=== PATIENT | female | born 1945 | race Caucasian/White ===

== ENCOUNTER 2017-03-20 14:15 | Emergency (ER) | payer MEDICARE, BC ==
[2017-03-20 14:26] VITALS: RESP 18
[2017-03-20] MEDS ORDERED: ONDANSETRON 4 MG/2 ML VIAL IVP STA (14:34)
[2017-03-20] MEDS ORDERED: KETOROLAC 30 MG/ML 1 ML VIAL IVP STA (14:35)
--- NOTE | 2017-03-20 14:39 | ED ---
Nausea/Vomiting/Diarrhea HPI - General Chief complaint: Nausea/Vomiting/Diarrhea Stated complaint: WEAKNESS, FLU LIKE SYMPTOMS Time Seen by Provider: 03/20/17 14:18 Source: patient Mode of arrival: EMS - History of Present Illness Initial comments: This patient is a 71-year-old woman who presents with a number of symptoms. She states that she was in her usual state of health until about 3 days ago when she developed a nonproductive cough. Starting last night she also has been having vomiting and diarrhea as well as myalgias. Patient has had 3 episodes of vomiting this morning. She has not noted blood or bile. She also has had probably 5 episodes of loose bowel movements without noting any blood. MD complaint: nausea, vomiting, diarrhea -: days(s) Description of Vomiting: food contents Associated Abdominal Pain: No Associated Symptoms: myalgias, cough - Related Data Home Medications Medication Instructions Recorded Confirmed Multivitamins, Thera [Multivitamin 1 tab PO DAILY 04/13/16 03/20/17 (formulary)] Nitroglycerin Sl Tabs [Nitrostat] 0.4 mg SUBLINGUAL Q5M PRN 04/13/16 03/20/17 Cyanocobalamin [Vitamin B-12 1,000 mcg SQ Q30D 03/20/17 03/20/17 Injection] Losartan Potassium [Cozaar] 25 mg PO DAILY 03/20/17 03/20/17 Pravastatin Sodium [Pravachol] 20 mg PO HS 03/20/17 03/20/17 amLODIPine [Norvasc] 5 mg PO BID 03/20/17 03/20/17 Previous Rx's Medication Instructions Recorded Ondansetron Odt [Zofran ODT] 4 mg PO Q8HR PRN #10 tab 03/20/17 Allergies Allergy/AdvReac Type Severity Reaction Status Date / Time Penicillins Allergy Rash/Hives Verified 03/20/17 14:36 Sulfa (Sulfonamide Allergy Rash/Hives Verified 03/20/17 14:36 Antibiotics) Review of Systems ROS Statement: Those systems with pertinent positive or pertinent negative responses have been documented in the HPI. ROS Other: All systems not noted in ROS Statement are negative. Constitutional: Denies: fever, chills Respiratory: Reports: cough. Denies: dyspnea, wheezes Cardiovascular: Denies: chest pain, palpitations, syncope Gastrointestinal: Reports: nausea, vomiting, diarrhea. Denies: abdominal pain, constipation, hematemesis, melena, hematochezia Genitourinary: Denies: dysuria Musculoskeletal: Denies: back pain Skin: Denies: rash Neurological: Denies: weakness, numbness Past Medical History Past Medical History: Chest Pain / Angina, CVA/TIA, Fibromyalgia, GERD/Reflux, Hyperlipidemia, Hypertension Additional Past Medical History / Comment(s): DIET CONTROLLED DM-NO MEDS AND NOT CURRENTLY CHECKING BS, ANEMIA,MURMUR,STROKE 2000-LT SIDED WEAKNESS, TIA'S, SINUS PROBLEMS,VARICOSE VEINS, LEAKAGE OF URINE WEARS A PAD,ARTHRITIS,FR RT PATELLA."STATED THEY FOUND MRSA RT KNEE 2012(WAS UNABLE TO TYPE IN UNDER THE MDROS SCREEN) History of Any Multi-Drug Resistant Organisms: MRSA Date of last positivie culture/infection: . MDRO Source:: . Past Surgical History: Back Surgery, Cholecystectomy, Heart Catheterization, Hysterectomy, Tonsillectomy Additional Past Surgical History / Comment(s): DEJAN CATARACT LENSES,COLONOSCOPY, GASTRIC BYPASS,ABDOMINALPLASTY,HERNIA REPAIR,FIDEL CARPAL TUNNEL,RT PATELLA REPAIRED. Past Anesthesia/Blood Transfusion Reactions: No Reported Reaction Past Psychological History: No Psychological Hx Reported Additional Psychological History / Comment(s): PT FEELS LONELY LOST A VERY CLOSE MALE FREIND LESS THAN A YEAR AGO,CRIES EASILY, HER SON HAS BEEN THINKING ABOUT MOVING BACK TO [place]. HAS DIFFICULTY STAYING [place].PT DENIES ANY THOUGHTS OF HARMING SELF NO SUICIDAL THOUGHTS BUT STATED FEELS SOME WHAT HOPLESS /LONELY. Smoking Status: Former smoker Past Alcohol Use History: None Reported Additional Past Alcohol Use History / Comment(s): QUIT 1994 SMOKED A FEW YEARS Past Drug Use History: None Reported - Past Family History Mother Additional Family Medical History / Comment(s): BRAIN TUMOR Father Family Medical History: Myocardial Infarction ([place]) Course Vital Signs 03/20/17 03/20/17 03/20/17 14:19 15:16 16:13 Temperature 98.6 F 98.6 F Pulse Rate 84 75 Respiratory 18 18 Rate Blood Pressure 209/99 225/98 190/86 O2 Sat by Pulse 98 94 L Oximetry 03/20/17 16:50 Temperature 98.7 F Pulse Rate 72 Respiratory 18 Rate Blood Pressure 176/87 O2 Sat by Pulse 94 L Oximetry Medical Decision Making - Medical Decision Making This patient is 71-year-old woman who is in with vomiting and diarrhea, the vomiting has resolved with ondansetron and she is requesting to eat. The patient did have some left trapezius pain and tenderness which only had some minimal improvement with ketorolac and then was given additional Tylenol with codeine. - Lab Data Result diagrams: 03/20/17 14:44 03/20/17 14:44 Lab Results 03/20/17 03/20/17 03/20/17 Range/Units 14:44 14:44 15:39 WBC 13.4 H (3.8-10.6) k/uL RBC 4.07 (3.80-5.40) m/uL Hgb 12.5 (11.4-16.0) gm/dL Hct 37.4 (34.0-46.0) % MCV 91.9 (80.0-100.0) fL MCH 30.7 (25.0-35.0) pg MCHC 33.4 (31.0-37.0) g/dL RDW 13.0 (11.5-15.5) % Plt Count 232 (150-450) k/uL Neutrophils % 82 % Lymphocytes % 13 % Monocytes % 4 % Eosinophils % 1 % Basophils % 0 % Neutrophils # 11.0 H (1.3-7.7) k/uL Lymphocytes # 1.7 (1.0-4.8) k/uL Monocytes # 0.5 (0-1.0) k/uL Eosinophils # 0.1 (0-0.7) k/uL Basophils # 0.0 (0-0.2) k/uL Sodium 139 (137-145) mmol/L Potassium 4.1 (3.5-5.1) mmol/L Chloride 107 (98-107) mmol/L Carbon Dioxide 22 (22-30) mmol/L Anion Gap 10 mmol/L BUN 15 (7-17) mg/dL Creatinine 0.65 (0.52-1.04) mg/dL Est GFR (MDRD) Af Amer >60 (>60 ml/min/1.73 sqM) Est GFR (MDRD) Non-Af >60 (>60 ml/min/1.73 sqM) Glucose 120 H (74-99) mg/dL Calcium 8.9 (8.4-10.2) mg/dL Total Bilirubin 0.8 (0.2-1.3) mg/dL AST 26 (14-36) U/L ALT 25 (9-52) U/L Alkaline Phosphatase 109 (38-126) U/L Total Protein 7.5 (6.3-8.2) g/dL Albumin 4.1 (3.5-5.0) g/dL Amylase 51 (30-110) U/L Lipase 62 (23-300) U/L Urine Color Light Yellow Urine Appearance Clear (Clear) Urine pH 6.0 (5.0-8.0) Ur Specific [place] 1.008 (1.001-1.035) Urine Protein Negative (Negative) Urine Glucose (UA) Negative (Negative) Urine Ketones 1+ H (Negative) Urine Blood Negative (Negative) Urine Nitrite Negative (Negative) Urine Bilirubin Negative (Negative) Urine Urobilinogen <2.0 (<2.0) mg/dL Ur Leukocyte Esterase Negative (Negative) Disposition Clinical Impression: Gastroenteritis, Hypertension Disposition: HOME SELF-CARE Condition: Good Instructions: Acute Nausea and Vomiting (ED), Hypertension (ED) Prescriptions: Ondansetron Odt [Zofran ODT] 4 mg PO Q8HR PRN #10 tab PRN Reason: Nausea Referrals: Jag Suarez MD [Primary Care Provider] - 1-2 days
[2017-03-20 15:00] LABS: Basophils % (A) 0 %; CHCM 33.9; Eosinophils # (A) 0.1 k/uL (0-0.7); Eosinophils % (A) 1 %; HCT 37.4 % (34.0-46.0); HDW 2.41; HGB 12.5 gm/dL (11.4-16.0); Luc # (Auto) 0.12; Luc % (Auto) 1; Lymphocytes # (A) 1.7 k/uL (1.0-4.8); Lymphocytes % (A) 13 %; MCH 30.7 pg (25.0-35.0); MCHC 33.4 g/dL (31.0-37.0); MCV 91.9 fL (80.0-100.0); Mean Platelet Volume 7.2; Monocytes # (A) 0.5 k/uL (0-1.0); Monocytes % (A) 4 %; Neutrophils % (A) 82 %; RBC 4.07 m/uL (3.80-5.40); WBC 13.4 k/uL (3.8-10.6); WBC (Perox) 13.13
[2017-03-20 15:05] LABS: ALT 25 U/L (9-52); AST 26 U/L (14-36); Alkaline Phosphatase 109 U/L (38-126); Amylase 51 U/L (30-110); Anion Gap 10 mmol/L; Blood Urea Nitrogen 15 mg/dL (7-17); Calcium 8.9 mg/dL (8.4-10.2); Carbon Dioxide 22 mmol/L (22-30); Chloride 107 mmol/L (98-107); Glucose 120 mg/dL (74-99); Non-African American GFR(MDRD) >60 (>60 ml/min/1.73 sqM); Potassium 4.1 mmol/L (3.5-5.1); Sodium 139 mmol/L (137-145); Total Bilirubin 0.8 mg/dL (0.2-1.3); Total Protein 7.5 g/dL (6.3-8.2)
[2017-03-20] MEDS ORDERED: LOSARTAN 25 MG TAB PO STA (15:45)
[2017-03-20] MEDS ORDERED: amLODIPine 5 MG TAB PO STA (15:45)
--- NOTE | 2017-03-20 15:47 | XR ---
EXAMINATION TYPE: XR chest 2V DATE OF EXAM: 03/20/2017 3:41 PM COMPARISON: Chest x-ray and CTA chest July 09, 2016. HISTORY: Cough and congestion for 3 days. TECHNIQUE: Frontal and lateral views of the chest are obtained. FINDINGS: There is no focal air space opacity, pleural effusion, or pneumothorax seen. The cardiac silhouette size is within normal limits with atherosclerotic and ectatic thoracic aorta. The osseou s structures are demineralized. Surgical changes epigastric region are noted. IMPRESSION: No acute cardiopulmonary process. No significant change from prior.
[2017-03-20 15:48] LABS: Appearance,Urine Clear (Clear); Bilirubin,Urine Negative (Negative); Glucose,Urine (UA) Negative (Negative); Ketones,Urine 1+ (Negative); Leukocyte Esterase,Urine Negative (Negative); Nitrite,Urine Negative (Negative); Protein,Urine Negative (Negative); Specific Gravity,Urine 1.008 (1.001-1.035); UA Billing (MACRO vs. MICRO) CHEM; Urobilinogen,Urine <2.0 mg/dL (<2.0)
[2017-03-20 16:51] VITALS: BP 176/87; PULSE 72; TEMP 98.7
[2017-03-20] MEDS ORDERED: Acetaminophen-Codeine 300-30mg TAB PO STA (17:27)
== END 2017-03-20 18:09 | disposition home or self-care (01) ==
LOC: EC 14:15
DX: K52.9 Noninfective gastroenteritis and colitis, unspecified (principal); I10 Essential (primary) hypertension; M25.512 Pain in left shoulder; E78.5 Hyperlipidemia, unspecified; Z90.49 Acquired absence of other specified parts of digestive tract; Z87.891 Personal history of nicotine dependence; Z88.0 Allergy status to penicillin; Z88.2 Allergy status to sulfonamides; Z79.899 Other long term (current) drug therapy
CPT/HCPCS: 99284; 96374; 96375; 36415; 80053; 82150; 83690; 85025; 81003; 71020; J2405; J1885

== ENCOUNTER → 2017-07-07 | Outpatient (CLI) | payer MEDICARE, BC ==
--- NOTE | 2017-07-10 10:03 | MM ---
Reason for exam: screening (asymptomatic). Last mammogram was performed 1 year ago. History: Patient is postmenopausal. Family history of breast cancer in sister and breast cancer in sister at age 62. Physical Findings: A clinical breast exam by your physician is recommended on an annual basis and results should be correlated with mammographic findings. MG 3D Screening Mammo W/Cad Bilateral CC and MLO view(s) were taken. Prior study comparison: July 06, 2016, bilateral MG 3d screening mammo w/cad. June 19, 2015, bilateral MG screening mammo w CAD. There are scattered fibroglandular densities. Finding: There are stable vascular calcifications. There is no discrete abnormality. No significant changes in finding since July 06, 2016 and June 19, 2015. ASSESSMENT: Benign, BI-RAD 2 RECOMMENDATION: Routine screening mammogram of both breasts in 1 year.
== END | disposition home or self-care (01) ==
LOC: RADMAMWWP 09:28
PROVIDERS: ATTEND Internal Medicine
DX: Z12.31 Encounter for screening mammogram for malignant neoplasm of breast (principal)
CPT/HCPCS: 77063; G0202

== ENCOUNTER 2017-12-09 11:28 | Emergency (ER) | payer MEDICARE, BC ==
[2017-12-09 11:43] VITALS: TEMP 97.2
--- NOTE | 2017-12-09 11:43 | ED ---
Fall HPI - General Stated Complaint: Fall Time Seen by Provider: 12/09/17 11:28 Source: patient, EMS, RN notes reviewed, old records reviewed - History of Present Illness Initial Comments: This is a 72-year-old female who states she was washing her dentures off at a sink when she started swinging back and forth in family fell backwards hitting her head against a door and the floor. She had no loss of consciousness loss of function to her upper or lower extremities she complains some head neck and lower back pain as well as some pain to the right ankle. EMS was called she was transported here. She was running with a cervical collar in place no backboard. Complaints at this time she did have her follow recently where she hit her head very hard on the floor the CAT scan she states that time which showed no evidence of acute bleeds. She denies any palpitations or chest pain. MD Complaint: fall - Related Data Home Medications Medication Instructions Recorded Confirmed Multivitamins, Thera [Multivitamin 1 tab PO DAILY 04/13/16 12/09/17 (formulary)] Nitroglycerin Sl Tabs [Nitrostat] 0.4 mg SUBLINGUAL Q5M PRN 04/13/16 12/09/17 Aspirin EC [Ecotrin Low Dose] 81 mg PO DAILY 12/09/17 12/09/17 Carboxymethylcellulose Sodium 1 drop BOTH EYES DAILY PRN 12/09/17 12/09/17 [Refresh Tears] Losartan Potassium 100 mg PO DAILY 12/09/17 12/09/17 amLODIPine [Norvasc] 10 mg PO DAILY 12/09/17 12/09/17 Allergies Allergy/AdvReac Type Severity Reaction Status Date / Time Penicillins Allergy Rash/Hives Verified 12/09/17 12:15 Sulfa (Sulfonamide Allergy Rash/Hives Verified 12/09/17 12:15 Antibiotics) Review of Systems ROS Statement: Those systems with pertinent positive or pertinent negative responses have been documented in the HPI. ROS Other: All systems not noted in ROS Statement are negative. Past Medical History Past Medical History: Chest Pain / Angina, CVA/TIA, Fibromyalgia, GERD/Reflux, Hyperlipidemia, Hypertension Additional Past Medical History / Comment(s): DIET CONTROLLED DM-NO MEDS AND NOT CURRENTLY CHECKING BS, ANEMIA,MURMUR,STROKE 2000-LT SIDED WEAKNESS, TIA'S, SINUS PROBLEMS,VARICOSE VEINS, LEAKAGE OF URINE WEARS A PAD,ARTHRITIS,FR RT PATELLA."STATED THEY FOUND MRSA RT KNEE 2012(WAS UNABLE TO TYPE IN UNDER THE MDROS SCREEN) History of Any Multi-Drug Resistant Organisms: MRSA Date of last positivie culture/infection: . MDRO Source:: . Past Surgical History: Back Surgery, Cholecystectomy, Heart Catheterization, Hysterectomy, Tonsillectomy Additional Past Surgical History / Comment(s): DEJAN CATARACT LENSES,COLONOSCOPY, GASTRIC BYPASS,ABDOMINALPLASTY,HERNIA REPAIR,FIDEL CARPAL TUNNEL,RT PATELLA REPAIRED. Past Anesthesia/Blood Transfusion Reactions: No Reported Reaction Past Psychological History: No Psychological Hx Reported Additional Psychological History / Comment(s): PT FEELS LONELY LOST A VERY CLOSE MALE FREIND LESS THAN A YEAR AGO,CRIES EASILY, HER SON HAS BEEN THINKING ABOUT MOVING BACK TO [place]. HAS DIFFICULTY STAYING [place].PT DENIES ANY THOUGHTS OF HARMING SELF NO SUICIDAL THOUGHTS BUT STATED FEELS SOME WHAT HOPLESS /LONELY. Smoking Status: Former smoker Past Alcohol Use History: None Reported Additional Past Alcohol Use History / Comment(s): QUIT 1994 SMOKED A FEW YEARS Past Drug Use History: None Reported - Past Family History Mother Additional Family Medical History / Comment(s): BRAIN TUMOR Father Family Medical History: Myocardial Infarction ([place]) General Exam - General Exam Comments Initial Comments: This is a well-developed well-nourished awake alert oriented 3 female she has a Florencio Coma Scale of 15 Limitations: physical limitation General appearance: alert Head exam: Present: normocephalic (Tennis palpation of the right parietal scalp no step-off or crepitation no obvious ecchymosis no open wounds.) Eye exam: Present: normal appearance, PERRL, EOMI. Absent: scleral icterus, conjunctival injection, periorbital swelling ENT exam: Present: normal exam, mucous membranes moist Neck exam: Present: normal inspection, tenderness (Tenderness palpation over the right lateral neck musculature no midline spinous process tenderness). Absent: meningismus, lymphadenopathy Respiratory exam: Present: normal lung sounds bilaterally. Absent: respiratory distress, wheezes, rales, rhonchi, stridor Cardiovascular Exam: Present: regular rate, normal rhythm, normal heart sounds. Absent: systolic murmur, diastolic murmur, rubs, gallop, clicks GI/Abdominal exam: Present: soft, normal bowel sounds. Absent: distended, tenderness, guarding, rebound, rigid Rectal exam: Present: deferred Extremities exam: Present: full ROM, tenderness (Mild tenderness palpation of the anterior medial right ankle no step-off or crepitation small area of ecchymosis noted) Back exam: Present: normal inspection, tenderness, paraspinal tenderness. Absent: full ROM, CVA tenderness (R), CVA tenderness (L), muscle spasm, rash noted Psychiatric exam: Present: normal affect, normal mood Skin exam: Present: warm, dry, intact, normal color. Absent: rash Course Vital Signs 12/09/17 12/09/17 12/09/17 11:33 13:30 15:07 Temperature 97.2 F L Pulse Rate 59 L 54 L 89 Respiratory 16 18 20 Rate Blood Pressure 206/93 182/70 208/100 O2 Sat by Pulse 98 96 96 Oximetry 12/09/17 12/09/17 12/09/17 15:52 16:04 16:30 Temperature Pulse Rate 66 67 Respiratory 18 Rate Blood Pressure 203/89 203/89 150/74 O2 Sat by Pulse 98 Oximetry Medical Decision Making - Medical Decision Making I did reevaluate patient on multiple occasions patient's blood pressure remained elevated she was ultimately given some medication and didn't improve. She is asymptomatic the presentation is consistent with a vasovagal episode. She was encouraged to increase her fluids follow-up with her doctor return when necessary - Lab Data Result diagrams: 12/09/17 11:50 12/09/17 11:50 Lab Results 12/09/17 12/09/17 12/09/17 Range/Units 11:50 11:50 11:50 WBC 6.5 (3.8-10.6) k/uL RBC 4.25 (3.80-5.40) m/uL Hgb 12.2 (11.4-16.0) gm/dL Hct 38.0 (34.0-46.0) % MCV 89.4 (80.0-100.0) fL MCH 28.8 (25.0-35.0) pg MCHC 32.2 (31.0-37.0) g/dL RDW 13.6 (11.5-15.5) % Plt Count 242 (150-450) k/uL Neutrophils % 55 % Lymphocytes % 34 % Monocytes % 6 % Eosinophils % 2 % Basophils % 0 % Neutrophils # 3.6 (1.3-7.7) k/uL Lymphocytes # 2.2 (1.0-4.8) k/uL Monocytes # 0.4 (0-1.0) k/uL Eosinophils # 0.2 (0-0.7) k/uL Basophils # 0.0 (0-0.2) k/uL PT 9.6 (9.0-12.0) sec INR 1.0 (<1.2) APTT 22.6 (22.0-30.0) sec Sodium 142 (137-145) mmol/L Potassium 3.9 (3.5-5.1) mmol/L Chloride 106 (98-107) mmol/L Carbon Dioxide 28 (22-30) mmol/L Anion Gap 8 mmol/L BUN 14 (7-17) mg/dL Creatinine 0.72 (0.52-1.04) mg/dL Est GFR (MDRD) Af Amer >60 (>60 ml/min/1.73 sqM) Est GFR (MDRD) Non-Af >60 (>60 ml/min/1.73 sqM) Glucose 105 H (74-99) mg/dL Calcium 9.1 (8.4-10.2) mg/dL Magnesium 2.1 (1.6-2.3) mg/dL Total Bilirubin 0.3 (0.2-1.3) mg/dL AST 36 (14-36) U/L ALT 28 (9-52) U/L Alkaline Phosphatase 92 (38-126) U/L Total Creatine Kinase (30-135) U/L CK-MB (CK-2) (0.0-2.4) ng/mL CK-MB (CK-2) Rel Index Troponin I (0.000-0.034) ng/mL Total Protein 7.5 (6.3-8.2) g/dL Albumin 4.1 (3.5-5.0) g/dL Urine Color Urine Appearance (Clear) Urine pH (5.0-8.0) Ur Specific [place] (1.001-1.035) Urine Protein (Negative) Urine Glucose (UA) (Negative) Urine Ketones (Negative) Urine Blood (Negative) Urine Nitrite (Negative) Urine Bilirubin (Negative) Urine Urobilinogen (<2.0) mg/dL Ur Leukocyte Esterase (Negative) 12/09/17 12/09/17 Range/Units 11:50 12:07 WBC (3.8-10.6) k/uL RBC (3.80-5.40) m/uL Hgb (11.4-16.0) gm/dL Hct (34.0-46.0) % MCV (80.0-100.0) fL MCH (25.0-35.0) pg MCHC (31.0-37.0) g/dL RDW (11.5-15.5) % Plt Count (150-450) k/uL Neutrophils % % Lymphocytes % % Monocytes % % Eosinophils % % Basophils % % Neutrophils # (1.3-7.7) k/uL Lymphocytes # (1.0-4.8) k/uL Monocytes # (0-1.0) k/uL Eosinophils # (0-0.7) k/uL Basophils # (0-0.2) k/uL PT (9.0-12.0) sec INR (<1.2) APTT (22.0-30.0) sec Sodium (137-145) mmol/L Potassium (3.5-5.1) mmol/L Chloride (98-107) mmol/L Carbon Dioxide (22-30) mmol/L Anion Gap mmol/L BUN (7-17) mg/dL Creatinine (0.52-1.04) mg/dL Est GFR (MDRD) Af Amer (>60 ml/min/1.73 sqM) Est GFR (MDRD) Non-Af (>60 ml/min/1.73 sqM) Glucose (74-99) mg/dL Calcium (8.4-10.2) mg/dL Magnesium (1.6-2.3) mg/dL Total Bilirubin (0.2-1.3) mg/dL AST (14-36) U/L ALT (9-52) U/L Alkaline Phosphatase (38-126) U/L Total Creatine Kinase 71 (30-135) U/L CK-MB (CK-2) 0.6 (0.0-2.4) ng/mL CK-MB (CK-2) Rel Index 0.8 Troponin I <0.012 (0.000-0.034) ng/mL Total Protein (6.3-8.2) g/dL Albumin (3.5-5.0) g/dL Urine Color Light Yellow Urine Appearance Clear (Clear) Urine pH 7.0 (5.0-8.0) Ur Specific [place] 1.004 (1.001-1.035) Urine Protein Negative (Negative) Urine Glucose (UA) Negative (Negative) Urine Ketones Negative (Negative) Urine Blood Negative (Negative) Urine Nitrite Negative (Negative) Urine Bilirubin Negative (Negative) Urine Urobilinogen <2.0 (<2.0) mg/dL Ur Leukocyte Esterase Negative (Negative) - EKG Data -: EKG Interpreted by Ga EKG shows normal: sinus rhythm (Sinus rhythm rate of 59 PA interval 138 QRS duration 88 QT/QTC of 460/411 st-t wave changes) - Radiology Data Radiology results: report reviewed (I did review the imaging and reports no acute findings.), image reviewed Disposition Clinical Impression: Fall, Vasovagal episode, Hypertension, Dehydration Disposition: HOME SELF-CARE Condition: Good Instructions: Near Syncope (ED), Fall Prevention for Older Adults (ED), Dehydration (ED) Referrals: Jag Suarez MD [Primary Care Provider] - 1-2 days
[2017-12-09 11:59] LABS: Basophils % (A) 0 %; Eosinophils # (A) 0.2 k/uL (0-0.7); Eosinophils % (A) 2 %; HGB 12.2 gm/dL (11.4-16.0); Lymphocytes # (A) 2.2 k/uL (1.0-4.8); Lymphocytes % (A) 34 %; MCH 28.8 pg (25.0-35.0); MCHC 32.2 g/dL (31.0-37.0); MCV 89.4 fL (80.0-100.0); Mean Platelet Volume 7.8; Monocytes # (A) 0.4 k/uL (0-1.0); Monocytes % (A) 6 %; Neutrophils # (A) 3.6 k/uL (1.3-7.7); Neutrophils % (A) 55 %; Platelet Count 242 k/uL (150-450); RBC 4.25 m/uL (3.80-5.40); RDW 13.6 % (11.5-15.5); WBC 6.5 k/uL (3.8-10.6)
[2017-12-09 12:12] LABS: Partial Thromboplastin Time 22.6 sec (22.0-30.0); Prothrombin Time 9.6 sec (9.0-12.0)
[2017-12-09 12:14] LABS: Appearance,Urine Clear (Clear); Bilirubin,Urine Negative (Negative); Blood,Urine Negative (Negative); Color,Urine Light Yellow; Glucose,Urine (UA) Negative (Negative); Ketones,Urine Negative (Negative); Leukocyte Esterase,Urine Negative (Negative); Nitrite,Urine Negative (Negative); Protein,Urine Negative (Negative); Specific Gravity,Urine 1.004 (1.001-1.035); Urobilinogen,Urine <2.0 mg/dL (<2.0)
[2017-12-09 12:21] LABS: ALT 28 U/L (9-52); AST 36 U/L (14-36); Albumin 4.1 g/dL (3.5-5.0); Alkaline Phosphatase 92 U/L (38-126); Anion Gap 8 mmol/L; Blood Urea Nitrogen 14 mg/dL (7-17); Calcium 9.1 mg/dL (8.4-10.2); Carbon Dioxide 28 mmol/L (22-30); Chloride 106 mmol/L (98-107); Creatine Kinase 71 U/L (30-135); Glucose 105 mg/dL (74-99); Magnesium 2.1 mg/dL (1.6-2.3); Sodium 142 mmol/L (137-145); Total Bilirubin 0.3 mg/dL (0.2-1.3); Total Protein 7.5 g/dL (6.3-8.2)
[2017-12-09 12:24] LABS: Potassium 3.9 mmol/L (3.5-5.1)
[2017-12-09 12:33] LABS: Creatine Kinase MB 0.6 ng/mL (0.0-2.4); Troponin I <0.012 ng/mL (0.000-0.034)
--- NOTE | 2017-12-09 14:08 | CT ---
EXAMINATION TYPE: CT brain cspine wo con DATE OF EXAM: 12/09/2017 COMPARISON: Previous study dated 07/09/2016 HISTORY: Fall CT DLP: Brain (892.10) and C-spine (283.10) mGycm Automated exposure control for dose reduction was used. TECHNIQUE: CT scan of the head and cervical spine are performed without contrast. FINDINGS: BRAIN: There are generalized changes of sulcal prominence and ventriculomegaly, compatible with atrop hic change. There is evidence of a previous right MCA infarct. There is no acute focal lesion, mass e ffect or midline shift identified. I do not see evidence of intracranial blood. Visualized portions of the paranasal sinuses and mastoids are clear. No depressed skull fracture is s een. IMPRESSION: 1. NO ACUTE INTRACRANIAL ABNORMALITY. 2. EVIDENCE OF AN OLD RIGHT MCA INFARCT. 3. MILD ATROPHIC CHANGE. 4. CHRONIC WHITE MATTER ISCHEMIC CHANGE. CERVICAL SPINE: Visualized portions of the lungs are clear. Prevertebral soft tissues are normal. Vertebral body height and alignment are maintained. Atlantoaxial relationships are normal. There is d egenerative disc disease and hypertrophic spondylosis at C5-6, C6-7 and C7-T1. There is uncovertebral joint disease at these levels. There is mild facet arthropathy on the left at C2-3. There is a bony spur present posterior laterally on the left at C5-6 causing intervertebral foraminal narrowing at th is level on the left. No definite protrusion is seen. No fractures identified. IMPRESSION: 1. NO ACUTE OSSEOUS LESION. 2. DEGENERATIVE CHANGE. 3. INTERVERTEBRAL FORAMINAL NARROWING ON THE LEFT, C5-6.
[2017-12-09] MEDS ORDERED: SODIUM CHLORIDE 0.9% 500 ML IV STA (14:15)
[2017-12-09] MEDS ORDERED: ACETAMINOPHEN TAB 500 MG TAB PO STA (14:56)
[2017-12-09] MEDS ORDERED: amLODIPine 10 MG TAB PO STA (15:02)
--- NOTE | 2017-12-09 15:07 | XR ---
EXAMINATION TYPE: XR lumbosacral spine min 4V DATE OF EXAM: 12/09/2017 CLINICAL HISTORY: Falls with back pain. TECHNIQUE: Frontal, lateral, and oblique images of the lumbar spine are obtained. COMPARISON: None FINDINGS: There are 5 lumbar type vertebral bodies identified. Endplate spurring is noted at multipl e levels. There is no compression deformity identified. There is grade 1 anterolisthesis of L4 on L5. There is grade 1 retrolisthesis of L2 on L3. Calcifications are identified in the aorta. Multiple padgett rgical clips are identified in the upper abdomen. There is loss of intervertebral disc space height a t all levels. No acute fracture or subluxation is identified. IMPRESSION: Degenerative changes are identified without an acute abnormality.
--- NOTE | 2017-12-09 15:19 | XR ---
EXAMINATION TYPE: XR chest 2V DATE OF EXAM: 12/09/2017 COMPARISON: March 20, 2017 HISTORY: Cough TECHNIQUE: Frontal and lateral views of the chest are obtained. FINDINGS: There is no focal air space opacity, pleural effusion, or pneumothorax seen. The cardiac silhouette size is within normal limits. The osseous structures are intact. IMPRESSION: No acute cardiopulmonary process.
--- NOTE | 2017-12-09 15:21 | XR ---
EXAMINATION TYPE: XR pelvis AP view DATE OF EXAM: 12/09/2017 CLINICAL HISTORY: Fall with pain TECHNIQUE: A single AP view of the pelvis is obtained. COMPARISON: None. FINDINGS: There is been previous intramedullary nailing and screw placement in the right femur. There is a displaced fracture of the lesser trochanter. There is no definite acute fracture subluxation id entified. Soft tissues are unremarkable. IMPRESSION: Previous intervention in the right femur is noted. There is a displaced fracture fragment from a less er trochanter fracture, this is felt to be related to prior injury. No definite acute fracture or sub luxation is identified.
[2017-12-09] MEDS ORDERED: hydrALAZINE HCL 20 MG/ML 1 ML VIAL IVP STA (16:04)
[2017-12-09 16:55] VITALS: BP 150/70; PULSE 70; RESP 20
== END 2017-12-09 17:04 | disposition home or self-care (01) ==
LOC: EC 11:28
DX: I10 Essential (primary) hypertension (principal); E86.0 Dehydration; R55 Syncope and collapse; M54.2 Cervicalgia; M54.5 Low back pain; M25.571 Pain in right ankle and joints of right foot; Z86.73 Personal history of transient ischemic attack (TIA), and cerebral infarction without residual deficits; Z86.14 Personal history of Methicillin resistant Staphylococcus aureus infection; Z95.5 Presence of coronary angioplasty implant and graft; Z87.891 Personal history of nicotine dependence; Z79.82 Long term (current) use of aspirin; Z79.899 Other long term (current) drug therapy; Z88.0 Allergy status to penicillin; Z88.2 Allergy status to sulfonamides; W01.198A Fall on same level from slipping, tripping and stumbling with subsequent striking against other object, initial encounter; Y92.009 Unspecified place in unspecified non-institutional (private) residence as the place of occurrence of the external cause; Y93.89 Activity, other specified
CPT/HCPCS: 36415; 93005; 80053; 82550; 82553; 83735; 84484; 85025; 85610; 85730; 81003; 72110; 72170; 71046; 72125; 70450; 99285; 96374; 96361; J0360

== ENCOUNTER → 2018-09-24 | Outpatient (CLI) | payer MEDICARE, BC ==
[2018-09-24 13:10] LABS: Cholesterol 182 mg/dL (<200); HDL Cholesterol 78 mg/dL (40-60); LDL Cholesterol,Calculated 76 mg/dL (0-99); Triglycerides 142 mg/dL (<150)
--- NOTE | 2018-09-27 10:26 | MM ---
Reason for exam: screening (asymptomatic). Last mammogram was performed 1 year and 3 months ago. History: Patient is postmenopausal. Family history of breast cancer in sister and breast cancer in sister at age 62. MG 3D Screening Mammo W/Cad Bilateral CC and MLO view(s) were taken. Prior study comparison: July 07, 2017, bilateral MG 3d screening mammo w/cad. July 06, 2016, bilateral MG 3d screening mammo w/cad. There are scattered fibroglandular densities. There are benign appearing bilateral calcifications. No suspicious abnormality. No significant changes when compared with prior studies. ASSESSMENT: Benign, BI-RAD 2 RECOMMENDATION: Routine screening mammogram of both breasts in 1 year.
== END | disposition home or self-care (01) ==
LOC: RADMAMWWP 11:51
PROVIDERS: ATTEND Internal Medicine Hospice and Palliative Medicine
DX: Z12.31 Encounter for screening mammogram for malignant neoplasm of breast (principal); E78.5 Hyperlipidemia, unspecified
CPT/HCPCS: 36415; 77063; 77067; 80061

== ENCOUNTER 2018-11-09 19:39 | Inpatient (IN) | payer MEDICARE, BC ==
[2018-11-09] MEDS ORDERED: SODIUM CHLORIDE 0.9% 500 ML 500 ML IV STA (19:48)
[2018-11-09] MEDS ORDERED: SODIUM CHLORIDE 0.9% 1,000 ML IV STA (19:48)
--- NOTE | 2018-11-09 19:49 | ED ---
Neuro HPI - General Stated Complaint: Poss CVA Time Seen by Provider: 11/09/18 19:48 Source: RN notes reviewed, old records reviewed - History of Present Illness Is the patient presenting with stroke symptoms?: No Initial Comments: This is a 73-year-old female the ER for evaluation. Patient resents today for evaluation regarding altered mental status, decreased level responsiveness. Patient's poor strain history obtained from family members at bedside as well as EMS and patient's chart Location: altered Place: home (Extended care facility) Severity: mild Quality: weak Improves With: none Worsens With: none Context: gradual onset Associated Symptoms: confusion, loss of appetite, weakness Treatments Prior to Arrival: none - Related Data Home Medications: Home Medications Medication Instructions Recorded Confirmed Multivitamins, Thera [Multivitamin 1 tab PO DAILY 04/13/16 11/09/18 (formulary)] Nitroglycerin Sl Tabs [Nitrostat] 0.4 mg SUBLINGUAL Q5M PRN 04/13/16 11/09/18 Aspirin EC [Ecotrin Low Dose] 81 mg PO DAILY 12/09/17 11/09/18 Acetaminophen Suppository [Tylenol 325 mg RECTAL Q4H PRN 11/09/18 11/09/18 Suppository] Atorvastatin [Lipitor] 10 mg PO HS 11/09/18 11/09/18 Bisacodyl 10 mg RECTAL DAILY PRN 11/09/18 11/09/18 Cholecalciferol (Vitamin D3) 2,000 unit PO DAILY 11/09/18 11/09/18 [Vitamin D3] Clopidogrel [Plavix] 75 mg PO DAILY 11/09/18 11/09/18 Cyanocobalamin (Vitamin B-12) 1,000 mcg PO DAILY 11/09/18 11/09/18 [Vitamin B-12] Folic Acid 1 mg PO DAILY 11/09/18 11/09/18 Lactose-Reduced Food [Ensure Plus] 1 can PO TID 11/09/18 11/09/18 Lansoprazole [Prevacid] 30 mg PO DAILY 11/09/18 11/09/18 Losartan [Cozaar] 50 mg PO DAILY 11/09/18 11/09/18 Magnesium Hydroxide [Milk of 2,400 mg PO DAILY PRN 11/09/18 11/09/18 Magnesia] Menthol [Biofreeze] 1 applic TOPICAL BID 11/09/18 11/09/18 Metoprolol Succinate (ER) [Toprol 25 mg PO DAILY 11/09/18 11/09/18 Xl] Na Phos,M-B/Na Phos,Di-Ba [Fleet 133 ml RECTAL ONCE PRN 11/09/18 11/09/18 Adult] Sertraline [Zoloft] 50 mg PO HS 11/09/18 11/09/18 amLODIPine BESYLATE 5 mg PO DAILY 11/09/18 11/09/18 Allergies/Adverse Reactions: Allergies Allergy/AdvReac Type Severity Reaction Status Date / Time lisinopril Allergy Unknown Verified 11/09/18 20:12 Penicillins Allergy Rash/Hives Verified 11/09/18 20:12 Sulfa (Sulfonamide Allergy Rash/Hives Verified 11/09/18 20:12 Antibiotics) Review of Systems ROS Statement: Those systems with pertinent positive or pertinent negative responses have been documented in the HPI. ROS Other: All systems not noted in ROS Statement are negative. General Exam General appearance: alert, in no apparent distress Head exam: Present: atraumatic, normocephalic, normal inspection Eye exam: Present: normal appearance, PERRL, EOMI. Absent: scleral icterus, conjunctival injection, periorbital swelling ENT exam: Present: normal exam, mucous membranes moist Neck exam: Present: normal inspection. Absent: tenderness, meningismus, lymphadenopathy Respiratory exam: Present: normal lung sounds bilaterally. Absent: respiratory distress, wheezes, rales, rhonchi, stridor Cardiovascular Exam: Present: regular rate, normal rhythm, normal heart sounds. Absent: systolic murmur, diastolic murmur, rubs, gallop, clicks GI/Abdominal exam: Present: soft, normal bowel sounds. Absent: distended, tenderness, guarding, rebound, rigid Extremities exam: Present: normal inspection, full ROM, normal capillary refill. Absent: tenderness, pedal edema, joint swelling, calf tenderness Back exam: Present: normal inspection Neurological exam: Present: alert, oriented X3, CN II-XII intact Psychiatric exam: Present: normal affect, normal mood Skin exam: Present: warm, dry, intact, normal color. Absent: rash Stroke MDM - Lab Data Result diagrams: 11/09/18 19:55 11/09/18 19:55 Lab Results 11/09/18 11/09/18 11/09/18 Range/Units 19:55 19:55 19:55 WBC 11.7 H (3.8-10.6) k/uL RBC 3.45 L (3.80-5.40) m/uL Hgb 10.3 L (11.4-16.0) gm/dL Hct 30.8 L (34.0-46.0) % MCV 89.5 (80.0-100.0) fL MCH 29.9 (25.0-35.0) pg MCHC 33.5 (31.0-37.0) g/dL RDW 12.8 (11.5-15.5) % Plt Count 335 (150-450) k/uL Neutrophils % 77 % Lymphocytes % 15 % Monocytes % 7 % Eosinophils % 1 % Basophils % 0 % Neutrophils # 8.9 H (1.3-7.7) k/uL Lymphocytes # 1.7 (1.0-4.8) k/uL Monocytes # 0.8 (0-1.0) k/uL Eosinophils # 0.1 (0-0.7) k/uL Basophils # 0.0 (0-0.2) k/uL PT (9.0-12.0) sec INR (<1.2) APTT (22.0-30.0) sec Sodium 139 (137-145) mmol/L Potassium 4.3 (3.5-5.1) mmol/L Chloride 104 (98-107) mmol/L Carbon Dioxide 28 (22-30) mmol/L Anion Gap 7 mmol/L BUN 22 H (7-17) mg/dL Creatinine 0.64 (0.52-1.04) mg/dL Est GFR (CKD-EPI)AfAm >90 (>60 ml/min/1.73 sqM) Est GFR (CKD-EPI)NonAf 88 (>60 ml/min/1.73 sqM) Glucose 144 H (74-99) mg/dL Plasma Lactic Acid Ten (0.7-2.0) mmol/L Calcium 9.1 (8.4-10.2) mg/dL Phosphorus 3.9 (2.5-4.5) mg/dL Magnesium 2.0 (1.6-2.3) mg/dL Total Bilirubin 0.3 (0.2-1.3) mg/dL AST 19 (14-36) U/L ALT 19 (9-52) U/L Alkaline Phosphatase 79 (38-126) U/L Total Creatine Kinase <20 L (30-135) U/L CK-MB (CK-2) <0.2 (0.0-2.4) ng/mL CK-MB (CK-2) Rel Index Troponin I <0.012 (0.000-0.034) ng/mL Total Protein 6.4 (6.3-8.2) g/dL Albumin 3.2 L (3.5-5.0) g/dL Urine Color Urine Appearance (Clear) Urine pH (5.0-8.0) Ur Specific [place] (1.001-1.035) Urine Protein (Negative) Urine Glucose (UA) (Negative) Urine Ketones (Negative) Urine Blood (Negative) Urine Nitrite (Negative) Urine Bilirubin (Negative) Urine Urobilinogen (<2.0) mg/dL Ur Leukocyte Esterase (Negative) Urine RBC (0-5) /hpf Urine WBC (0-5) /hpf Ur Squamous Epith Cells (0-4) /hpf Calcium Oxalate Crystal (None) /hpf Amorphous Sediment (None) /hpf Urine Bacteria (None) /hpf Hyaline Casts (0-2) /lpf Urine Mucus (None) /hpf Influenza Type A RNA (Not Detectd) Influenza Type B (PCR) (Not Detectd) 11/09/18 11/09/18 11/09/18 Range/Units 19:55 19:55 21:02 WBC (3.8-10.6) k/uL RBC (3.80-5.40) m/uL Hgb (11.4-16.0) gm/dL Hct (34.0-46.0) % MCV (80.0-100.0) fL MCH (25.0-35.0) pg MCHC (31.0-37.0) g/dL RDW (11.5-15.5) % Plt Count (150-450) k/uL Neutrophils % % Lymphocytes % % Monocytes % % Eosinophils % % Basophils % % Neutrophils # (1.3-7.7) k/uL Lymphocytes # (1.0-4.8) k/uL Monocytes # (0-1.0) k/uL Eosinophils # (0-0.7) k/uL Basophils # (0-0.2) k/uL PT 9.5 (9.0-12.0) sec INR 0.9 (<1.2) APTT 25.3 (22.0-30.0) sec Sodium (137-145) mmol/L Potassium (3.5-5.1) mmol/L Chloride (98-107) mmol/L Carbon Dioxide (22-30) mmol/L Anion Gap mmol/L BUN (7-17) mg/dL Creatinine (0.52-1.04) mg/dL Est GFR (CKD-EPI)AfAm (>60 ml/min/1.73 sqM) Est GFR (CKD-EPI)NonAf (>60 ml/min/1.73 sqM) Glucose (74-99) mg/dL Plasma Lactic Acid Ten 1.6 (0.7-2.0) mmol/L Calcium (8.4-10.2) mg/dL Phosphorus (2.5-4.5) mg/dL Magnesium (1.6-2.3) mg/dL Total Bilirubin (0.2-1.3) mg/dL AST (14-36) U/L ALT (9-52) U/L Alkaline Phosphatase (38-126) U/L Total Creatine Kinase (30-135) U/L CK-MB (CK-2) (0.0-2.4) ng/mL CK-MB (CK-2) Rel Index Troponin I (0.000-0.034) ng/mL Total Protein (6.3-8.2) g/dL Albumin (3.5-5.0) g/dL Urine Color Yellow Urine Appearance Cloudy H (Clear) Urine pH 5.5 (5.0-8.0) Ur Specific [place] 1.019 (1.001-1.035) Urine Protein Trace H (Negative) Urine Glucose (UA) Negative (Negative) Urine Ketones Negative (Negative) Urine Blood Negative (Negative) Urine Nitrite Negative (Negative) Urine Bilirubin Negative (Negative) Urine Urobilinogen 2.0 (<2.0) mg/dL Ur Leukocyte Esterase Small H (Negative) Urine RBC 5 (0-5) /hpf Urine WBC 31 H (0-5) /hpf Ur Squamous Epith Cells 10 H (0-4) /hpf Calcium Oxalate Crystal Few H (None) /hpf Amorphous Sediment Few H (None) /hpf Urine Bacteria Occasional H (None) /hpf Hyaline Casts 1 (0-2) /lpf Urine Mucus Occasional H (None) /hpf Influenza Type A RNA (Not Detectd) Influenza Type B (PCR) (Not Detectd) 11/09/18 Range/Units 21:10 WBC (3.8-10.6) k/uL RBC (3.80-5.40) m/uL Hgb (11.4-16.0) gm/dL Hct (34.0-46.0) % MCV (80.0-100.0) fL MCH (25.0-35.0) pg MCHC (31.0-37.0) g/dL RDW (11.5-15.5) % Plt Count (150-450) k/uL Neutrophils % % Lymphocytes % % Monocytes % % Eosinophils % % Basophils % % Neutrophils # (1.3-7.7) k/uL Lymphocytes # (1.0-4.8) k/uL Monocytes # (0-1.0) k/uL Eosinophils # (0-0.7) k/uL Basophils # (0-0.2) k/uL PT (9.0-12.0) sec INR (<1.2) APTT (22.0-30.0) sec Sodium (137-145) mmol/L Potassium (3.5-5.1) mmol/L Chloride (98-107) mmol/L Carbon Dioxide (22-30) mmol/L Anion Gap mmol/L BUN (7-17) mg/dL Creatinine (0.52-1.04) mg/dL Est GFR (CKD-EPI)AfAm (>60 ml/min/1.73 sqM) Est GFR (CKD-EPI)NonAf (>60 ml/min/1.73 sqM) Glucose (74-99) mg/dL Plasma Lactic Acid Ten (0.7-2.0) mmol/L Calcium (8.4-10.2) mg/dL Phosphorus (2.5-4.5) mg/dL Magnesium (1.6-2.3) mg/dL Total Bilirubin (0.2-1.3) mg/dL AST (14-36) U/L ALT (9-52) U/L Alkaline Phosphatase (38-126) U/L Total Creatine Kinase (30-135) U/L CK-MB (CK-2) (0.0-2.4) ng/mL CK-MB (CK-2) Rel Index Troponin I (0.000-0.034) ng/mL Total Protein (6.3-8.2) g/dL Albumin (3.5-5.0) g/dL Urine Color Urine Appearance (Clear) Urine pH (5.0-8.0) Ur Specific [place] (1.001-1.035) Urine Protein (Negative) Urine Glucose (UA) (Negative) Urine Ketones (Negative) Urine Blood (Negative) Urine Nitrite (Negative) Urine Bilirubin (Negative) Urine Urobilinogen (<2.0) mg/dL Ur Leukocyte Esterase (Negative) Urine RBC (0-5) /hpf Urine WBC (0-5) /hpf Ur Squamous Epith Cells (0-4) /hpf Calcium Oxalate Crystal (None) /hpf Amorphous Sediment (None) /hpf Urine Bacteria (None) /hpf Hyaline Casts (0-2) /lpf Urine Mucus (None) /hpf Influenza Type A RNA Not Detected (Not Detectd) Influenza Type B (PCR) Not Detected (Not Detectd) - Medical Decision Making 73 female the ER with altered mental status 3-4 days, decreased RESPONSIVENESS. THIS IS A RECURRENT ISSUE FOR THIS PATIENT, SHE IS COMING IN FROM [facility] IN [address] FOR REHABILITATION. PATIENT IS MULTIPLE RECENT HOSPITAL ADMISSIONS. PATIENT COMING IN TODAY AGAIN FOR ALTERED MENTAL STATUS FOUND TO HAVE URINARY TRACT INFECTION - EKG Data -: EKG Interpreted by Me (EKG shows normal sinus rhythm rate of 69, VT 1:30, QRS 70, QTc 437) Past Medical History Past Medical History: Chest Pain / Angina, CVA/TIA, Fibromyalgia, GERD/Reflux, Hyperlipidemia, Hypertension Additional Past Medical History / Comment(s): DIET CONTROLLED DM-NO MEDS AND NOT CURRENTLY CHECKING BS, ANEMIA,MURMUR,STROKE 2000-LT SIDED WEAKNESS, TIA'S, SINUS PROBLEMS,VARICOSE VEINS, LEAKAGE OF URINE WEARS A PAD,ARTHRITIS,FR RT PATELLA."STATED THEY FOUND MRSA RT KNEE 2012(WAS UNABLE TO TYPE IN UNDER THE MDROS SCREEN) History of Any Multi-Drug Resistant Organisms: MRSA Date of last positivie culture/infection: . MDRO Source:: . Past Surgical History: Back Surgery, Cholecystectomy, Heart Catheterization, Hysterectomy, Tonsillectomy Additional Past Surgical History / Comment(s): DEJAN CATARACT LENSES,COLONOSCOPY, GASTRIC BYPASS,ABDOMINALPLASTY,HERNIA REPAIR,FIDEL CARPAL TUNNEL,RT PATELLA REPAIRED. Past Anesthesia/Blood Transfusion Reactions: No Reported Reaction Past Psychological History: No Psychological Hx Reported Additional Psychological History / Comment(s): PT FEELS LONELY LOST A VERY CLOSE MALE FREIND LESS THAN A YEAR AGO,CRIES EASILY, HER SON HAS BEEN THINKING ABOUT MOVING BACK TO [place]. HAS DIFFICULTY STAYING ALSEEP.PT DENIES ANY THOUGHTS OF HARMING SELF NO SUICIDAL THOUGHTS BUT STATED FEELS SOME WHAT HOPLESS /LONELY. Smoking Status: Former smoker Past Alcohol Use History: None Reported Additional Past Alcohol Use History / Comment(s): QUIT 1995 SMOKED A FEW YEARS Past Drug Use History: None Reported - Past Family History Mother Additional Family Medical History / Comment(s): BRAIN TUMOR Father Family Medical History: Myocardial Infarction ([place]) Course Vital Signs 11/09/18 11/09/18 11/09/18 19:59 21:14 22:29 Temperature 100.0 F H Pulse Rate 71 74 73 Respiratory 15 17 18 Rate Blood Pressure 135/71 157/78 149/77 O2 Sat by Pulse 96 99 99 Oximetry - Reevaluation(s) Reevaluation #1: 11/09/18 23:19 medical record is reviewed Reevaluation #2: 11/09/18 23:19 Patient remains with altered mental status, family states not acting at baseline , decreased level responsiveness Disposition Clinical Impression: UTI (urinary tract infection), Weakness, Altered mental state, Dehydration Disposition: ADMITTED IP TO THIS [facility] Condition: Fair Is patient prescribed a controlled substance at d/c from ED?: No Referrals: Samanta Samuel MD [Primary Care Provider] - 1-2 days
[2018-11-09 20:20] LABS: Basophils % (A) 0 %; Eosinophils # (A) 0.1 k/uL (0-0.7); Eosinophils % (A) 1 %; HCT 30.8 % (34.0-46.0); HGB 10.3 gm/dL (11.4-16.0); Lymphocytes # (A) 1.7 k/uL (1.0-4.8); Lymphocytes % (A) 15 %; MCH 29.9 pg (25.0-35.0); MCHC 33.5 g/dL (31.0-37.0); MCV 89.5 fL (80.0-100.0); Mean Platelet Volume 7.1; Monocytes # (A) 0.8 k/uL (0-1.0); Monocytes % (A) 7 %; Neutrophils # (A) 8.9 k/uL (1.3-7.7); Neutrophils % (A) 77 %; Platelet Count 335 k/uL (150-450); RBC 3.45 m/uL (3.80-5.40); RDW 12.8 % (11.5-15.5); WBC 11.7 k/uL (3.8-10.6)
[2018-11-09 20:29] LABS: ALT 19 U/L (9-52); AST 19 U/L (14-36); Albumin 3.2 g/dL (3.5-5.0); Alkaline Phosphatase 79 U/L (38-126); Anion Gap 7 mmol/L; Blood Urea Nitrogen 22 mg/dL (7-17); Calcium 9.1 mg/dL (8.4-10.2); Carbon Dioxide 28 mmol/L (22-30); Chloride 104 mmol/L (98-107); Glucose 144 mg/dL (74-99); Phosphorus 3.9 mg/dL (2.5-4.5); Potassium 4.3 mmol/L (3.5-5.1); Sodium 139 mmol/L (137-145); Total Bilirubin 0.3 mg/dL (0.2-1.3); Total Protein 6.4 g/dL (6.3-8.2)
[2018-11-09 20:38] LABS: INR 0.9 (<1.2); Partial Thromboplastin Time 25.3 sec (22.0-30.0); Prothrombin Time 9.5 sec (9.0-12.0)
[2018-11-09 20:40] LABS: Creatine Kinase <20 U/L (30-135)
--- NOTE | 2018-11-09 20:46 | CT ---
EXAMINATION TYPE: CT brain wo con DATE OF EXAM: 11/09/2018 COMPARISON: 12/09/2017 HISTORY: Altered mental status CT DLP: 1156.4 mGycm Automated exposure control for dose reduction was used. FINDINGS: There is a 6 x 3 cm area of gaona-white matter hypodensity in the right posterior frontal lobe related to old cortical infarct. There is also some patchy hypodensity in the right parietal lobe that measu res 4 cm also consistent with old infarct. There is cerebral cortical atrophy. There is no midline sh ift. There is no sign of intracranial hemorrhage. There is 3.5 cm area of hypodensity in the left posterior frontal lobe gaona-white matter that is a ch efra compared to last exam. The calvarium is intact. IMPRESSION: OLD RIGHT FRONTAL AND RIGHT PARIETAL CORTICAL INFARCTS UNCHANGED. THERE IS EVIDENCE OF NEW INFARCT IN THE LEFT POSTERIOR FRONTAL LOBE COMPARED TO OLD EXAM.
[2018-11-09 20:53] LABS: Creatine Kinase MB <0.2 ng/mL (0.0-2.4); Troponin I <0.012 ng/mL (0.000-0.034)
[2018-11-09 21:19] LABS: Amorphous Sediment,Urine Few /hpf; Appearance,Urine Cloudy (Clear); Bacteria,Urine Occasional /hpf; Bilirubin,Urine Negative (Negative); Blood,Urine Negative (Negative); Calcium Oxalate Crystals,Urine Few /hpf; Color,Urine Yellow; Glucose,Urine (UA) Negative (Negative); Hyaline Casts,Urine 1 /lpf (0-2); Ketones,Urine Negative (Negative); Leukocyte Esterase,Urine Small (Negative); Mucus,Urine Occasional /hpf; Nitrite,Urine Negative (Negative); PH, Urine 5.5 (5.0-8.0); Protein,Urine Trace (Negative); RBC,Urine 5 /hpf (0-5); Specific Gravity,Urine 1.019 (1.001-1.035); Squamous Epithelial Cell,Urine 10 /hpf (0-4); WBC,Urine 31 /hpf (0-5)
[2018-11-09] MEDS ORDERED: ACETAMINOPHEN TAB 500 MG TAB PO STA (21:32)
[2018-11-09] MEDS ORDERED: cefTRIAXone 2,000 MG in SODIUM CHLORIDE 0.9% 100 ML IVPB STA (21:33)
--- NOTE | 2018-11-09 22:00 | XR ---
EXAMINATION TYPE: XR chest 2V DATE OF EXAM: 11/09/2018 COMPARISON: 12/09/2017 HISTORY: Weakness TECHNIQUE: Frontal and lateral views of the chest are obtained. FINDINGS: There is no heart failure nor confluent pneumonic infiltrate. Costophrenic angles are saji r. Thoracic aorta is atheromatous. There are chest leads. Bony thorax appears intact. IMPRESSION: No active cardiopulmonary disease. Atheromatous aorta. No change.
[2018-11-10 00:47] VITALS: BMI 24.7
[2018-11-10] MEDS: ENOXAPARIN 40 MG/0.4 ML SYRINGE SQ SCH (10:36)
[2018-11-10] MEDS ORDERED: BISACODYL 10 MG SUPP RECTAL PRN (10:57)
[2018-11-10] MEDS ORDERED: ACETAMINOPHEN SUPPOSITORY 650 MG SUPP RECTAL PRN (10:57)
[2018-11-10] MEDS ORDERED: MAGNESIUM HYDROXIDE 2,400 MG/10 ML CUP PO PRN (10:57)
[2018-11-10] MEDS ORDERED: NITROGLYCERIN SL TABS 0.4 MG TAB SUBLINGUAL PRN (10:57)
[2018-11-10] MEDS ORDERED: NA PHOS,M-B/NA PHOS,DI-BA 133 ML ENEMA RECTAL PRN (10:57)
[2018-11-10] MEDS: LOSARTAN 50 MG TAB PO SCH (12:48)
[2018-11-10] MEDS: CLOPIDOGREL 75 MG TAB PO SCH (12:48)
[2018-11-10] MEDS: amLODIPine 5 MG TAB PO SCH (12:48)
[2018-11-10] MEDS: FOLIC ACID 1 MG TAB PO SCH (12:48)
[2018-11-10] MEDS: METOPROLOL SUCCINATE (ER) 25 MG TAB.ER.24H PO SCH (12:48)
[2018-11-10] MEDS: ASPIRIN 81 MG PO SCH (12:48)
[2018-11-10] MEDS ORDERED: NON-FORMULARY DRUG (Lactose-Reduced Food [Ensure Plus] 1 CAN) PO SCH (16:00)
--- NOTE | 2018-11-10 18:33 | HP ---
HISTORY AND PHYSICAL DATE OF SERVICE: 11/10/2018 CHIEF COMPLAINT: Change in mental status. I am seeing the patient per Dr. Mehta's request. HISTORY OF PRESENT ILLNESS: This 73-year-old woman with a past medical history of recent stroke on the left side, history of CVA, TIA, fibromyalgia, GERD, hypertension, hyperlipidemia being followed by Dr. Samuel in the [facility] came to [facility] with complaints of change in mental status. Patient with decreased level of responsiveness. The patient previously had UTI with similar symptoms and patient found to have UTI and patient was found to have UTI and the patient admitted to the hospital for further evaluation. IV antibiotics were initiated. The white count is elevated at 11.7. Cultures are pending at this time. The CT scan of the brain was done on admission which showed old right frontal and parietal cortical infarcts and no evidence of new infarct was noted. The patient is unable to give a coherent history because of the dysphagia and most of the history taken from my discussion with staff and review of chart and discussion with the family at the bedside. PAST MEDICAL HISTORY: History of recent stroke as described, fibromyalgia, TIA, GERD, hypertension, hyperlipidemia, history of diet-controlled diabetes mellitus, history of back surgery, cholecystectomy. MEDICATIONS: Prior to admission include home medications are: 1. Norvasc 5 mg p.o. daily. 2. Zoloft 50 mg q.h.s. 3. Nitrostat 0.4 mg p.r.n. 4. Fleet 133 p.r.n. 5. Multivitamins. 6. Toprol XL 20 mg daily. 7. Biofreeze 1 application b.i.d. 8. Milk of magnesia 2.4 p.r.n. 9. Cozaar 50 mg p.o. daily. 10.Prevacid 30 mg p.o. daily. 11.Ensure Plus 1 can p.o. t.i.d. 12.Folic acid 1 mg p.o. daily. 13.Vitamin B12 1000 mcg p.o. daily. 14.Plavix 75 mg p.o. daily. 15.Vitamin D3 2000 daily. 16.Bisacodyl 10 mg daily p.r.n. 17.Lipitor 10 mg q.h.s. 18.Ecotrin 81 mg p.o. daily. 19.Tylenol 325 mg q.4h p.r.n. ALLERGIES: LISINOPRIL, PENICILLIN AND SULFA. FAMILY HISTORY: History of myocardial infarction, brain tumor in the family. SOCIAL HISTORY: Previous history of smoking. No history of alcohol. REVIEW OF SYSTEMS: Could not be taken because of change in mental status. PHYSICAL EXAM: The patient is confused, dysphagic. Blood pressure 140/75, respiration 20, temperature 97.8, pulse ox 97% on room air. HEENT: Conjunctivae normal. NECK: No jugular venous distention. No carotid bruit. Cardiovascular: s1s2 normal RESPIRATORY: Breath sounds diminished in the bases. Scattered rhonchi. No crackles. ABDOMEN: Soft, nontender. No mass palpable. LEGS: No edema, no swelling. NERVOUS SYSTEM: Higher functions as mentioned earlier. Otherwise significant weakness on the left side with some minimal contractures also present. SKIN: No ulcer, rash or bleeding. Lymphatics: No lymph nodes palpable in the neck, axillae or groin. JOINTS: No active deforming arthropathy. LABS: WBC 11.2, hemoglobin 10.5, sodium 130, potassium 4.3, glucose 144. UA noted. ASSESSMENT: 1. Change in mental status, acute metabolic encephalopathy with possibly urinary tract infection with sepsis, present on admission. 2. Henriquez catheter. 3. History of recent stroke of the left side caused by right frontal and parietal infarction. 4. History of chest pain/angina. 5. History of fibromyalgia. 6. Gastroesophageal reflux disease. 7. Hypertension. 8. Hyperlipidemia. 9. Diet-controlled diabetes history. 10.History of sinus problems. 11.History of cholecystectomy. 12.History of cataracts. 13.NO CODE, NO CPR, NO VENT. 14.Remote history of nicotine dependence. RECOMMENDATIONS AND DISCUSSION: In this 73-year-old woman who presented with multiple complex medical issues, we will monitor the patient closely, continue the current medications, management and symptomatic treatment. Continue with broad-spectrum IV antibiotics. Follow the blood and urine cultures. DVT prophylaxis. Resume the home medications. Prognosis guarded because of multiple complex medical issues. Further recommendations to follow. Discussed with the family who understands and agrees. See orders for details. MMODL / IJN: [id number] / MTDD
[2018-11-10] MEDS: METHYL SALICYLATE/MENTHOL CREAM 5 OZ TOPICAL SCH (22:02)
[2018-11-10] MEDS: ATORVASTATIN 10 MG TAB PO SCH (22:03)
[2018-11-10] MEDS: SERTRALINE 50 MG TAB PO SCH (22:03)
[2018-11-11 08:00] LABS: Basophils % (A) 0 %; Eosinophils # (A) 0.3 k/uL (0-0.7); Eosinophils % (A) 3 %; HCT 27.9 % (34.0-46.0); Lymphocytes # (A) 2.4 k/uL (1.0-4.8); Lymphocytes % (A) 26 %; MCHC 32.1 g/dL (31.0-37.0); MCV 90.4 fL (80.0-100.0); Mean Platelet Volume 7.2; Monocytes # (A) 0.6 k/uL (0-1.0); Monocytes % (A) 7 %; Neutrophils # (A) 5.6 k/uL (1.3-7.7); Neutrophils % (A) 62 %; Platelet Count 326 k/uL (150-450); RBC 3.08 m/uL (3.80-5.40); RDW 12.5 % (11.5-15.5); WBC 9.1 k/uL (3.8-10.6)
[2018-11-11 08:14] LABS: Anion Gap 6 mmol/L; Blood Urea Nitrogen 7 mg/dL (7-17); Calcium 8.6 mg/dL (8.4-10.2); Carbon Dioxide 25 mmol/L (22-30); Chloride 109 mmol/L (98-107); Glucose 101 mg/dL (74-99); Potassium 4.2 mmol/L (3.5-5.1); Sodium 140 mmol/L (137-145)
[2018-11-11] MEDS: ENOXAPARIN 40 MG/0.4 ML SYRINGE SQ SCH (09:37)
[2018-11-11] MEDS: CHOLECALCIFEROL 1,000 UNIT TAB PO SCH (09:38)
[2018-11-11] MEDS: amLODIPine 5 MG TAB PO SCH (09:38)
[2018-11-11] MEDS: ASPIRIN 81 MG PO SCH (09:38)
[2018-11-11] MEDS: CLOPIDOGREL 75 MG TAB PO SCH (09:38)
[2018-11-11] MEDS: CYANOCOBALAMIN 500 MCG TAB PO SCH (09:38)
[2018-11-11] MEDS: LOSARTAN 50 MG TAB PO SCH (09:48)
[2018-11-11] MEDS: METHYL SALICYLATE/MENTHOL CREAM 5 OZ TOPICAL SCH ×2 (09:48→21:56)
[2018-11-11] MEDS: PANTOPRAZOLE 40 MG TABLET PO SCH ×2 (09:48→10:34)
[2018-11-11] MEDS: METOPROLOL SUCCINATE (ER) 25 MG TAB.ER.24H PO SCH ×2 (09:48→11:52)
[2018-11-11] MEDS: PANTOPRAZOLE SODIUM 40 MG GRANULE PKT PO SCH (10:33)
[2018-11-11] MEDS ORDERED: hydrALAZINE HCL 20 MG/ML 1 ML VIAL IVP PRN (11:06)
[2018-11-11] MEDS ORDERED: cloNIDine 0.2 MG/24HR PATCH TRANSDERM SCH (12:00)
[2018-11-11] MEDS: MULTIVITAMINS, THERA 1 EACH TAB PO SCH (13:23)
[2018-11-11] MEDS: FOLIC ACID 1 MG TAB PO SCH (13:23)
--- NOTE | 2018-11-11 21:02 | PN ---
PROGRESS NOTE DATE OF SERVICE: 11/11/2018 This 73-year-old woman who was admitted with change in mental status, is being closely monitored. Patient is on IV antibiotics at this time. The cultures are negative so far. The patient is also to resume IV fluids. The patient has urinary incontinence. No postvoid residual was noted at this time. CT scan showed recent infarcts. PAST MEDICAL HISTORY: Reviewed. REVIEW OF SYSTEMS: CARDIOVASCULAR: No angina. RESPIRATORY: No cough. GI mentioned earlier. no dysuria. Central nervous system: No numbness. Weakness of the left side present. MEDICATIONS: Current medications reviewed include: 1. Tylenol 320 mg daily. 2. Norvasc 5 mg p.o. daily. 3. Aspirin 81 mg daily. 4. Lipitor 10 mg q.h.s. 5. Dulcolax 10 mg p.o. daily. 6. Rocephin 1 g daily. 7. Vitamin D3 2000 daily. 8. Plavix 75 mg. 9. Vitamin B12 1000 mcg. 10.Lovenox 40 mg subcu daily. 11.Folic acid 1 mg. 12.Apresoline 10 mg IV q.8. 13.Cozaar 50 mg p.o. daily. 14.Milk of Magnesia 2.4 g daily. 15.Multivitamins daily. 16.Lopressor 25 mg b.i.d. 17.Nitrostat 0.4 sublingual. 18.Protonix 40 mg daily. 19.Zoloft 50 mg q.h.s. PHYSICAL EXAMINATION: Patient is alert, oriented x3, pulse 63, blood pressure 111/65, respirations 18, temperature 97.8, pulse ox 97% on room air. HEENT: Conjunctivae normal. Oral mucosa moist. Neck is no jugular venous distention. No carotid bruit. No lymph node enlargement. Cardiovascular systems: S1, S2 muffled. Respiratory: Breath sounds diminished in the bases. A few scattered rhonchi. No crackles. ABDOMEN: Soft, nontender. Legs are no edema, no swelling. Central nervous system: Left-sided weakness. LAB STUDIES: WBC 9.1, hemoglobin 9, sodium 140, potassium 4.2. ASSESSMENT: 1. Change in mental status acute metabolic encephalopathy with possibly urinary tract infection with sepsis present on admission. 2. History of recent stroke on the left side caused by right frontal and parietal infarction. 3. History of chest pain, angina. 4. History of fibromyalgia. 5. Gastroesophageal reflux disease. 6. Hypertension. 7. Hyperlipidemia. 8. Diet-controlled diabetes. 9. History of sinus problems. 10.History of cholecystectomy. 11.History of cataracts. 12.Remote history of nicotine dependence. 13.NO CODE, NO CPR AND NO VENT. RECOMMENDATIONS AND DISCUSSION: Recommend to continue current medications, continue monitoring, management and symptomatic treatment. Otherwise, at this time, I recommend continue with broad- spectrum IV antibiotics. DVT prophylaxis. Cultures. Guarded prognosis. Further recommendations to follow. See orders for details. MMODL / IJN: [id number] /
[2018-11-11] MEDS: SERTRALINE 50 MG TAB PO SCH (21:57)
[2018-11-11] MEDS: METOPROLOL TARTRATE 25 MG TAB PO SCH (21:57)
[2018-11-11] MEDS: ATORVASTATIN 10 MG TAB PO SCH (21:57)
[2018-11-12] MEDS: amLODIPine 5 MG TAB PO SCH (08:30)
[2018-11-12] MEDS: CLOPIDOGREL 75 MG TAB PO SCH (08:30)
[2018-11-12] MEDS: LOSARTAN 50 MG TAB PO SCH (08:31)
[2018-11-12] MEDS: CHOLECALCIFEROL 1,000 UNIT TAB PO SCH (08:31)
[2018-11-12] MEDS: CYANOCOBALAMIN 500 MCG TAB PO SCH (08:31)
[2018-11-12] MEDS: METOPROLOL TARTRATE 25 MG TAB PO SCH ×2 (08:31→22:41)
[2018-11-12] MEDS: ASPIRIN 81 MG PO SCH (08:31)
[2018-11-12] MEDS: ENOXAPARIN 40 MG/0.4 ML SYRINGE SQ SCH (08:32)
[2018-11-12] MEDS: METHYL SALICYLATE/MENTHOL CREAM 5 OZ TOPICAL SCH ×2 (08:40→22:40)
[2018-11-12 09:18] LABS: Basophils % (A) 0 %; Eosinophils # (A) 0.2 k/uL (0-0.7); Eosinophils % (A) 3 %; HCT 28.8 % (34.0-46.0); HGB 9.2 gm/dL (11.4-16.0); Lymphocytes # (A) 2.5 k/uL (1.0-4.8); Lymphocytes % (A) 28 %; MCH 28.7 pg (25.0-35.0); MCV 89.9 fL (80.0-100.0); Mean Platelet Volume 6.8; Monocytes # (A) 0.6 k/uL (0-1.0); Monocytes % (A) 7 %; Neutrophils # (A) 5.4 k/uL (1.3-7.7); Neutrophils % (A) 61 %; Platelet Count 359 k/uL (150-450); RDW 12.5 % (11.5-15.5); WBC 8.8 k/uL (3.8-10.6)
[2018-11-12 09:32] LABS: Anion Gap 8 mmol/L; Blood Urea Nitrogen 7 mg/dL (7-17); Carbon Dioxide 26 mmol/L (22-30); Chloride 105 mmol/L (98-107); Glucose 105 mg/dL (74-99); Potassium 4.4 mmol/L (3.5-5.1); Sodium 139 mmol/L (137-145)
[2018-11-12] MEDS: PANTOPRAZOLE SODIUM 40 MG GRANULE PKT PO SCH (10:29)
[2018-11-12] MEDS: MULTIVITAMINS, THERA 1 EACH TAB PO SCH (12:07)
[2018-11-12] MEDS: FOLIC ACID 1 MG TAB PO SCH (12:08)
[2018-11-12] MEDS ORDERED: IPRATROPIUM-ALBUTEROL 3 ML NEB INHALATION PRN (15:05)
--- NOTE | 2018-11-12 20:55 | PN ---
PROGRESS NOTE DATE OF SERVICE: 11/12/2018. HISTORY: A 73-year-old woman who was admitted with change in mental status and acute metabolic encephalopathy, also had possible UTI with sepsis. Patient is being closely monitored. No chest pain. No palpitations. No fever. EXAM: Alert, oriented x3. VITAL SIGNS: Pulse 56, blood pressure 152/70, respirations 16, temperature 97.4, pulse ox 98% on room air. HEENT: Conjunctivae normal. NECK: No JVD. CARDIOVASCULAR: S1 and S2 muffled. LUNGS: Breath sounds diminished at the bases. Few scattered rhonchi and crackles. ABDOMEN: Soft, nontender. EXTREMITIES: Legs no swelling. MANAGER OF TAX: No focal deficits. LABS: WBC 8.8, hemoglobin 9.2. ASSESSMENT: 1. Change in mental status, acute metabolic encephalopathy with possibly urinary tract infection with sepsis present on admission. 2. History of recent stroke on the left side caused by right frontal and parietal infarction. 3. History of chest pain and angina. 4. History of fibromyalgia. 5. Gastroesophageal reflux disease. 6. Hypertension. 7. Hyperlipidemia. 8. Diet-controlled diabetes mellitus type 2. 9. History of sinus problems. 10.History of cholecystectomy. 11.History of cataracts. 12.Remote history of nicotine dependence. 13.NO CODE, NO CPR, NO VENT. RECOMMENDATIONS AND DISCUSSION: Recommend to continue current management and symptomatic treatment. Otherwise at this time I recommend continue with antibiotics. Follow the cultures. Increase ambulation. Guarded prognosis because of multiple complex medical issues. Further recommendations to follow. MMODL / IJN: [id number] /
[2018-11-12] MEDS: ATORVASTATIN 10 MG TAB PO SCH (22:41)
[2018-11-12] MEDS: SERTRALINE 50 MG TAB PO SCH (22:41)
[2018-11-13] MEDS: METOPROLOL TARTRATE 25 MG TAB PO SCH ×2 (08:35→21:53)
[2018-11-13] MEDS: amLODIPine 5 MG TAB PO SCH (08:35)
[2018-11-13] MEDS: CYANOCOBALAMIN 500 MCG TAB PO SCH (08:35)
[2018-11-13] MEDS: CLOPIDOGREL 75 MG TAB PO SCH (08:35)
[2018-11-13] MEDS: LOSARTAN 50 MG TAB PO SCH (08:36)
[2018-11-13] MEDS: ASPIRIN 81 MG PO SCH (08:36)
[2018-11-13] MEDS: CHOLECALCIFEROL 1,000 UNIT TAB PO SCH (08:38)
[2018-11-13] MEDS: PANTOPRAZOLE SODIUM 40 MG GRANULE PKT PO SCH (08:39)
[2018-11-13] MEDS: ENOXAPARIN 40 MG/0.4 ML SYRINGE SQ SCH (08:42)
[2018-11-13] MEDS: METHYL SALICYLATE/MENTHOL CREAM 5 OZ TOPICAL SCH ×2 (08:42→21:53)
[2018-11-13 11:19] LABS: Anion Gap 9 mmol/L; Blood Urea Nitrogen 13 mg/dL (7-17); Calcium 9.1 mg/dL (8.4-10.2); Carbon Dioxide 27 mmol/L (22-30); Chloride 104 mmol/L (98-107); Glucose 134 mg/dL (74-99); Potassium 4.3 mmol/L (3.5-5.1); Sodium 140 mmol/L (137-145)
[2018-11-13 11:26] LABS: Basophils % (A) 0 %; Eosinophils # (A) 0.2 k/uL (0-0.7); Eosinophils % (A) 3 %; HCT 30.2 % (34.0-46.0); HGB 9.5 gm/dL (11.4-16.0); Lymphocytes # (A) 2.1 k/uL (1.0-4.8); Lymphocytes % (A) 22 %; MCH 28.1 pg (25.0-35.0); MCHC 31.6 g/dL (31.0-37.0); MCV 88.9 fL (80.0-100.0); Monocytes # (A) 0.5 k/uL (0-1.0); Monocytes % (A) 5 %; Neutrophils # (A) 6.6 k/uL (1.3-7.7); Neutrophils % (A) 69 %; Platelet Count 415 k/uL (150-450); RDW 12.6 % (11.5-15.5); WBC 9.5 k/uL (3.8-10.6)
[2018-11-13] MEDS: FOLIC ACID 1 MG TAB PO SCH (12:17)
[2018-11-13] MEDS: MULTIVITAMINS, THERA 1 EACH TAB PO SCH (12:17)
--- NOTE | 2018-11-13 14:32 | PN ---
PROGRESS NOTE DATE OF SERVICE: 11/13/2018 This is a 73-year-old woman who was admitted with change in mental status, metabolic encephalopathy, is improving significantly. No chest pain. No palpitations. No fever. PHYSICAL EXAM: Alert and oriented x3, pulse 66, blood pressure 140/80, respiration 17, temperature 99.4, pulse ox 94% on room air. HEENT: Conjunctivae normal. NECK: No jugular venous distension. CARDIOVASCULAR SYSTEM: S1, S1, muffled. RESPIRATORY SYSTEM: Breath sounds diminished at the bases, a few rhonchi, no crackles. ABDOMEN: Soft, nontender. NERVOUS SYSTEM: Left hemiplegia present. LABS: WBC is 9.1, hemoglobin is 10.5, sodium 134. Cultures are negative so far. ASSESSMENT: 1. Change in mental status, acute metabolic encephalopathy with possibly urinary tract infection with sepsis present on admission. 2. History of recent stroke on the left side, possible right frontal and parietal infarction. 3. History of chest pain, angina. 4. History of fibromyalgia. 5. Gastroesophageal reflux disease. 6. Hypertension. 7. Hyperlipidemia. 8. Diet-controlled diabetes mellitus type 2. 9. History of sinus problems. 10.History of cholecystectomy. 11.History of cataracts. 12.Remote history of nicotine dependence. 13.NO CODE, NO CARDIOPULMONARY RESUSCITATION, NO VENTILATOR. RECOMMENDATIONS: I recommend to continue current management and symptomatic treatment. Continue with antibiotics. Increase ambulation. Otherwise, closely monitor. Follow the cultures. Guarded prognosis. Further recommendations to follow. MMODL / IJN: [id number] /
[2018-11-13] MEDS: ATORVASTATIN 10 MG TAB PO SCH (21:54)
[2018-11-13] MEDS: SERTRALINE 50 MG TAB PO SCH (21:54)
[2018-11-14 03:48] VITALS: RESP 18
[2018-11-14] MEDS: ENOXAPARIN 40 MG/0.4 ML SYRINGE SQ SCH (09:31)
[2018-11-14] MEDS: MULTIVITAMINS, THERA 1 EACH TAB PO SCH (09:32)
[2018-11-14] MEDS: CLOPIDOGREL 75 MG TAB PO SCH (09:32)
[2018-11-14] MEDS: METOPROLOL TARTRATE 25 MG TAB PO SCH (09:33)
[2018-11-14] MEDS: CYANOCOBALAMIN 500 MCG TAB PO SCH (09:33)
[2018-11-14] MEDS: LOSARTAN 50 MG TAB PO SCH (09:33)
[2018-11-14] MEDS: FOLIC ACID 1 MG TAB PO SCH (09:33)
[2018-11-14] MEDS: CHOLECALCIFEROL 1,000 UNIT TAB PO SCH (09:34)
[2018-11-14] MEDS: amLODIPine 5 MG TAB PO SCH (09:34)
[2018-11-14] MEDS: ASPIRIN 81 MG PO SCH (09:34)
[2018-11-14] MEDS: PANTOPRAZOLE SODIUM 40 MG GRANULE PKT PO SCH (09:35)
[2018-11-14] MEDS: METHYL SALICYLATE/MENTHOL CREAM 5 OZ TOPICAL SCH (09:35)
[2018-11-14 10:25] LABS: Basophils % (A) 0 %; Eosinophils # (A) 0.3 k/uL (0-0.7); Eosinophils % (A) 3 %; HCT 31.9 % (34.0-46.0); HGB 10.4 gm/dL (11.4-16.0); Lymphocytes # (A) 2.4 k/uL (1.0-4.8); Lymphocytes % (A) 22 %; MCH 29.4 pg (25.0-35.0); MCHC 32.5 g/dL (31.0-37.0); MCV 90.3 fL (80.0-100.0); Mean Platelet Volume 7.1; Monocytes # (A) 0.7 k/uL (0-1.0); Monocytes % (A) 6 %; Neutrophils # (A) 7.4 k/uL (1.3-7.7); Neutrophils % (A) 68 %; Platelet Count 380 k/uL (150-450); RBC 3.54 m/uL (3.80-5.40); RDW 12.8 % (11.5-15.5); WBC 10.9 k/uL (3.8-10.6)
[2018-11-14 10:37] LABS: Anion Gap 10 mmol/L; Blood Urea Nitrogen 11 mg/dL (7-17); Calcium 9.2 mg/dL (8.4-10.2); Carbon Dioxide 24 mmol/L (22-30); Chloride 105 mmol/L (98-107); Glucose 206 mg/dL (74-99); Sodium 139 mmol/L (137-145)
[2018-11-14 10:38] LABS: Potassium 4.8 mmol/L (3.5-5.1)
[2018-11-14 12:11] VITALS: BP 139/67; PULSE 65; TEMP 98.6
--- NOTE | 2018-11-14 13:05 | P.DS ---
Providers Date of admission: 11/13/18 08:54 Expected date of discharge: 11/14/18 Attending physician: Jenna Salazar Primary care physician: Samanta Samuel Hospital Course: Final DIagnoses: -Change in mental status, acute metabolic encephalopathy with possible UTI with sepsis, present on admission -Recent stroke on the left side) right frontal and parietal infarction -History of chest pain, angina -History of fibromyalgia -Gastroesophageal reflux disease -Hypertension -Hyperlipidemia -Diet controlled diabetes mellitus type 2 -Remote history of nicotine dependence -No code, no CPR, no ventilator Hospital course: This is a 73-year-old female admitted with change in mental status, metabolic encephalopathy. Maintained on IV antibiotics. Significant clinical improvement. Patient is being discharged to subacute rehab in a stable condition with guarded prognosis. The impression and plan of care has been dictated as directed. : I performed a history and examination of this patient, discussed the same with the dictator. I agree with the dictator's note ,documented as a scribe. Any additional findings or plans will be noted. Time taken: 35 minutes Patient Condition at Discharge: Stable Plan - Discharge Summary Discharge Rx Participant: No New Discharge Prescriptions: New Metoprolol Tartrate [Lopressor] 25 mg PO BID #60 tab Thiamine [Vitamin B-1] 100 mg PO DAILY #30 tablet Cefuroxime Axetil [Ceftin] 500 mg PO BID 3 Days #6 tab Continue Nitroglycerin Sl Tabs [Nitrostat] 0.4 mg SUBLINGUAL Q5M PRN PRN Reason: Chest Pain Multivitamins, Thera [Multivitamin (formulary)] 1 tab PO DAILY Aspirin EC [Ecotrin Low Dose] 81 mg PO DAILY Na Phos,M-B/Na Phos,Di-Ba [Fleet Adult] 133 ml RECTAL ONCE PRN PRN Reason: Constipation Bisacodyl 10 mg RECTAL DAILY PRN PRN Reason: Constipation Acetaminophen Suppository [Tylenol Suppository] 325 mg RECTAL Q4H PRN PRN Reason: Pain Menthol [Biofreeze] 1 applic TOPICAL BID Lactose-Reduced Food [Ensure Plus] 1 can PO TID Sertraline [Zoloft] 50 mg PO HS Lansoprazole [Prevacid] 30 mg PO DAILY Cholecalciferol (Vitamin D3) [Vitamin D3] 2,000 unit PO DAILY Losartan [Cozaar] 50 mg PO DAILY Atorvastatin [Lipitor] 10 mg PO HS Folic Acid 1 mg PO DAILY Cyanocobalamin (Vitamin B-12) [Vitamin B-12] 1,000 mcg PO DAILY Clopidogrel [Plavix] 75 mg PO DAILY amLODIPine BESYLATE 5 mg PO DAILY Magnesium Hydroxide [Milk of Magnesia] 2,400 mg PO DAILY PRN PRN Reason: Constipation Discontinued Metoprolol Succinate (ER) [Toprol Xl] 25 mg PO DAILY Discharge Medication List Multivitamins, Thera [Multivitamin (formulary)] 1 tab PO DAILY 04/13/16 [History ] Nitroglycerin Sl Tabs [Nitrostat] 0.4 mg SUBLINGUAL Q5M PRN 04/13/16 [History] Aspirin EC [Ecotrin Low Dose] 81 mg PO DAILY 12/09/17 [History] Acetaminophen Suppository [Tylenol Suppository] 325 mg RECTAL Q4H PRN 11/09/18 [ History] Atorvastatin [Lipitor] 10 mg PO HS 11/09/18 [History] Bisacodyl 10 mg RECTAL DAILY PRN 11/09/18 [History] Cholecalciferol (Vitamin D3) [Vitamin D3] 2,000 unit PO DAILY 11/09/18 [History] Clopidogrel [Plavix] 75 mg PO DAILY 11/09/18 [History] Cyanocobalamin (Vitamin B-12) [Vitamin B-12] 1,000 mcg PO DAILY 11/09/18 [ History] Folic Acid 1 mg PO DAILY 11/09/18 [History] Lactose-Reduced Food [Ensure Plus] 1 can PO TID 11/09/18 [History] Lansoprazole [Prevacid] 30 mg PO DAILY 11/09/18 [History] Losartan [Cozaar] 50 mg PO DAILY 11/09/18 [History] Magnesium Hydroxide [Milk of Magnesia] 2,400 mg PO DAILY PRN 11/09/18 [History] Menthol [Biofreeze] 1 applic TOPICAL BID 11/09/18 [History] Na Phos,M-B/Na Phos,Di-Ba [Fleet Adult] 133 ml RECTAL ONCE PRN 11/09/18 [History ] Sertraline [Zoloft] 50 mg PO HS 11/09/18 [History] amLODIPine BESYLATE 5 mg PO DAILY 11/09/18 [History] Cefuroxime Axetil [Ceftin] 500 mg PO BID 3 Days #6 tab 11/13/18 [Rx] Metoprolol Tartrate [Lopressor] 25 mg PO BID #60 tab 11/13/18 [Rx] Thiamine [Vitamin B-1] 100 mg PO DAILY #30 tablet 11/13/18 [Rx] Follow up Appointment(s)/Referral(s): Samanta Samuel MD [Primary Care Provider] - 3 Days Ambulatory/Diagnostic Orders: Complete Blood Count w/diff [LAB.AMB] Time Frame: 3 Days, Location: None Selected Activity/Diet/Wound Care/Special Instructions: Alli Final urine culture results to PCP Diet: Dysphagia as per dietitian recommendations Aspiration precautions Activity: Limited until follow up Discharge Disposition: TRANSFER TO SNF/ECF
== END 2018-11-14 17:03 | DRG 871 ==
LOC: EC 19:39 → 4SSUR 23:21 → OBSVTOIN 11-13 08:54
PROVIDERS: ADMIT Hospitalist; ATTEND Hospitalist
DX: A41.9 Sepsis, unspecified organism (principal); G93.41 Metabolic encephalopathy; N39.0 Urinary tract infection, site not specified; I69.354 Hemiplegia and hemiparesis following cerebral infarction affecting left non-dominant side; E11.9 Type 2 diabetes mellitus without complications; E78.5 Hyperlipidemia, unspecified; E86.0 Dehydration; I10 Essential (primary) hypertension; K21.9 Gastro-esophageal reflux disease without esophagitis; M79.7 Fibromyalgia; R32 Unspecified urinary incontinence; Z79.02 Long term (current) use of antithrombotics/antiplatelets; Z82.49 Family history of ischemic heart disease and other diseases of the circulatory system; Z87.891 Personal history of nicotine dependence; Z90.49 Acquired absence of other specified parts of digestive tract; Z90.710 Acquired absence of both cervix and uterus; Z98.84 Bariatric surgery status; Z79.82 Long term (current) use of aspirin; Z79.899 Other long term (current) drug therapy; Z88.0 Allergy status to penicillin; Z88.2 Allergy status to sulfonamides; Z88.8 Allergy status to other drugs, medicaments and biological substances; Z86.14 Personal history of Methicillin resistant Staphylococcus aureus infection; Z98.42 Cataract extraction status, left eye; Z98.41 Cataract extraction status, right eye; Z96.1 Presence of intraocular lens
CPT/HCPCS: 36415; 70450; 71046; 80048; 80053; 81001; 82550; 82553; 83605; 83735; 84100; 84484; 85025; 85610; 85730; 87040; 87086; 87502; 93005; 96361; 96365; 99285

== ENCOUNTER 2018-11-16 15:05 | Inpatient (IN) | payer MEDICARE, BC ==
[2018-11-16] MEDS ORDERED: SODIUM CHLORIDE 0.9% 500 ML 500 ML IV STA (15:32)
--- NOTE | 2018-11-16 15:37 | ED ---
General Adult HPI - General Chief complaint: Weakness Stated complaint: RT SIDED WEAKNESS Source: patient, EMS Mode of arrival: EMS Limitations: no limitations - History of Present Illness Initial comments: Dictation was produced using [employer] dictation software. please excuse any grammatical, word or spelling errors. Chief Complaint: 73 year old female transferred by EMS from [facility] for new onset right-sided weakness. History of Present Illness: 33-year-old female presents with new- onset right-sided weakness. Patient is currently at [facility]. She shattered here by EMS. Patient is currently at [facility] for stroke rehab. Patient suffered a stroke approximately 2 months ago causing her to have left-sided deficits. According to EMS staff reports that she had signs of weakness to the right side. Patient is a poor historian. According to EMS patient's symptoms started approximately 2 PM. - Related Data Home Medications Medication Instructions Recorded Confirmed Multivitamins, Thera [Multivitamin 1 tab PO DAILY@1700 04/13/16 11/16/18 (formulary)] Nitroglycerin Sl Tabs [Nitrostat] 0.4 mg SUBLINGUAL Q5M PRN 04/13/16 11/16/18 Aspirin EC [Ecotrin Low Dose] 81 mg PO DAILY@1700 12/09/17 11/16/18 Acetaminophen Suppository [Tylenol 325 mg RECTAL Q4H PRN 11/09/18 11/16/18 Suppository] Atorvastatin [Lipitor] 10 mg PO HS 11/09/18 11/16/18 Bisacodyl 10 mg RECTAL DAILY PRN 11/09/18 11/16/18 Cholecalciferol (Vitamin D3) 2,000 unit PO DAILY@1700 11/09/18 11/16/18 [Vitamin D3] Clopidogrel [Plavix] 75 mg PO DAILY 11/09/18 11/16/18 Cyanocobalamin (Vitamin B-12) 1,000 mcg PO DAILY@1700 11/09/18 11/16/18 [Vitamin B-12] Folic Acid 1 mg PO DAILY@1700 11/09/18 11/16/18 Lactose-Reduced Food [Ensure Plus] 1 can PO TID 11/09/18 11/16/18 Lansoprazole [Prevacid] 30 mg PO DAILY 11/09/18 11/16/18 Losartan [Cozaar] 50 mg PO DAILY 11/09/18 11/16/18 Magnesium Hydroxide [Milk of 2,400 mg PO DAILY PRN 11/09/18 11/16/18 Magnesia] Menthol [Biofreeze] 1 applic TOPICAL BID 11/09/18 11/16/18 Na Phos,M-B/Na Phos,Di-Ba [Fleet 133 ml RECTAL ONCE PRN 11/09/18 11/16/18 Adult] Sertraline [Zoloft] 50 mg PO HS@2100 11/09/18 11/16/18 amLODIPine BESYLATE 5 mg PO DAILY 11/09/18 11/16/18 Thiamine [Vitamin B-1] 100 mg PO DAILY@1700 11/16/18 11/16/18 Previous Rx's Medication Instructions Recorded Cefuroxime Axetil [Ceftin] 500 mg PO BID 3 Days #6 tab 11/13/18 Metoprolol Tartrate [Lopressor] 25 mg PO BID #60 tab 11/13/18 Allergies Allergy/AdvReac Type Severity Reaction Status Date / Time lisinopril Allergy Unknown Verified 11/16/18 16:25 Penicillins Allergy Rash/Hives Verified 11/16/18 16:25 Sulfa (Sulfonamide Allergy Rash/Hives Verified 11/16/18 16:25 Antibiotics) Review of Systems ROS Statement: Those systems with pertinent positive or pertinent negative responses have been documented in the HPI. ROS Other: All systems not noted in ROS Statement are negative. Past Medical History Past Medical History: Chest Pain / Angina, CVA/TIA, Fibromyalgia, GERD/Reflux, Hyperlipidemia, Hypertension Additional Past Medical History / Comment(s): DIET CONTROLLED DM-NO MEDS AND NOT CURRENTLY CHECKING BS, ANEMIA,MURMUR,STROKE 2000-LT SIDED WEAKNESS, TIA'S, SINUS PROBLEMS,VARICOSE VEINS, LEAKAGE OF URINE WEARS A PAD,ARTHRITIS,FR RT PATELLA."STATED THEY FOUND MRSA RT KNEE 2012(WAS UNABLE TO TYPE IN UNDER THE MDROS SCREEN) History of Any Multi-Drug Resistant Organisms: MRSA Date of last positivie culture/infection: . MDRO Source:: . Past Surgical History: Back Surgery, Cholecystectomy, Heart Catheterization, Hysterectomy, Tonsillectomy Additional Past Surgical History / Comment(s): DEJAN CATARACT LENSES,COLONOSCOPY, GASTRIC BYPASS,ABDOMINALPLASTY,HERNIA REPAIR,FIDEL CARPAL TUNNEL,RT PATELLA REPAIRED. Past Anesthesia/Blood Transfusion Reactions: No Reported Reaction Past Psychological History: No Psychological Hx Reported Smoking Status: Former smoker Past Alcohol Use History: None Reported Past Drug Use History: None Reported - Past Family History Mother Additional Family Medical History / Comment(s): BRAIN TUMOR Father Family Medical History: Myocardial Infarction ([place]) General Exam - General Exam Comments Initial Comments: PHYSICAL EXAM: General Impression: Alert and oriented x3, not in acute distress HEENT: Normocephalic atraumatic, extra-ocular movements intact, pupils equal and reactive to light bilaterally, mucous membranes moist. Cardiovascular: Heart regular rate and rhythm, S1&S2 audible, no murmurs, rubs or gallops Chest: Lungs clear to auscultation bilaterally, no rhonchi, no wheeze, no rales Abdomen: Bowel sounds present, abdomen soft, non-tender, non-distended, no organomegaly Musculoskeletal: Pulses present and equal in all extremities, no peripheral edema Motor: Power 5/5 bilaterally, no focal deficits noted Neurological: CN II-XII grossly intact, left sided weakness. Right-sided upper and lower extremity drift Skin: Intact with no visualized rashes Psych: Normal affect and mood Limitations: no limitations Course Vital Signs 11/16/18 11/16/18 11/16/18 15:10 15:15 15:30 Temperature 99 F Pulse Rate 53 L 56 L 57 L Respiratory 18 18 18 Rate Blood Pressure 141/69 132/85 146/96 O2 Sat by Pulse 100 96 96 Oximetry 11/16/18 11/16/18 11/16/18 15:43 15:45 16:00 Temperature Pulse Rate 69 64 64 Respiratory 18 18 18 Rate Blood Pressure 138/67 142/64 137/71 O2 Sat by Pulse 97 100 Oximetry 11/16/18 11/16/18 11/16/18 16:31 17:00 18:00 Temperature Pulse Rate 58 L 62 58 L Respiratory 18 18 18 Rate Blood Pressure 147/72 145/77 143/72 O2 Sat by Pulse 100 99 99 Oximetry Medical Decision Making - Medical Decision Making ED course: 73-year-old female past medical history of CVA transferred via EMS from [facility] for new onset right-sided deficits were some for stroke. Vital signs upon arrival are within acceptable limits. Patient has residual left-sided deficits. NIH is 4. Extremities paged.Lipitor evaluation obtained. Mild leukocytosis of 10.9. Coag panel unremarkable. Metabolic panel is normal. Cardiac enzymes negative. Chest x-ray shows no acute processes. Computed tomography scan does not show an acute processes. CT angiogram of the head and neck was obtained showing 50% reduction the left internal carotid artery. Patient is invited by stroke neurologist on stroke robot. Patient notes TPA candidate at this time. Patient given aspirin. Patient be admitted. Neurology on consult. MRI ordered. EKG interpretation: Ventricular rate 65, normal sinus rhythm, KS interval 150, care is 80, QTc 440. No KS prolongation, no QTC prolongation, no ST or T-wave changes noted. . Overall, this EKG is unremarkable - Lab Data Result diagrams: 11/16/18 15:30 11/16/18 15:30 Lab Results 11/16/18 11/16/18 11/16/18 Range/Units 15:30 15:30 15:30 WBC 10.9 H (3.8-10.6) k/uL RBC 3.60 L (3.80-5.40) m/uL Hgb 10.4 L (11.4-16.0) gm/dL Hct 32.0 L (34.0-46.0) % MCV 88.9 (80.0-100.0) fL MCH 28.9 (25.0-35.0) pg MCHC 32.6 (31.0-37.0) g/dL RDW 12.9 (11.5-15.5) % Plt Count 390 (150-450) k/uL Neutrophils % 64 % Lymphocytes % 27 % Monocytes % 6 % Eosinophils % 1 % Basophils % 0 % Neutrophils # 6.9 (1.3-7.7) k/uL Lymphocytes # 2.9 (1.0-4.8) k/uL Monocytes # 0.7 (0-1.0) k/uL Eosinophils # 0.2 (0-0.7) k/uL Basophils # 0.1 (0-0.2) k/uL PT (9.0-12.0) sec INR (<1.2) APTT (22.0-30.0) sec Sodium 138 (137-145) mmol/L Potassium 4.4 (3.5-5.1) mmol/L Chloride 103 (98-107) mmol/L Carbon Dioxide 26 (22-30) mmol/L Anion Gap 9 mmol/L BUN 18 H (7-17) mg/dL Creatinine 0.58 (0.52-1.04) mg/dL Est GFR (CKD-EPI)AfAm >90 (>60 ml/min/1.73 sqM) Est GFR (CKD-EPI)NonAf >90 (>60 ml/min/1.73 sqM) Glucose 131 H (74-99) mg/dL POC Glucose (mg/dL) (75-99) mg/dL POC Glu Road Gang Supervisor ID Calcium 9.2 (8.4-10.2) mg/dL Total Bilirubin 0.2 (0.2-1.3) mg/dL AST 24 (14-36) U/L ALT 24 (9-52) U/L Alkaline Phosphatase 80 (38-126) U/L Total Creatine Kinase <20 L (30-135) U/L CK-MB (CK-2) <0.2 (0.0-2.4) ng/mL CK-MB (CK-2) Rel Index Troponin I <0.012 (0.000-0.034) ng/mL Total Protein 6.5 (6.3-8.2) g/dL Albumin 3.2 L (3.5-5.0) g/dL 11/16/18 11/16/18 Range/Units 15:30 16:08 WBC (3.8-10.6) k/uL RBC (3.80-5.40) m/uL Hgb (11.4-16.0) gm/dL Hct (34.0-46.0) % MCV (80.0-100.0) fL MCH (25.0-35.0) pg MCHC (31.0-37.0) g/dL RDW (11.5-15.5) % Plt Count (150-450) k/uL Neutrophils % % Lymphocytes % % Monocytes % % Eosinophils % % Basophils % % Neutrophils # (1.3-7.7) k/uL Lymphocytes # (1.0-4.8) k/uL Monocytes # (0-1.0) k/uL Eosinophils # (0-0.7) k/uL Basophils # (0-0.2) k/uL PT 9.8 (9.0-12.0) sec INR 0.9 (<1.2) APTT 25.6 (22.0-30.0) sec Sodium (137-145) mmol/L Potassium (3.5-5.1) mmol/L Chloride (98-107) mmol/L Carbon Dioxide (22-30) mmol/L Anion Gap mmol/L BUN (7-17) mg/dL Creatinine (0.52-1.04) mg/dL Est GFR (CKD-EPI)AfAm (>60 ml/min/1.73 sqM) Est GFR (CKD-EPI)NonAf (>60 ml/min/1.73 sqM) Glucose (74-99) mg/dL POC Glucose (mg/dL) 110 H (75-99) mg/dL POC Glu Road Gang Supervisor CIELO Anna Ordaz Calcium (8.4-10.2) mg/dL Total Bilirubin (0.2-1.3) mg/dL AST (14-36) U/L ALT (9-52) U/L Alkaline Phosphatase (38-126) U/L Total Creatine Kinase (30-135) U/L CK-MB (CK-2) (0.0-2.4) ng/mL CK-MB (CK-2) Rel Index Troponin I (0.000-0.034) ng/mL Total Protein (6.3-8.2) g/dL Albumin (3.5-5.0) g/dL Disposition Clinical Impression: CVA (cerebral vascular accident) Disposition: ADMITTED IP TO THIS [facility] Condition: Fair Referrals: Samanta Samuel MD [Primary Care Provider] - 1-2 days Decision Time: 18:25
[2018-11-16 15:52] LABS: Basophils # (A) 0.1 k/uL (0-0.2); Basophils % (A) 0 %; Eosinophils # (A) 0.2 k/uL (0-0.7); Eosinophils % (A) 1 %; HGB 10.4 gm/dL (11.4-16.0); Lymphocytes # (A) 2.9 k/uL (1.0-4.8); Lymphocytes % (A) 27 %; MCH 28.9 pg (25.0-35.0); MCHC 32.6 g/dL (31.0-37.0); MCV 88.9 fL (80.0-100.0); Mean Platelet Volume 6.8; Monocytes # (A) 0.7 k/uL (0-1.0); Monocytes % (A) 6 %; Neutrophils # (A) 6.9 k/uL (1.3-7.7); Neutrophils % (A) 64 %; Platelet Count 390 k/uL (150-450); RDW 12.9 % (11.5-15.5); WBC 10.9 k/uL (3.8-10.6)
[2018-11-16 16:01] LABS: INR 0.9 (<1.2); Partial Thromboplastin Time 25.6 sec (22.0-30.0); Prothrombin Time 9.8 sec (9.0-12.0)
--- NOTE | 2018-11-16 16:02 | CT ---
EXAMINATION TYPE: CT brain wo con for TPA DATE OF EXAM: 11/16/2018 COMPARISON: 11/09/2018 HISTORY: Stroke 2 months ago with left sided weakness. Patient started having right sided weakness an d not responding appropriately at [address] DLP: [address] of the brain was performed. The ventricles, basal cisterns and sulci overlying the cerebral convexities demonstrate mild enlargem ent. Remote insult right MCA territory as well as left frontal lobe. There is no evidence for intracranial hemorrhage or sulcal effacement. There is decreased attenuation about the periventricular white matter and deep white matter of both c erebral hemispheres, compatible with chronic small vessel ischemia. Differential diagnosis does inclu de demyelination. No mass effects are seen.No midline shift. Osseous calvarium is intact. If symptoms persist consider MRI. IMPRESSION: 1. Age related atrophic and chronic small vessel ischemic change without acute intracranial process s een at this time.
[2018-11-16 16:12] LABS: Creatine Kinase <20 U/L (30-135)
--- NOTE | 2018-11-16 16:12 | CT ---
EXAMINATION TYPE: CT angio head neck DATE OF EXAM: 11/16/2018 COMPARISON: HISTORY: Stroke 2 months ago with left sided weakness. Patient started having right sided weakness an d not responding appropriately at [address] DLP: 214.7 mGycm CONTRAST: Performed with IV Contrast, patient injected with 65 mL of Isovue 370. Combination Contrast CTA cervical carotids and [place] CTA cervical carotids with 3-D recons truction Contrast CTA of the cervical carotids was performed 3-D reconstruction imaging obtained at a separate workstation. Right carotid system: Mild plaque is seen of the right common carotid artery. There is mild plaque a lso noted at the carotid bulb and proximal ICA. No significant diameter reduction. ECA is patent. Right vertebral artery appears unremarkable. Left carotid system: Mild plaque is seen of the left common carotid artery. There is mild to moderat e plaque also noted at the carotid bulb and proximal ICA. Diameter reduction estimated at 50%. ECA is patent. Left vertebral artery appears unremarkable. IMPRESSION: 1. 50% diameter reduction left ICA. 2. No significant diameter reduction right ICA. CTA [place] with 3-D reconstruction Contrast CTA of the [place] was performed 3-D reconstruction imaging obtained at a separate workstation. Vertebrobasilar system as well as intracranial portions of the internal carotid arteries and their ma cheo tributaries are patent. I do not see evidence for sizable aneurysm or vascular malformation. Pl ease note MRI provides greater sensitivity and specificity. Visualized brain appears grossly unremar kable. IMPRESSION: 1. No siginificant abnormality.
[2018-11-16 16:14] LABS: ALT 24 U/L (9-52); AST 24 U/L (14-36); Albumin 3.2 g/dL (3.5-5.0); Alkaline Phosphatase 80 U/L (38-126); Anion Gap 9 mmol/L; Blood Urea Nitrogen 18 mg/dL (7-17); Calcium 9.2 mg/dL (8.4-10.2); Carbon Dioxide 26 mmol/L (22-30); Chloride 103 mmol/L (98-107); Glucose 131 mg/dL (74-99); Potassium 4.4 mmol/L (3.5-5.1); Sodium 138 mmol/L (137-145); Total Bilirubin 0.2 mg/dL (0.2-1.3); Total Protein 6.5 g/dL (6.3-8.2)
[2018-11-16 16:25] LABS: Creatine Kinase MB <0.2 ng/mL (0.0-2.4); Troponin I <0.012 ng/mL (0.000-0.034)
[2018-11-16 16:31] LABS: Glucose,Whole Blood 110 mg/dL (75-99)
--- NOTE | 2018-11-16 16:47 | XR ---
EXAMINATION TYPE: XR chest 1V portable DATE OF EXAM: 11/16/2018 COMPARISON: 11/09/2018 HISTORY: Weakness. Altered mental status TECHNIQUE: Single frontal view of the chest is obtained. FINDINGS: There is no heart failure nor confluent pneumonic infiltrate. Costophrenic angles are saji r. There are chest leads. IMPRESSION: No active cardiopulmonary disease. Normal heart. Atheromatous aorta. No change.
[2018-11-16] MEDS ORDERED: ASPIRIN 325 MG TAB PO STA (18:26)
[2018-11-16] MEDS ORDERED: SODIUM CHLORIDE 0.9% 1,000 ML IV SCH (18:30)
[2018-11-16] MEDS ORDERED: BISACODYL 10 MG SUPP RECTAL PRN (21:32)
[2018-11-16] MEDS ORDERED: MAGNESIUM HYDROXIDE 2,400 MG/10 ML CUP PO PRN (21:32)
[2018-11-16] MEDS: FAMOTIDINE 20 MG TAB PO SCH (22:50)
[2018-11-17 00:36] LABS: Cholesterol 136 mg/dL (<200); HDL Cholesterol 41 mg/dL (40-60); LDL Cholesterol,Calculated 76 mg/dL (0-99); Triglycerides 95 mg/dL (<150)
[2018-11-17 01:27] LABS: Appearance,Urine Clear (Clear); Bilirubin,Urine Negative (Negative); Blood,Urine Negative (Negative); Color,Urine Light Yellow; Glucose,Urine (UA) Negative (Negative); Ketones,Urine Negative (Negative); Leukocyte Esterase,Urine Negative (Negative); Nitrite,Urine Negative (Negative); Protein,Urine Negative (Negative); Specific Gravity,Urine 1.015 (1.001-1.035); Urobilinogen,Urine <2.0 mg/dL (<2.0)
--- NOTE | 2018-11-17 09:02 | MR ---
EXAMINATION TYPE: MR brain wo con DATE OF EXAM: 11/17/2018 COMPARISON: CT 11/16/2018 HISTORY: 73-year-old female Stroke 2 months ago with left sided weakness. Patient started having righ t sided weakness and not responding appropriately at 1400 on 11-16-18. TECHNIQUE: Multiplanar, multisequence images of the brain and brainstem were acquired without IV con trast. Diffusion weighted imaging is performed. FINDINGS: There is new focal area of restricted diffusion measuring 1.7 cm in the cortex of the left precentral gyrus with corresponding increased T2/FLAIR weighted signal. Additional gyriform increased T1 signal in the region of previous left frontal lobe cortical infarct. Both of these areas show low signal on ADC map. Some linear increased signal along the region of previous right MCA territory infarct shows no convin cing low signal on ADC map. Findings suggest T2 shine through. Mild generalized supratentorial volume loss. Moderate patchy and confluent periventricular white héctor er bright signal change. Patchy increased signal right greater than left paramedian kobe as well. All findings related to chronic small vessel ischemic disease. No mass effect or midline shift or extra axial fluid collection. Mild ventricular prominence related to central atrophy. Major intracranial flow voids appear intact. Midline structures demonstrate normal morphology. The craniocervical junction is normal. Mild mucosal thickening throughout the paranasal sinuses. Globes appear intact. IMPRESSION: 1. A 1.7 cm focus of acute cortical infarct left precentral gyrus greater than 6 hours in duration. 2. Some gyriform restricted diffusion is also present marginating the patient's prior left frontal lo be infarct suggesting additional area of acute vascular insult. 3. Large area of old right MCA territory infarct. 4. No mass effect or midline shift.
[2018-11-17] MEDS: DEXTROSE 5%-0.9% NACL 1,000 ML IV SCH ×2 (09:50→23:42)
--- NOTE | 2018-11-17 10:49 | P.CRDCN ---
History of Present Illness Consult date: 11/17/18 History of present illness: This is a 73-year-old female with history of hypertension and hypercholesterolemia and atypical chest pains who apparently suffered left- sided CVA in September with residual weakness. She was being treated with Plavix. She was in [facility]. Apparently, patient was having right-sided weakness and was brought to the hospital for further evaluation. Patient was seen by neurology and felt that she is having a new onset CVA involving the right side. A JEAN-CLAUDE examination is requested to rule out any Cardec source of emboli. At the time of my examination patient is alert but frail looking. Denies any chest pain or shortness of breath. Most of the information. Most of the information is gathered from the patient's family. Patient had a previous cardiac catheterization earlier this year and was found to have calcified left main disease without any significant obstructive lesions. Patient is going to be scheduled for a JEAN-CLAUDE examination. She will also be monitored for any atrial fibrillation. Current EKG showed sinus rhythm Review of Systems As per the chart Past Medical History Past Medical History: Chest Pain / Angina, CVA/TIA, Fibromyalgia, GERD/Reflux, Hyperlipidemia, Hypertension Additional Past Medical History / Comment(s): DIET CONTROLLED DM-NO MEDS AND NOT CURRENTLY CHECKING BS, ANEMIA,MURMUR,STROKE 2000-LT SIDED WEAKNESS, TIA'S, SINUS PROBLEMS,VARICOSE VEINS, LEAKAGE OF URINE WEARS A PAD,ARTHRITIS, pne vaccine few years ago, speech writer unable to verify date at time of admit, please f/ u in am with dr office. History of Any Multi-Drug Resistant Organisms: MRSA Date of last positivie culture/infection: 2012 MDRO Source:: rt knee Past Surgical History: Back Surgery, Cholecystectomy, Heart Catheterization, Hysterectomy, Tonsillectomy Additional Past Surgical History / Comment(s): DEJAN CATARACT LENSES,COLONOSCOPY, GASTRIC BYPASS,ABDOMINALPLASTY,HERNIA REPAIR,FIDEL CARPAL TUNNEL,RT PATELLA REPAIRED. Past Anesthesia/Blood Transfusion Reactions: No Reported Reaction Smoking Status: Current every day smoker - Past Family History Mother Additional Family Medical History / Comment(s): BRAIN TUMOR Father Family Medical History: Myocardial Infarction ([place]) Medications and Allergies Home Medications Medication Instructions Recorded Confirmed Type Multivitamins, Thera [Multivitamin 1 tab PO DAILY@1700 04/13/16 11/16/18 History (formulary)] Nitroglycerin Sl Tabs [Nitrostat] 0.4 mg SUBLINGUAL Q5M PRN 04/13/16 11/16/18 History Aspirin EC [Ecotrin Low Dose] 81 mg PO DAILY@1700 12/09/17 11/16/18 History Acetaminophen Suppository [Tylenol 325 mg RECTAL Q4H PRN 11/09/18 11/16/18 History Suppository] Atorvastatin [Lipitor] 10 mg PO HS 11/09/18 11/16/18 History Bisacodyl 10 mg RECTAL DAILY PRN 11/09/18 11/16/18 History Cholecalciferol (Vitamin D3) 2,000 unit PO DAILY@1700 11/09/18 11/16/18 History [Vitamin D3] Clopidogrel [Plavix] 75 mg PO DAILY 11/09/18 11/16/18 History Cyanocobalamin (Vitamin B-12) 1,000 mcg PO DAILY@1700 11/09/18 11/16/18 History [Vitamin B-12] Folic Acid 1 mg PO DAILY@1700 11/09/18 11/16/18 History Lactose-Reduced Food [Ensure Plus] 1 can PO TID 11/09/18 11/16/18 History Lansoprazole [Prevacid] 30 mg PO DAILY 11/09/18 11/16/18 History Losartan [Cozaar] 50 mg PO DAILY 11/09/18 11/16/18 History Magnesium Hydroxide [Milk of 2,400 mg PO DAILY PRN 11/09/18 11/16/18 History Magnesia] Menthol [Biofreeze] 1 applic TOPICAL BID 11/09/18 11/16/18 History Na Phos,M-B/Na Phos,Di-Ba [Fleet 133 ml RECTAL ONCE PRN 11/09/18 11/16/18 History Adult] Sertraline [Zoloft] 50 mg PO HS@2100 11/09/18 11/16/18 History amLODIPine BESYLATE 5 mg PO DAILY 11/09/18 11/16/18 History Cefuroxime Axetil [Ceftin] 500 mg PO BID 3 Days #6 tab 11/13/18 11/16/18 Rx Metoprolol Tartrate [Lopressor] 25 mg PO BID #60 tab 11/13/18 11/16/18 Rx Thiamine [Vitamin B-1] 100 mg PO DAILY@1700 11/16/18 11/16/18 History Allergies Allergy/AdvReac Type Severity Reaction Status Date / Time lisinopril Allergy Unknown Verified 11/16/18 16:25 Penicillins Allergy Rash/Hives Verified 11/16/18 16:25 Sulfa (Sulfonamide Allergy Rash/Hives Verified 11/16/18 16:25 Antibiotics) Physical Exam Vitals: Vital Signs Temp Pulse Pulse Resp BP BP Pulse Ox 11/17/18 09:26 98.8 F 64 20 134/71 11/17/18 04:00 97.9 F 63 18 135/78 94 L 11/16/18 23:36 98.4 F 59 L 16 134/62 97 11/16/18 23:35 64 18 11/16/18 23:21 64 18 11/16/18 20:27 98.8 F 62 18 134/66 97 11/16/18 19:00 64 18 138/71 97 11/16/18 18:00 58 L 18 143/72 99 11/16/18 17:00 62 18 145/77 99 11/16/18 16:31 58 L 18 147/72 100 11/16/18 16:00 64 18 137/71 100 11/16/18 15:45 64 18 142/64 97 11/16/18 15:43 69 18 138/67 11/16/18 15:30 57 L 18 146/96 96 11/16/18 15:15 56 L 18 132/85 96 11/16/18 15:10 99 F 53 L 18 141/69 100 Intake and Output 11/16/18 11/17/18 11/17/18 22:59 06:59 14:59 Output Total 400 Balance -400 Output: Urine 400 Other: Voiding Method Bedpan # Voids 1 2 Weight 58.06 kg 58 kg GENERAL EXAM: Patient is alert and doesn't appear to be in any acute distress HEENT: Normocephalic. Normal reaction of pupils, equal size, normal range of extraocular motion. No erythema or exudates in the throat. NECK: No masses, no nuchal rigidity. CHEST: No chest wall deformity. LUNGS: Equal air entry with no crackles or wheeze. HEART: S1 and S2 normal with no audible mumurs or gallops. Regular rhythm, femorals equal on both sides.. ABDOMEN: No hepatosplenomegaly, normal bowel sounds, no guarding or rigidity. SKIN: No rashes CENTRAL NERVOUS SYSTEM: Left-sided weakness EXTREMITIES: No cyanosis, clubbing or edema. Results 11/16/18 15:30 11/16/18 15:30 Cardiac Enzymes 11/16/18 11/16/18 Range/Units 15:30 15:30 AST 24 (14-36) U/L CK-MB (CK-2) <0.2 (0.0-2.4) ng/mL Troponin I <0.012 (0.000-0.034) ng/mL Coagulation 11/16/18 Range/Units 15:30 PT 9.8 (9.0-12.0) sec APTT 25.6 (22.0-30.0) sec Lipids 11/16/18 Range/Units 15:30 Triglycerides 95 (<150) mg/dL Cholesterol 136 (<200) mg/dL HDL Cholesterol 41 (40-60) mg/dL CBC 11/16/18 Range/Units 15:30 WBC 10.9 H (3.8-10.6) k/uL RBC 3.60 L (3.80-5.40) m/uL Hgb 10.4 L (11.4-16.0) gm/dL Hct 32.0 L (34.0-46.0) % Plt Count 390 (150-450) k/uL Comprehensive Metabolic Panel 11/16/18 Range/Units 15:30 Sodium 138 (137-145) mmol/L Potassium 4.4 (3.5-5.1) mmol/L Chloride 103 (98-107) mmol/L Carbon Dioxide 26 (22-30) mmol/L BUN 18 H (7-17) mg/dL Creatinine 0.58 (0.52-1.04) mg/dL Glucose 131 H (74-99) mg/dL Calcium 9.2 (8.4-10.2) mg/dL AST 24 (14-36) U/L ALT 24 (9-52) U/L Alkaline Phosphatase 80 (38-126) U/L Total Protein 6.5 (6.3-8.2) g/dL Albumin 3.2 L (3.5-5.0) g/dL Current Medications Generic Name Dose Route Start Last Admin Trade Name Freq PRN Reason Stop Dose Admin Amlodipine Besylate 5 mg 11/17/18 09:00 Norvasc PO DAILY [facility] Aspirin 325 mg 11/17/18 18:27 Aspirin PO DAILY [facility] Atorvastatin Calcium 10 mg 11/17/18 21:00 Lipitor PO HS [facility] Bisacodyl 10 mg 11/16/18 21:32 Dulcolax RECTAL DAILY PRN Constipation Clopidogrel Bisulfate 75 mg 11/17/18 09:00 Plavix PO DAILY [facility] Famotidine 20 mg 11/16/18 21:00 11/16/18 22:50 Pepcid PO Not Given BID [facility] Folic Acid 1 mg 11/17/18 17:00 Folic Acid PO DAILY@1700 [facility] Sodium Chloride 1,000 mls @ 20 mls/hr 11/16/18 18:30 11/16/18 22:01 Saline 0.9% IV Not Given .Q24H [facility] Dextrose/Sodium Chloride 1,000 mls @ 75 mls/hr 11/17/18 09:45 Dextrose 5%-Ns Iv Soln IV .[id number] [facility] Losartan Potassium 50 mg 11/17/18 09:00 Cozaar PO DAILY [facility] Magnesium Hydroxide 2,400 mg 11/16/18 21:32 Milk Of Magnesia PO DAILY PRN Constipation Metoprolol Tartrate 25 mg 11/17/18 09:00 Lopressor PO BID [facility] Sertraline HCl 50 mg 11/17/18 21:00 Zoloft PO HS@2100 [facility] Intake and Output 11/16/18 11/17/18 11/17/18 22:59 06:59 14:59 Output Total 400 Balance -400 Output: Urine 400 Other: Voiding Method Bedpan # Voids 1 2 Weight 58.06 kg 58 kg 11/16/18 15:30 11/16/18 15:30 EKG Interpretations (text) Sinus rhythm Assessment and Plan (1) Hyperlipidemia Current Visit: Yes Status: Acute Code(s): E78.5 - HYPERLIPIDEMIA, UNSPECIFIED SNOMED Code(s): 74141440 (2) CVA (cerebral vascular accident) Current Visit: Yes Status: Acute Code(s): I63.9 - CEREBRAL INFARCTION, UNSPECIFIED SNOMED Code(s): 887408050 (3) Altered mental state Current Visit: No Status: Acute Code(s): R41.82 - ALTERED MENTAL STATUS, UNSPECIFIED SNOMED Code(s): 309765027 (4) Hypertension Current Visit: No Status: Acute Code(s): I10 - ESSENTIAL (PRIMARY) HYPERTENSION SNOMED Code(s): 48126827 Plan: We will proceed with the JEAN-CLAUDE examination. If necessary. Patient will be considered for a loop recorder insertion
[2018-11-17] MEDS: amLODIPine 5 MG TAB PO SCH (12:07)
[2018-11-17] MEDS: FAMOTIDINE 20 MG TAB PO SCH ×2 (12:08→20:23)
[2018-11-17] MEDS: CLOPIDOGREL 75 MG TAB PO SCH (12:08)
[2018-11-17] MEDS: LOSARTAN 50 MG TAB PO SCH (12:08)
[2018-11-17] MEDS: METOPROLOL TARTRATE 25 MG TAB PO SCH ×2 (12:08→20:23)
--- NOTE | 2018-11-17 12:14 | P.HPIM ---
History of Present Illness H&P Date: 11/17/18 Chief Complaint: CVA This is a 73-year-old female with a past history of recent CVA with residual to left-sided, TIA, fibromyalgia, GERD, hypertension, and hyperlipidemia. Patient resides at [facility], is followed there by Dr. Samuel. Patient had recent hospital admission on 11/09/18 for acute metabolic encephalopathy secondary to UTI with sepsis, she also had the recent stroke in September of this year. Yesterday at approximately 2 PM per ER records, patient had new onset right- sided weakness, NIH of 4. CT angiogram of the head and neck were obtained and showed 50% reduction in the left internal carotid artery. Patient was not a candidate for TPA. Patient was already on aspirin and Plavix prior to this event. MRI was done it did show a 1.7 cm focus of acute cortical infarct left paracentral gyrus greater than 6 hours in duration, gyriform restricted diffusion present marginating from the patient's prior left frontal lobe infarct suggesting additional area of acute vascular insult, large area of old right MCA territory infarct, no mass effect or midline shift. Will request neurology consultation also cardiology consultation for possible JEAN-CLAUDE to rule out cardiac source of emboli. Bedside swallow evaluation was done, patient failed, recommended nothing by mouth with IV fluids, will obtain speech therapy consultation. Review of Systems Constitutional: Denies chills, Denies chronic pain, Denies daytime sleepiness, Denies fatigue, Denies fever, Denies malaise Ears, nose, mouth and throat: Denies dysphagia, Denies epistaxis, Denies headache, Denies nasal discharge, Denies sore throat Cardiovascular: Denies dyspnea on exertion, Denies edema, Denies irregular heart beat, Denies leg edema, Denies palpitations, Denies shortness of breath, Denies syncope Respiratory: Denies congestion, Denies cough, Denies dyspnea, Denies hemoptysis , Denies wheezing Gastrointestinal: Denies abdominal pain, Denies constipation, Denies heartburn, Denies indigestion, Denies nausea, Denies vomiting Genitourinary: Denies flank pain, Denies hematuria, Denies nocturia, Denies urgency, Denies urinary frequency Musculoskeletal: Reports arm numbness/tingling, Reports gait dysfunction, Reports muscle weakness, Denies leg numbness/tingling Neurological: Reports confusion, Reports gait dysfunction, Reports memory loss, Reports weakness, Denies headaches, Denies seizures, Denies syncope, Denies tingling Past Medical History Past Medical History: Chest Pain / Angina, CVA/TIA, Fibromyalgia, GERD/Reflux, Hyperlipidemia, Hypertension Additional Past Medical History / Comment(s): DIET CONTROLLED DM-NO MEDS AND NOT CURRENTLY CHECKING BS, ANEMIA,MURMUR,STROKE 2000-LT SIDED WEAKNESS, TIA'S, SINUS PROBLEMS,VARICOSE VEINS, LEAKAGE OF URINE WEARS A PAD,ARTHRITIS, pne vaccine few years ago, newspaper writer unable to verify date at time of admit, please f/ u in am with dr office. History of Any Multi-Drug Resistant Organisms: MRSA Date of last positivie culture/infection: 2012 MDRO Source:: rt knee Past Surgical History: Back Surgery, Cholecystectomy, Heart Catheterization, Hysterectomy, Tonsillectomy Additional Past Surgical History / Comment(s): DEJAN CATARACT LENSES,COLONOSCOPY, GASTRIC BYPASS,ABDOMINALPLASTY,HERNIA REPAIR,FIDEL CARPAL TUNNEL,RT PATELLA REPAIRED. Past Anesthesia/Blood Transfusion Reactions: No Reported Reaction Smoking Status: Current every day smoker - Past Family History Mother Additional Family Medical History / Comment(s): BRAIN TUMOR Father Family Medical History: Myocardial Infarction ([place]) Medications and Allergies Home Medications Medication Instructions Recorded Confirmed Type Multivitamins, Thera [Multivitamin 1 tab PO DAILY@0 04/13/16 11/16/18 History (formulary)] Nitroglycerin Sl Tabs [Nitrostat] 0.4 mg SUBLINGUAL Q5M PRN 04/13/16 11/16/18 History Aspirin EC [Ecotrin Low Dose] 81 mg PO DAILY@0 12/09/17 11/16/18 History Acetaminophen Suppository [Tylenol 325 mg RECTAL Q4H PRN 11/09/18 11/16/18 History Suppository] Atorvastatin [Lipitor] 10 mg PO HS 11/09/18 11/16/18 History Bisacodyl 10 mg RECTAL DAILY PRN 11/09/18 11/16/18 History Cholecalciferol (Vitamin D3) 2,000 unit PO DAILY@1700 11/09/18 11/16/18 History [Vitamin D3] Clopidogrel [Plavix] 75 mg PO DAILY 11/09/18 11/16/18 History Cyanocobalamin (Vitamin B-12) 1,000 mcg PO DAILY@1700 11/09/18 11/16/18 History [Vitamin B-12] Folic Acid 1 mg PO DAILY@1700 11/09/18 11/16/18 History Lactose-Reduced Food [Ensure Plus] 1 can PO TID 11/09/18 11/16/18 History Lansoprazole [Prevacid] 30 mg PO DAILY 11/09/18 11/16/18 History Losartan [Cozaar] 50 mg PO DAILY 11/09/18 11/16/18 History Magnesium Hydroxide [Milk of 2,400 mg PO DAILY PRN 11/09/18 11/16/18 History Magnesia] Menthol [Biofreeze] 1 applic TOPICAL BID 11/09/18 11/16/18 History Na Phos,M-B/Na Phos,Di-Ba [Fleet 133 ml RECTAL ONCE PRN 11/09/18 11/16/18 History Adult] Sertraline [Zoloft] 50 mg PO HS@2100 11/09/18 11/16/18 History amLODIPine BESYLATE 5 mg PO DAILY 11/09/18 11/16/18 History Cefuroxime Axetil [Ceftin] 500 mg PO BID 3 Days #6 tab 11/13/18 11/16/18 Rx Metoprolol Tartrate [Lopressor] 25 mg PO BID #60 tab 11/13/18 11/16/18 Rx Thiamine [Vitamin B-1] 100 mg PO DAILY@1700 11/16/18 11/16/18 History Allergies Allergy/AdvReac Type Severity Reaction Status Date / Time lisinopril Allergy Unknown Verified 11/16/18 16:25 Penicillins Allergy Rash/Hives Verified 11/16/18 16:25 Sulfa (Sulfonamide Allergy Rash/Hives Verified 11/16/18 16:25 Antibiotics) Physical Exam Vitals: Vital Signs Temp Pulse Pulse Resp BP BP Pulse Ox 11/17/18 10:37 98.8 F 64 20 134/71 11/17/18 09:26 98.8 F 64 20 134/71 11/17/18 04:00 97.9 F 63 18 135/78 94 L 11/16/18 23:36 98.4 F 59 L 16 134/62 97 11/16/18 23:35 64 18 11/16/18 23:21 64 18 11/16/18 20:27 98.8 F 62 18 134/66 97 11/16/18 19:00 64 18 138/71 97 11/16/18 18:00 58 L 18 143/72 99 11/16/18 17:00 62 18 145/77 99 11/16/18 16:31 58 L 18 147/72 100 11/16/18 16:00 64 18 137/71 100 11/16/18 15:45 64 18 142/64 97 11/16/18 15:43 69 18 138/67 11/16/18 15:30 57 L 18 146/96 96 11/16/18 15:15 56 L 18 132/85 96 11/16/18 15:10 99 F 53 L 18 141/69 100 Intake and Output 11/16/18 11/17/18 11/17/18 22:59 06:59 14:59 Output Total 400 Balance -400 Output: Urine 400 Other: Voiding Method Bedpan # Voids 1 2 Weight 58.06 kg 58 kg - Constitutional General appearance: cooperative, no acute distress - EENT Eyes: PERRLA, normal appearance ENT: hearing grossly normal, normal oropharynx - Neck Neck: no lymphadenopathy, normal ROM, no thyromegaly - Respiratory Respiratory: bilateral: CTA, negative: rales, rhonchi, wheezing - Cardiovascular Rhythm: regular Heart sounds: normal: S1, S2 Abnormal Heart Sounds: no systolic murmur, no diastolic murmur - Gastrointestinal General gastrointestinal: no hepatomegaly, normal bowel sounds, no organomegaly , soft, no splenomegaly, no tenderness - Neurologic BUE weakness right more then then left, RLE weakness Neurologic: CNII-XII intact, focal deficits - Musculoskeletal Musculoskeletal: no gait normal, generalized weakness, no strength equal bilaterally, right sided weakness, left sided weakness Results CBC & Chem 7: 11/16/18 15:30 11/16/18 15:30 Labs: Abnormal Lab Results - Last 24 Hours (Table) 11/16/18 11/16/18 11/16/18 Range/Units 15:30 15:30 15:30 WBC 10.9 H (3.8-10.6) k/uL RBC 3.60 L (3.80-5.40) m/uL Hgb 10.4 L (11.4-16.0) gm/dL Hct 32.0 L (34.0-46.0) % BUN 18 H (7-17) mg/dL Glucose 131 H (74-99) mg/dL POC Glucose (mg/dL) (75-99) mg/dL Total Creatine Kinase <20 L (30-135) U/L Albumin 3.2 L (3.5-5.0) g/dL 11/16/18 Range/Units 16:08 WBC (3.8-10.6) k/uL RBC (3.80-5.40) m/uL Hgb (11.4-16.0) gm/dL Hct (34.0-46.0) % BUN (7-17) mg/dL Glucose (74-99) mg/dL POC Glucose (mg/dL) 110 H (75-99) mg/dL Total Creatine Kinase (30-135) U/L Albumin (3.5-5.0) g/dL Thrombosis Risk Factor Assmnt - Choose All That Apply Other Risk Factors: Yes Each Risk Factor Represents 2 Points: Age 61-74 years Other congenital or acquired thrombophilia - If yes, enter type in comment: Yes Each Risk Factor Represents 5 Points: Stroke (< 1 month) Thrombosis Risk Factor Assessment Total Risk Factor Score: 7 Thrombosis Risk Factor Assessment Level: High Risk Assessment and Plan Plan: 1. Acute left frontal CVA with history of left-sided stroke cause by right frontal and parietal infarction. She'll continue on Plavix 75 mg daily along with aspirin 325 mg daily neurology consulted, cardiology consulted for possible JEAN-CLAUDE will continue with cardiac monitoring to assess for any underlying A. fib. Will remain nothing by mouth, failed swallow evaluation, will consult speech therapy 2. Acute on chronic debility secondary to multiple CVAs. Physical therapy consulted 3. Hypertension. Continue Norvasc 5 mg daily losartan 50 mg daily, along with metoprolol 25 mg twice a day. 4. Hyperlipidemia. Atorvastatin 10 mg daily. 5. GERD. Continue Pepcid 20 mg twice a day 6. Diabetes mellitus type 2. On diet control, no medications at this time. 7 depression. Continue Zoloft 50 mg daily. The above impression and plan of care have been discussed and directed by signing physician. Chata Banda nurse practitioner acting as scribe for signing physician.
[2018-11-17] MEDS ORDERED: fentaNYL (PF) 50 MCG/ML 2 ML AMP ONE (12:37)
[2018-11-17] MEDS ORDERED: IV FLUID CONTINUATION 1,000 ML IV ONE (13:09)
[2018-11-17] MEDS: BENZOCAINE SPRAY 1 CAN MUCOUS MEM ONE ×2 (13:23→13:27)
[2018-11-17] MEDS ORDERED: fentaNYL (PF) 50 MCG/ML 2 ML AMP IVP ONE (13:23)
[2018-11-17] MEDS ORDERED: MIDAZOLAM 2 MG/2 ML VIAL IVP ONE (13:23)
[2018-11-17] MEDS ORDERED: SODIUM CHLORIDE 0.9% 1,000 ML IV SCH (14:00)
--- NOTE | 2018-11-17 14:00 | P.PCN ---
Date of Procedure: 11/17/18 Preoperative Diagnosis: Recurrent CVA, rule out Cardec source of emboli Postoperative Diagnosis: No definite Cardec source of emboli Procedure(s) Performed: JEAN-CLAUDE Description of Procedure: INDICATION: Rule out Cardec source of emboli. History of recurrent TIA CONSENT: Verbal consent was obtained from the family PROCEDURE:. Patient was brought to the lab in a fasting state. She was prepped and draped in the usual fashion. She was given 1 mg of Versed and 25 of fentanyl for sedation. The throat was sprayed with Cetacaine. A lubricated Omni probe was introduced into the oropharynx and was advanced into the esophagus. Multiple views were obtained. Patient tolerated the procedure well. No immediate complications. Continuous-wave, pulse-wave and color Doppler studies were performed. Saline contrast bubble injections were performed FINDINGS:. The aortic valve is tricuspid with a normal opening discussion. Mild calcification noted. The mitral valve appeared to be normal with trace regurgitation. The tricuspid valve appeared to be normal with mild regurgitation. There is prominent eustachian valve. The interatrial septum appeared to be intact without any shunt spontaneously. Injection of the contrast saline above injection did not reveal any crossing of the bubbles from the right to left. On the left and Function appear to be normal. The aorta showed moderate plaque IMPRESSION: #1. Normal valvular function with trace regurgitation across mitral and aortic and tricuspid valves #2. No PFO #3. No evidence of clot in the left atrial appendage. #4. Normal LV function. #5. Normal chamber sizes. #5. There is moderate plaque in the aorta PLAN: Continue current medical therapy. Patient may need event monitor to rule out any atrial fibrillation.
[2018-11-17] MEDS: FOLIC ACID 1 MG TAB PO SCH (16:15)
[2018-11-17] MEDS: ASPIRIN 325 MG TAB PO SCH (16:15)
[2018-11-17] MEDS ORDERED: NON-FORMULARY DRUG (Aspirin Ec 81 MG) PO SCH (17:00)
--- NOTE | 2018-11-17 17:07 | ECHOF ---
Referral Reason:stroke MEASUREMENTS -------- HEIGHT: 165.1 cm WEIGHT: 57.6 kg BP: IVSd: 1.0 cm (0.6 - 1.1) LVIDd: 3.8 cm (3.9 - 5.3) LVPWd: 1.3 cm (0.6 - 1.1) IVSs: 1.3 cm LVIDs: 3.2 cm LVPWs: 1.4 cm LA Diam: 3.5 cm (2.7 - 3.8) LAESV Index (A-L): 21.70 ml/m Ao Diam: 2.8 cm (2.0 - 3.7) LA Diam: 3.2 cm (2.7 - 3.8) MV EXCURSION: 20.824 mm (> 18.000) MV EF SLOPE: 132 mm/s (70 - 150) EPSS: 0.4 cm MV E Farhat: 0.63 m/s MV DecT: 227 ms MV A Farhat: 0.69 m/s MV E/A Ratio: 0.91 RAP: 5.00 mmHg RVSP: 27.38 mmHg FINDINGS -------- Sinus rhythm. This was a technically adequate study. The left ventricular size is normal. There is mild concentric left ventricular hypertrophy. Overa ll left ventricular systolic function is normal with, an EF between 55 - 60 %. The right ventricle is normal in size. The left atrial size is normal. The right atrial size is normal. There is mild aortic valve sclerosis. There is no evidence of aortic regurgitation. Mild mitral annular calcification present. Mild mitral regurgitation is present. Mild tricuspid regurgitation present. There is no evidence of pulmonary hypertension. The right v entricular systolic pressure, as measured by Doppler, is 27.38mmHg. The pulmonic valve was not well visualized. The aortic root size is normal. There is no pericardial effusion. CONCLUSIONS -------- 1. The left ventricular size is normal. 2. There is mild concentric left ventricular hypertrophy. 3. Overall left ventricular systolic function is normal with, an EF between 55 - 60 %. 4. The right ventricle is normal in size. 5. The left atrial size is normal. 6. The right atrial size is normal. 7. There is mild aortic valve sclerosis. 8. Mild mitral annular calcification present. 9. Mild mitral regurgitation is present. 10. Mild tricuspid regurgitation present. 11. There is no evidence of pulmonary hypertension. 12. The right ventricular systolic pressure, as measured by Doppler, is 27.38mmHg. 13. The pulmonic valve was not well visualized. 14. The aortic root size is normal. 15. There is no pericardial effusion. [employer] SERGEANT: Sarah Moore RDCS
--- NOTE | 2018-11-17 18:51 | P.CNNES ---
History of Present Illness Consult date: 11/17/18 Requesting physician: Ana Duffy Reason for Consult: amtia Chief complaint: CVA History of Present Illness: Neurology is consulting on a 73 year old female with a history of CVAwith residual left-sided deficits. Patient has a medical history that includes left- sided CVA deficits, TIA, fibromyalgia, GERD, hypertension and hyperlipidemia. Patient is a resident in long-term care facility/rehab facility and is followed by Dr. Angela woody. Patient was hospitalized on 11/09/18 for acute metabolic encephalopathy secondary to UTI with sepsis and also had recent stroke in September 2018. On 11/16/18, patient presented to the ED with new onset right- sided weakness. 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 Patient was not a candidate for TPA. CT of the brain noted age-related atrophy and chronic small vessel ischemic change without acute intracranial process. MRI of the brain was ordered. MRI noted upon receipt a 1.7 centimeter focus of acute cortical infarct left paracentral gyrus greater than 6 hours in duration, gyriform restricted diffusion present marginating from the patient's prior left frontal lobe infarct suggesting additional area of acute vascular insult, large area of old right MCA territory infarct, no mass-effect or midline shift. Cardiology was artery on consult for JEAN-CLAUDE to rule out cardiac source of emboli. Bedside swallow has been conducted and recommended nothing by mouth status with IV fluids. Speech therapy is also on consult. On contact, patient is alert and oriented 3, resting in bed in no acute distress. Significant family in the room at time of contact. Review of Systems systems not noted in HPI are negative Past Medical History Past Medical History: Chest Pain / Angina, CVA/TIA, Fibromyalgia, GERD/Reflux, Hyperlipidemia, Hypertension Additional Past Medical History / Comment(s): DIET CONTROLLED DM-NO MEDS AND NOT CURRENTLY CHECKING BS, ANEMIA,MURMUR,STROKE 2000-LT SIDED WEAKNESS, TIA'S, SINUS PROBLEMS,VARICOSE VEINS, LEAKAGE OF URINE WEARS A PAD,ARTHRITIS, pne vaccine few years ago, technical document writer unable to verify date at time of admit, please f/ u in am with dr office. History of Any Multi-Drug Resistant Organisms: MRSA Date of last positivie culture/infection: 2012 MDRO Source:: rt knee Past Surgical History: Back Surgery, Cholecystectomy, Heart Catheterization, Hysterectomy, Tonsillectomy Additional Past Surgical History / Comment(s): DEJAN CATARACT LENSES,COLONOSCOPY, GASTRIC BYPASS,ABDOMINALPLASTY,HERNIA REPAIR,FIDEL CARPAL TUNNEL,RT PATELLA REPAIRED. Past Anesthesia/Blood Transfusion Reactions: No Reported Reaction Smoking Status: Current every day smoker - Past Family History Mother Additional Family Medical History / Comment(s): BRAIN TUMOR Father Family Medical History: Myocardial Infarction ([place]) Medications and Allergies Home Medications Medication Instructions Recorded Confirmed Type Multivitamins, Thera [Multivitamin 1 tab PO DAILY@1700 04/13/16 11/16/18 History (formulary)] Nitroglycerin Sl Tabs [Nitrostat] 0.4 mg SUBLINGUAL Q5M PRN 04/13/16 11/16/18 History Aspirin EC [Ecotrin Low Dose] 81 mg PO DAILY@1700 12/09/17 11/16/18 History Acetaminophen Suppository [Tylenol 325 mg RECTAL Q4H PRN 11/09/18 11/16/18 History Suppository] Atorvastatin [Lipitor] 10 mg PO HS 11/09/18 11/16/18 History Bisacodyl 10 mg RECTAL DAILY PRN 11/09/18 11/16/18 History Cholecalciferol (Vitamin D3) 2,000 unit PO DAILY@1700 11/09/18 11/16/18 History [Vitamin D3] Clopidogrel [Plavix] 75 mg PO DAILY 11/09/18 11/16/18 History Cyanocobalamin (Vitamin B-12) 1,000 mcg PO DAILY@1700 11/09/18 11/16/18 History [Vitamin B-12] Folic Acid 1 mg PO DAILY@1700 11/09/18 11/16/18 History Lactose-Reduced Food [Ensure Plus] 1 can PO TID 11/09/18 11/16/18 History Lansoprazole [Prevacid] 30 mg PO DAILY 11/09/18 11/16/18 History Losartan [Cozaar] 50 mg PO DAILY 11/09/18 11/16/18 History Magnesium Hydroxide [Milk of 2,400 mg PO DAILY PRN 11/09/18 11/16/18 History Magnesia] Menthol [Biofreeze] 1 applic TOPICAL BID 11/09/18 11/16/18 History Na Phos,M-B/Na Phos,Di-Ba [Fleet 133 ml RECTAL ONCE PRN 11/09/18 11/16/18 History Adult] Sertraline [Zoloft] 50 mg PO HS@2100 11/09/18 11/16/18 History amLODIPine BESYLATE 5 mg PO DAILY 11/09/18 11/16/18 History Cefuroxime Axetil [Ceftin] 500 mg PO BID 3 Days #6 tab 11/13/18 11/16/18 Rx Metoprolol Tartrate [Lopressor] 25 mg PO BID #60 tab 11/13/18 11/16/18 Rx Thiamine [Vitamin B-1] 100 mg PO DAILY@1700 11/16/18 11/16/18 History Allergies Allergy/AdvReac Type Severity Reaction Status Date / Time lisinopril Allergy Unknown Verified 11/16/18 16:25 Penicillins Allergy Rash/Hives Verified 11/16/18 16:25 Sulfa (Sulfonamide Allergy Rash/Hives Verified 11/16/18 16:25 Antibiotics) Physical Examination - Vital Signs Vital Signs: Vital Signs Temp Pulse Pulse Resp BP BP BP 11/17/18 15:36 98.2 F 60 20 125/71 11/17/18 14:00 69 20 116/67 11/17/18 11:30 98.7 F 60 20 151/72 11/17/18 10:37 98.8 F 64 20 134/71 11/17/18 09:26 98.8 F 64 20 134/71 11/17/18 04:00 97.9 F 63 18 135/78 11/16/18 23:36 98.4 F 59 L 16 134/62 11/16/18 23:35 64 18 11/16/18 23:21 64 18 11/16/18 20:27 98.8 F 62 18 134/66 11/16/18 19:00 64 18 138/71 Pulse Ox 11/17/18 15:36 96 11/17/18 14:00 11/17/18 11:30 97 11/17/18 10:37 11/17/18 09:26 11/17/18 04:00 94 L 11/16/18 23:36 97 11/16/18 23:35 11/16/18 23:21 11/16/18 20:27 97 11/16/18 19:00 97 Intake and Output 11/17/18 11/17/18 11/17/18 06:59 14:59 22:59 Intake Total 600 Output Total 400 Balance -400 600 Intake: IV 150 Intake, IV Titration 450 Amount Dextrose 5%-0.9% NaCl 1, 450 000 ml @ 75 mls/hr IV . [id number] [facility] Rx#:[id number] Output: Urine 400 Other: Voiding Method Bedpan # Voids 2 2 Weight 58 kg General appearance: Alert & oriented x3, no apparent distress. Head: Atraumatic, normocephalic, normal inspection Eyes: PERRLA, EOMI. Ear, nose and throat: Normal exam, mucous membranes moist Neck: Normal inspection, absent tenderness, lymphadenopathy. Respiratory: No increased work of breathing Cardiovascular: Regular rate, rhythm GI/abdominal: No guarding, no rigidity Extremities: left side flaccid, right side extremely weak right upper extremity , minimal system developer associate manager strength 1+ out of 5, right lower extremity-no strength Neurological: cranial nerves II through XII intact significant bilateral weakness and left-sided flaccidity no seizure activity noted on physical exam Strength: side upper and lower completely flaccid, right side upper and lower extremity weakness to flaccid Sensation: Left lower extremity: normal Right lower extremity: normal Left upper extremity: normal Right upper extremity:normal Psychological: Mood and Affect appropriate for setting Results - Laboratory Findings CBC and BMP: 11/16/18 15:30 11/16/18 15:30 Abnormal Lab Findings: Abnormal Labs 11/16/18 11/16/18 11/16/18 15:30 15:30 15:30 WBC 10.9 H RBC 3.60 L Hgb 10.4 L Hct 32.0 L BUN 18 H Glucose 131 H POC Glucose (mg/dL) Total Creatine Kinase <20 L Albumin 3.2 L 11/16/18 16:08 WBC RBC Hgb Hct BUN Glucose POC Glucose (mg/dL) 110 H Total Creatine Kinase Albumin Assessment and Plan (1) CVA (cerebral vascular accident) Narrative/Plan: Patient has a history of prior CVA with significant left-sided hemiparesis. Patient's current CVA has caused significant right-sided weakness/hemiparesis. Patient will need significant PT/OT. PT/OT consults are pending. Patient is Osmar aspirin and plavix however, patient is currently NPO so we will prescribe rectal aspirin until the patient can have oral medication reimplemented. Once they are reimplemented, patient will return to aspirin and Plavix combination with Lipitor as noted. Cardiology is on consult and has performed JEAN-CLAUDE. Defer to cardiology for recommendations. Patient will need planning for further rehabilitation at long-term care facility once discharged. Patient to have a swallow evaluation by speech therapy which has been ordered. Continue neurological checks as implemented per protocol. Notify neurology with any new neurological status changes. serum homocysteine level is pending. EEG is pending. Current Visit: Yes Status: Acute Code(s): I63.9 - CEREBRAL INFARCTION, UNSPECIFIED SNOMED Code(s): 487936593 (2) Left hemiparesis Narrative/Plan: continue PT/ OTresidual deficit from prior CVA Current Visit: Yes Status: Acute Code(s): G81.94 - HEMIPLEGIA, UNSPECIFIED AFFECTING LEFT NONDOMINANT SIDE SNOMED Code(s): 177391956 (3) Right sided weakness Narrative/Plan: continue PT/OT/speechnew deficits Current Visit: Yes Status: Acute Code(s): R53.1 - WEAKNESS SNOMED Code(s) : 618374738 (4) Debility Narrative/Plan: Patient has significant upper and lower extremity bilateral deficits from previous and acute stroke She will need significant long-term care and rehabilitation Family had significant questions with regard to expectations with regard to rehabilitation and need for long-term assisted living/long-term care facility placement as an ongoing need. Current Visit: Yes Status: Acute Code(s): R53.81 - OTHER MALAISE SNOMED Code(s): 16323309 Plan: Status: Neurology will continue to follow and provide updates as needed or warranted. Contact our office with any questions I have discussed the plan of care with the physician prior to implementation and he agrees with the plan as implemented.
[2018-11-17] MEDS: ASPIRIN 300 MG SUPP RECTAL SCH (18:54)
[2018-11-17] MEDS: SERTRALINE 50 MG TAB PO SCH (20:23)
[2018-11-17] MEDS: ATORVASTATIN 10 MG TAB PO SCH (20:23)
[2018-11-18] MEDS: ASPIRIN 325 MG TAB PO SCH ×2 (08:45→09:39)
[2018-11-18] MEDS: amLODIPine 5 MG TAB PO SCH (08:45)
[2018-11-18] MEDS: METOPROLOL TARTRATE 25 MG TAB PO SCH ×3 (08:46→20:30)
[2018-11-18] MEDS: CLOPIDOGREL 75 MG TAB PO SCH ×2 (08:46→09:39)
[2018-11-18] MEDS: FAMOTIDINE 20 MG TAB PO SCH ×3 (08:46→20:30)
[2018-11-18] MEDS: LOSARTAN 50 MG TAB PO SCH ×2 (08:46→09:38)
[2018-11-18] MEDS: ASPIRIN 300 MG SUPP RECTAL SCH (09:39)
--- NOTE | 2018-11-18 13:28 | P.PN ---
Subjective Progress Note Date: 11/18/18 This 71-year-old female was readmitted with recurrence of stroke this time affecting the right side. Patient had stroke involving the left side in September. Patient had a JEAN-CLAUDE examination, yesterday. No Cardec source of emboli was noted. Patient is stable. Advised her to have loop recorder insertion to rule out the possibility of atrial fibrillation. This will be performed tomorrow. Meanwhile patient will continue current medical therapy. Physical therapy Objective - Vital Signs Vital signs: Vital Signs Temp 98.7 F 11/18/18 11:30 Pulse 57 L 11/18/18 11:30 Resp 20 11/18/18 11:30 BP 129/73 11/18/18 11:30 Pulse Ox 97 11/18/18 11:30 Intake & Output 11/17/18 11/18/18 11/18/18 18:59 06:59 18:59 Intake Total 600 600 Balance 600 600 Weight 58 kg Intake: IV 150 Intake, IV Titration 450 600 Amount Dextrose 5%-0.9% NaCl 1, 450 600 000 ml @ 75 mls/hr IV . [id number] [facility] Rx#:[id number] Oral 0 Other: Voiding Method Bedpan # Voids 2 1 - Exam GENERAL EXAM: Patient is alert and oriented and doesn't appear to be in any acute distress HEENT: Normocephalic. Normal reaction of pupils, equal size, normal range of extraocular motion. No erythema or exudates in the throat. NECK: No masses, no nuchal rigidity. CHEST: No chest wall deformity. LUNGS: Equal air entry with no crackles or wheeze. HEART: S1 and S2 normal with no audible mumurs or gallops. Regular rhythm, femorals equal on both sides.. ABDOMEN: No hepatosplenomegaly, normal bowel sounds, no guarding or rigidity. SKIN: No rashes CENTRAL NERVOUS SYSTEM: As per neurology. Patient is a left-sided weakness and some weakness in the right side EXTREMITIES: No cyanosis, clubbing or edema. - Labs CBC & Chem 7: 11/16/18 15:30 11/16/18 15:30 Assessment and Plan (1) Hyperlipidemia Current Visit: Yes Status: Acute Code(s): E78.5 - HYPERLIPIDEMIA, UNSPECIFIED SNOMED Code(s): 27210391 (2) CVA (cerebral vascular accident) Current Visit: Yes Status: Acute Code(s): I63.9 - CEREBRAL INFARCTION, UNSPECIFIED SNOMED Code(s): 293391327 (3) Altered mental state Current Visit: No Status: Acute Code(s): R41.82 - ALTERED MENTAL STATUS, UNSPECIFIED SNOMED Code(s): 218074225 (4) Hypertension Current Visit: No Status: Acute Code(s): I10 - ESSENTIAL (PRIMARY) HYPERTENSION SNOMED Code(s): 11634295 Plan: We'll proceed with a loop recorder insertion in the morning
--- NOTE | 2018-11-18 13:29 | P.PN ---
Subjective This is a 73-year-old female with a past history of recent CVA with residual to left-sided, TIA, fibromyalgia, GERD, hypertension, and hyperlipidemia. Patient resides at [facility], is followed there by Dr. Samuel. Patient had recent hospital admission on 11/09/18 for acute metabolic encephalopathy secondary to UTI with sepsis, she also had the recent stroke in September of this year. Yesterday at approximately 2 PM per ER records, patient had new onset right- sided weakness, NIH of 4. CT angiogram of the head and neck were obtained and showed 50% reduction in the left internal carotid artery. Patient was not a candidate for TPA. Patient was already on aspirin and Plavix prior to this event. MRI was done it did show a 1.7 cm focus of acute cortical infarct left paracentral gyrus greater than 6 hours in duration, gyriform restricted diffusion present marginating from the patient's prior left frontal lobe infarct suggesting additional area of acute vascular insult, large area of old right MCA territory infarct, no mass effect or midline shift. Will request neurology consultation also cardiology consultation for possible JEAN-CLAUDE to rule out cardiac source of emboli. Bedside swallow evaluation was done, patient failed, recommended nothing by mouth with IV fluids, will obtain speech therapy consultation. 11/18: Patient underwent JEAN-CLAUDE yesterday, showed normal valvular function with trace regurgitation across the mitral and aortic and tricuspid valves, no PFO, no evidence of clot in the left atrial appendage, normal LV function and chamber sizes, moderate plaque in the aorta. Echocardiogram revealed EF between 5560%, mild concentric left ventricular hypertrophy, mild aortic sclerosis, mild mitral regurgitation, mild tricuspid regurgitation. Diastolic evaluation was done today, she did pass. Cardiology plans for Loop recorder tomorrow morning, then discharged to [facility] possibly tomorrow. Objective - Vital Signs Vital signs: Vital Signs Temp 98.9 F 11/18/18 04:00 Pulse 62 11/18/18 04:00 Resp 18 11/18/18 04:00 BP 135/79 11/18/18 04:00 Pulse Ox 95 11/18/18 04:00 Intake & Output 11/17/18 11/18/18 11/18/18 18:59 06:59 18:59 Intake Total 600 600 Balance 600 600 Weight 58 kg Intake: IV 150 Intake, IV Titration 450 600 Amount Dextrose 5%-0.9% NaCl 1, 450 600 000 ml @ 75 mls/hr IV . [id number] [facility] Rx#:[id number] Oral 0 Other: Voiding Method Bedpan # Voids 2 1 - Exam - Constitutional General appearance: cooperative, no acute distress - EENT Eyes: PERRLA, normal appearance ENT: hearing grossly normal, normal oropharynx - Neck Neck: no lymphadenopathy, normal ROM, no thyromegaly - Respiratory Respiratory: bilateral: CTA, negative: rales, rhonchi, wheezing - Cardiovascular Rhythm: regular Heart sounds: normal: S1, S2 Abnormal Heart Sounds: no systolic murmur, no diastolic murmur - Gastrointestinal General gastrointestinal: no hepatomegaly, normal bowel sounds, no organomegaly , soft, no splenomegaly, no tenderness - Neurologic BUE weakness right more then then left, RLE weakness Neurologic: CNII-XII intact, focal deficits - Musculoskeletal Musculoskeletal: no gait normal, generalized weakness, no strength equal bilaterally, right sided weakness, left sided weakness - Labs CBC & Chem 7: 11/16/18 15:30 11/16/18 15:30 Assessment and Plan Plan: 1. Acute left frontal CVA with history of left-sided stroke cause by right frontal and parietal infarction. She'll continue on Plavix 75 mg daily along with aspirin 325 mg daily neurology consulted, cardiology consulted JEAN-CLAUDE failed to reveal any cardiac source of emboli, will have loop recorder placed . 2. Acute on chronic debility secondary to multiple CVAs. Physical therapy consulted, will return to [facility] for physical therapy. 3. Hypertension. Continue Norvasc 5 mg daily losartan 50 mg daily, along with metoprolol 25 mg twice a day. 4. Hyperlipidemia. Atorvastatin 10 mg daily. 5. GERD. Continue Pepcid 20 mg twice a day 6. Diabetes mellitus type 2. On diet control, no medications at this time. 7 depression. Continue Zoloft 50 mg daily. The above impression and plan of care have been discussed and directed by signing physician. Chata Banda nurse practitioner acting as scribe for signing physician.
[2018-11-18] MEDS: DEXTROSE 5%-0.9% NACL 1,000 ML IV SCH ×2 (17:18→23:59)
[2018-11-18] MEDS: FOLIC ACID 1 MG TAB PO SCH (17:19)
--- NOTE | 2018-11-18 18:13 | P.PN ---
Subjective Progress Note Date: 11/18/18 Principal diagnosis: CVA neurology is following in a 73-year-old female with history of CVA with residual left-sided deficits. Patient has a medical history that includes left- sided CVA deficits, TIA, fibromyalgia, GERD, hypertension and hyperlipidemia. Patient is a resident of long-term care facility/rehab facility and is followed by Dr. Samuel in the facility. Patient was hospitalized on 11/09/18 for acute metabolic encephalopathy secondary to UTI with sepsis and also had recent stroke in September 2018. On 11/16/18, patient presented to the ED with new onset right-sided weakness. 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 Patient was not a candidate for TPA. CT of the brain noted age-related atrophy and chronic small vessel ischemic change without acute intracranial process. MRI of the brain was ordered. MRI noteda 1.7 cm focus of acute cortical infarct left precentral gyrus greater than 6 hours in duration. Some gyriform restricted diffusion is also present marginating the patient's prior left frontal lobe infarct suggesting additional area of acute vascular insult. Large area of old right MCA territory infarct. No mass-effect or midline shift. Cardiology was already on consult for JEAN-CLAUDE to rule out cardiac source of emboli. Bedside swallow has been conducted and recommended nothing by mouth status with IV fluids. Speech therapy is also on consult. Interval update 11/18/18: JEAN-CLAUDE did not identify any embolic source for patient's stroke at this time. Family states that cardiology is recommending possible loop recorder placement. Patient is alert and oriented 3, resting in bed in no acute distress. Patient and family report no new neurological status changes. Nursing reports no new neurological status changes since last rounding. Objective - Vital Signs Vital signs: Vital Signs Temp 98.9 F 11/18/18 15:33 Pulse 75 11/18/18 15:33 Resp 20 11/18/18 15:33 BP 148/76 11/18/18 15:33 Pulse Ox 98 11/18/18 15:33 Intake & Output 11/17/18 11/18/18 11/18/18 18:59 06:59 18:59 Intake Total 600 600 800 Balance 600 600 800 Weight 58 kg Intake: IV 150 Intake, IV Titration 450 600 600 Amount Dextrose 5%-0.9% NaCl 1, 450 600 600 000 ml @ 75 mls/hr IV . [id number] [facility] Rx#:[id number] Oral 0 200 Other: Voiding Method Bedpan # Voids 2 1 1 - Exam General appearance: Alert & oriented x3, no apparent distress. Head: Atraumatic, normocephalic, normal inspection Eyes: PERRLA, EOMI. Ear, nose and throat: Normal exam, mucous membranes moist Neck: Normal inspection, absent tenderness, lymphadenopathy. Respiratory: No increased work of breathing Cardiovascular: Regular rate, rhythm GI/abdominal: No guarding, no rigidity Extremities:as noted below Neurological: cranial nerves II through XII intact left side flaccid upper and lower extremity, right upper and lower extremity 2+ out of 5 no seizure activity noted on physical exam no facial asymmetry noted on exam Strength: unable to move left upper and lower extremity right upper and lower extremity 2+ out of 5 Sensation: Left lower extremity: normal Right lower extremity: normal Left upper extremity: normal Right upper extremity:normal Psychological: Mood and Affect appropriate for setting - Labs CBC & Chem 7: 11/16/18 15:30 11/16/18 15:30 Assessment and Plan (1) CVA (cerebral vascular accident) Narrative/Plan: Patient has a history of prior CVA with significant left-sided hemiparesis. Patient's current CVA has caused significant right-sided weakness. Patient will need significant PT/OT. PT/OT consults are pending. Patient is taking aspirin and plavix however, patient is currently NPO so we will prescribe rectal aspirin until the patient can have oral medication reimplemented. Once they are reimplemented, patient will return to aspirin and Plavix combination with Lipitor as noted. Cardiology is on consult and has performed JEAN-CLAUDE. Defer to cardiology for recommendations on loop recorder. Patient to have a swallow evaluation by speech therapy which has been ordered. Continue neurological checks as implemented per protocol. Notify neurology with any new neurological status changes. serum homocysteine level is pending. EEG is pending. Current Visit: Yes Status: Acute Code(s): I63.9 - CEREBRAL INFARCTION, UNSPECIFIED SNOMED Code(s): 866705709 (2) Left hemiparesis Narrative/Plan: continue PT/ OTresidual deficit from prior CVA Current Visit: Yes Status: Acute Code(s): G81.94 - HEMIPLEGIA, UNSPECIFIED AFFECTING LEFT NONDOMINANT SIDE SNOMED Code(s): 885974776 (3) Right sided weakness Narrative/Plan: continue PT/OT/speechnew deficits Current Visit: Yes Status: Acute Code(s): R53.1 - WEAKNESS SNOMED Code(s) : 877149939 (4) Debility Narrative/Plan: Patient has significant upper and lower extremity bilateral deficits from previous and acute stroke She will need significant long-term care and rehabilitation Current Visit: Yes Status: Acute Code(s): R53.81 - OTHER MALAISE SNOMED Code(s): 76607389 Plan: Status: Neurology will clear the patient for discharge once the patient's EEG is taken. Contact our office with any questions I have discussed the plan of care with the physician prior to implementation and he agrees with the plan as implemented.
[2018-11-18] MEDS: SERTRALINE 50 MG TAB PO SCH (20:30)
[2018-11-18] MEDS: ATORVASTATIN 10 MG TAB PO SCH (20:30)
[2018-11-19] MEDS: ASPIRIN 300 MG SUPP RECTAL SCH (09:22)
[2018-11-19] MEDS: LOSARTAN 50 MG TAB PO SCH (09:26)
[2018-11-19] MEDS: METOPROLOL TARTRATE 25 MG TAB PO SCH ×2 (09:26→20:44)
[2018-11-19] MEDS: CLOPIDOGREL 75 MG TAB PO SCH (09:27)
[2018-11-19] MEDS: amLODIPine 5 MG TAB PO SCH (09:27)
[2018-11-19] MEDS: ASPIRIN 325 MG TAB PO SCH (09:27)
[2018-11-19] MEDS: FAMOTIDINE 20 MG TAB PO SCH ×2 (09:33→20:44)
--- NOTE | 2018-11-19 12:10 | P.PN ---
Subjective Progress Note Date: 11/19/18 neurology is following in a 73-year-old female with history of CVA with residual left-sided deficits. Patient has a medical history that includes left- sided CVA deficits, TIA, fibromyalgia, GERD, hypertension and hyperlipidemia. Patient is a resident of long-term care facility/rehab facility and is followed by Dr. Samuel in the facility. Patient was hospitalized on 11/09/18 for acute metabolic encephalopathy secondary to UTI with sepsis and also had recent stroke in September 2018. On 11/16/18, patient presented to the ED with new onset right-sided weakness. 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 Patient was not a candidate for TPA. CT of the brain noted age-related atrophy and chronic small vessel ischemic change without acute intracranial process. MRI of the brain was ordered. MRI noteda 1.7 cm focus of acute cortical infarct left precentral gyrus greater than 6 hours in duration. Some gyriform restricted diffusion is also present marginating the patient's prior left frontal lobe infarct suggesting additional area of acute vascular insult. Large area of old right MCA territory infarct. No mass-effect or midline shift. Cardiology was already on consult for JEAN-CLAUDE to rule out cardiac source of emboli. Bedside swallow has been conducted and recommended nothing by mouth status with IV fluids. Speech therapy is also on consult. Interval update 11/18/18: JEAN-CLAUDE did not identify any embolic source for patient's stroke at this time. Family states that cardiology is recommending possible loop recorder placement. Patient is alert and oriented 3, resting in bed in no acute distress. Patient and family report no new neurological status changes. Nursing reports no new neurological status changes since last rounding. 11/19 patient evaluated in the morning. No complaints. Speech evaluated the patient suspect aspiration on thin liquids recommends thickened diet but family refuses as patient had a gastric sleeve surgery. Will be started on pured diet with IV fluids since July water can be aspirated. Patient would need intermittent IV fluids at [facility] facility. She is taking for loop recorder today for possible atrial fibrillation. Patient gets IV fluids until Monday will be discharged to [facility] on Monday Objective - Vital Signs Vital signs: Vital Signs Temp 98.8 F 11/19/18 11:46 Pulse 69 11/19/18 11:46 Resp 17 11/19/18 11:46 BP 166/75 12/24/18 11:46 Pulse Ox 98 11/19/18 11:46 Intake & Output 11/18/18 11/19/18 11/19/18 18:59 06:59 18:59 Intake Total 800 600 Balance 800 600 Weight 56 kg Intake: Intake, IV Titration 600 600 Amount Dextrose 5%-0.9% NaCl 1, 600 600 000 ml @ 75 mls/hr IV . [id number] [facility] Rx#:[id number] Oral 200 Other: Voiding Method Bedpan Bedpan Diaper Diaper Incontinent Incontinent # Voids 2 1 - Exam - Exam - Constitutional General appearance: cooperative, no acute distress - EENT Eyes: PERRLA, normal appearance ENT: hearing grossly normal, normal oropharynx - Neck Neck: no lymphadenopathy, normal ROM, no thyromegaly - Respiratory Respiratory: bilateral: CTA, negative: rales, rhonchi, wheezing - Cardiovascular Rhythm: regular Heart sounds: normal: S1, S2 Abnormal Heart Sounds: no systolic murmur, no diastolic murmur - Gastrointestinal General gastrointestinal: no hepatomegaly, normal bowel sounds, no organomegaly , soft, no splenomegaly, no tenderness - Neurologic BUE weakness right more then then left, RLE weakness Neurologic: CNII-XII intact, focal deficits - Musculoskeletal Musculoskeletal: gait not assessed generalized weakness, no strength equal bilaterally, new right sided weakness - improving , left sided weakness - Labs CBC & Chem 7: 11/16/18 15:30 11/16/18 15:30 Assessment and Plan Plan: 1. Acute left frontal CVA with history of left-sided stroke cause by right frontal and parietal infarction. She'll continue on Plavix 75 mg daily along with aspirin 325 mg daily neurology consulted, cardiology consulted JEAN-CLAUDE failed to reveal any cardiac source of emboli, will have loop recorder placed today. . 2. Acute on chronic debility secondary to multiple CVAs. Physical therapy consulted, will return to [facility] for physical therapy. 3. Hypertension. Continue Norvasc 5 mg daily losartan 50 mg daily, along with metoprolol 25 mg twice a day. 4. Hyperlipidemia. Atorvastatin 10 mg daily. 5. GERD. Continue Pepcid 20 mg twice a day 6. Diabetes mellitus type 2. On diet control, no medications at this time. 7 depression. Continue Zoloft 50 mg daily. 8. Dysphagia secondary to CVA. Speech evaluation suggests aspiration with thin liquids would recommend thickened diet but family refuses as patient has gastric sleeve surgery and cannot do thickened diet. Pured diet recommended with the IV fluids since patient cannot have sips of water. Patient will need intermittent IV fluids [facility] #9 disposition likely in on Monday
[2018-11-19] MEDS ORDERED: IV FLUID CONTINUATION 1,000 ML IV ONE (12:20)
[2018-11-19] MEDS ORDERED: fentaNYL (PF) 50 MCG/ML 2 ML AMP IV ONE (12:25)
[2018-11-19] MEDS ORDERED: MIDAZOLAM 2 MG/2 ML VIAL IV ONE (12:25)
[2018-11-19] MEDS ORDERED: LIDOCAINE 1% INJ 10MG/ML (20 ML MDV) SQ ONE (12:25)
[2018-11-19] MEDS: SODIUM CHLORIDE 0.9% 1,000 ML IV SCH (12:41)
--- NOTE | 2018-11-19 12:41 | P.PCN ---
Date of Procedure: 11/19/18 Preoperative Diagnosis: Recurrent CVA, rule out atrial fibrillation Postoperative Diagnosis: The same Procedure(s) Performed: Loop recorder insertion Description of Procedure: This is a 73-year-old female was admitted with recurrent CVA. JEAN-CLAUDE examination did not reveal any significant obstructive disease. A loop recorder insertion is recommended to rule out the possibility of atrial fibrillation. Procedure: Patient was brought to the lab in a fasting state. She was prepped and draped in the usual fashion. The skin in the third intercostal space on the left side was infiltrated with lidocaine. An incision was made in the skin and the loop recorder was inserted in the usual fashion. The patient tolerated the procedure well. Adequate signals were obtained. Pacemaker is programmed bradycardia detection rate of 30 and tachycardia detection rate of 158. No immediate complications. Plan: Patient will be continued on current medical therapy. Potentially, patient could be discharged home. Follow-up in the office in one week .
[2018-11-19] MEDS: DEXTROSE 5%-0.9% NACL 1,000 ML IV SCH (15:52)
[2018-11-19] MEDS: FOLIC ACID 1 MG TAB PO SCH (15:52)
[2018-11-19] MEDS: ACETAMINOPHEN TAB 325 MG TAB PO PRN (20:44)
[2018-11-19] MEDS: SERTRALINE 50 MG TAB PO SCH (20:44)
[2018-11-19] MEDS: ATORVASTATIN 10 MG TAB PO SCH (20:44)
[2018-11-20] MEDS: DEXTROSE 5%-0.9% NACL 1,000 ML IV SCH ×2 (03:32→18:54)
[2018-11-20] MEDS: ASPIRIN 300 MG SUPP RECTAL SCH (10:23)
[2018-11-20] MEDS: METOPROLOL TARTRATE 25 MG TAB PO SCH ×2 (10:25→20:22)
[2018-11-20] MEDS: FAMOTIDINE 20 MG TAB PO SCH ×2 (10:25→20:21)
[2018-11-20] MEDS: ASPIRIN 325 MG TAB PO SCH (10:25)
[2018-11-20] MEDS: LOSARTAN 50 MG TAB PO SCH (10:25)
[2018-11-20] MEDS: CLOPIDOGREL 75 MG TAB PO SCH (10:26)
[2018-11-20] MEDS: amLODIPine 5 MG TAB PO SCH (10:26)
[2018-11-20] MEDS: SODIUM CHLORIDE 0.9% 1,000 ML IV SCH (12:43)
--- NOTE | 2018-11-20 13:16 | P.PN ---
Subjective Progress Note Date: 11/20/18 This 71-year-old female was readmitted with recurrence of stroke this time affecting the right side. Patient had stroke involving the left side in September. Patient had a JEAN-CLAUDE examination, yesterday. No Cardec source of emboli was noted. Patient is stable. Advised her to have loop recorder insertion to rule out the possibility of atrial fibrillation. This will be performed tomorrow. Meanwhile patient will continue current medical therapy. Physical therapy. 11/20/2018. Patient is clinically stable. Known arrhythmias noted. No complaints of chest pain or shortness of breath. The puncture site appears to be healing well without any hematoma. Most probably patient will be transferred to regular tomorrow. Meanwhile, continue current medical therapy Objective - Vital Signs Vital signs: Vital Signs Temp 98.4 F 11/20/18 08:20 Pulse 70 11/20/18 08:20 Resp 18 11/20/18 08:20 BP 135/60 11/20/18 08:20 Pulse Ox 96 11/20/18 08:20 Intake & Output 11/19/18 11/20/18 11/20/18 18:59 06:59 18:59 Intake Total 50 1200 Balance 50 1200 Weight 56 kg Intake: IV 50 Intake, IV Titration 1200 Amount Dextrose 5%-0.9% NaCl 1, 1200 000 ml @ 75 mls/hr IV . [id number] [facility] Rx#:[id number] Other: Voiding Method Bedpan Bedpan Diaper Diaper Incontinent Incontinent # Voids 2 - Exam GENERAL EXAM: Patient is alert and oriented and doesn't appear to be in any acute distress HEENT: Normocephalic. Normal reaction of pupils, equal size, normal range of extraocular motion. No erythema or exudates in the throat. NECK: No masses, no nuchal rigidity. CHEST: No chest wall deformity. LUNGS: Equal air entry with no crackles or wheeze. HEART: S1 and S2 normal with no audible mumurs or gallops. Regular rhythm, femorals equal on both sides.. ABDOMEN: No hepatosplenomegaly, normal bowel sounds, no guarding or rigidity. SKIN: No rashes CENTRAL NERVOUS SYSTEM: As per neurology. Patient is a left-sided weakness and some weakness in the right side EXTREMITIES: No cyanosis, clubbing or edema. - Labs CBC & Chem 7: 11/16/18 15:30 11/16/18 15:30 Assessment and Plan (1) Hyperlipidemia Current Visit: Yes Status: Acute Code(s): E78.5 - HYPERLIPIDEMIA, UNSPECIFIED SNOMED Code(s): 43379172 (2) CVA (cerebral vascular accident) Current Visit: Yes Status: Acute Code(s): I63.9 - CEREBRAL INFARCTION, UNSPECIFIED SNOMED Code(s): 043885098 (3) Altered mental state Current Visit: No Status: Acute Code(s): R41.82 - ALTERED MENTAL STATUS, UNSPECIFIED SNOMED Code(s): 475165773 (4) Hypertension Current Visit: No Status: Acute Code(s): I10 - ESSENTIAL (PRIMARY) HYPERTENSION SNOMED Code(s): 88923820 Plan: Patient is clinically stable. No arrhythmias noted. Possible transfer to nursing facility tomorrow.
--- NOTE | 2018-11-20 14:20 | P.PN ---
Subjective Progress Note Date: 11/20/18 neurology is following in a 73-year-old female with history of CVA with residual left-sided deficits. Patient has a medical history that includes left- sided CVA deficits, TIA, fibromyalgia, GERD, hypertension and hyperlipidemia. Patient is a resident of long-term care facility/rehab facility and is followed by Dr. Samuel in the facility. Patient was hospitalized on 11/09/18 for acute metabolic encephalopathy secondary to UTI with sepsis and also had recent stroke in September 2018. On 11/16/18, patient presented to the ED with new onset right-sided weakness. 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 Patient was not a candidate for TPA. CT of the brain noted age-related atrophy and chronic small vessel ischemic change without acute intracranial process. MRI of the brain was ordered. MRI noteda 1.7 cm focus of acute cortical infarct left precentral gyrus greater than 6 hours in duration. Some gyriform restricted diffusion is also present marginating the patient's prior left frontal lobe infarct suggesting additional area of acute vascular insult. Large area of old right MCA territory infarct. No mass-effect or midline shift. Cardiology was already on consult for JEAN-CLAUDE to rule out cardiac source of emboli. Bedside swallow has been conducted and recommended nothing by mouth status with IV fluids. Speech therapy is also on consult. Interval update 11/18/18: JEAN-CLAUDE did not identify any embolic source for patient's stroke at this time. Family states that cardiology is recommending possible loop recorder placement. Patient is alert and oriented 3, resting in bed in no acute distress. Patient and family report no new neurological status changes. Nursing reports no new neurological status changes since last rounding. 11/19 patient evaluated in the morning. No complaints. Speech evaluated the patient suspect aspiration on thin liquids recommends thickened diet but family refuses as patient had a gastric sleeve surgery. Will be started on pured diet with IV fluids since July water can be aspirated. Patient would need intermittent IV fluids at [facility] facility. She is taking for loop recorder today for possible atrial fibrillation. Patient gets IV fluids until Monday will be discharged to [facility] on Monday 11/19 patient was evaluated at bedside in the morning continues to have some movement in the right upper extremity loop recorder was placed yesterday. Plan to discharge tomorrow to [facility] with continued speech therapy. ROS Constitutional: Denies chills, Denies fever, Denies lethargy, Denies malaise, Denies poor appetite, Denies weakness, Denies weight loss Eyes: denies decreased vision, denies diplopia, denies discharge, denies pain Ears: deny: decreased hearing Ears, nose, mouth and throat: Denies dental pain, Denies headache, Denies nasal discharge, Denies nose pain Cardiovascular: Denies chest pain, Denies decreased exercise tolerance, Denies edema, Denies high blood pressure, Denies irregular heart beat, Denies palpitations, Denies paroxysmal nocturnal dyspnea, Denies rapid heart beat, Denies shortness of breath Respiratory: Denies congestion, Denies cough, Denies cough with sputum, Denies dyspnea, Denies home oxygen, Denies wheezing Gastrointestinal: Denies abdominal pain, Denies change in bowel habits, Denies coffee ground emesis, Denies early satiety, Denies excessive gas, Denies heartburn, Denies hematemesis, Denies hematochezia, Denies loss of appetite, Denies nausea, Denies vomiting Genitourinary: Denies dysuria, Denies flank pain, Denies kidney stones, Denies menorrhagia, Denies urgency, Denies urinary frequency Musculoskeletal: Bedbound, no movement from the left side improvement in the right lower extremity weakness Integumentary: Denies rash, Denies wounds, Denies brittle nails, Denies change in hair/nails, Denies darkening of skin Neurological: Endorses gait dysfunction, Denies loss of vision, motor weakness, Denies numbness, Denies paralysis, Denies paresthesias, Denies seizures Objective - Vital Signs Vital signs: Vital Signs Temp 98.4 F 11/20/18 08:20 Pulse 70 11/20/18 08:20 Resp 18 11/20/18 08:20 BP 135/60 11/20/18 08:20 Pulse Ox 96 11/20/18 08:20 Intake & Output 11/19/18 11/20/18 11/20/18 18:59 06:59 18:59 Intake Total 50 1200 Balance 50 1200 Weight 56 kg Intake: IV 50 Intake, IV Titration 1200 Amount Dextrose 5%-0.9% NaCl 1, 1200 000 ml @ 75 mls/hr IV . [id number] [facility] Rx#:[id number] Other: Voiding Method Bedpan Bedpan Diaper Diaper Incontinent Incontinent # Voids 2 - Exam - Exam - Constitutional General appearance: cooperative, no acute distress - EENT Eyes: PERRLA, normal appearance ENT: hearing grossly normal, normal oropharynx - Neck Neck: no lymphadenopathy, normal ROM, no thyromegaly - Respiratory Respiratory: bilateral: CTA, negative: rales, rhonchi, wheezing - Cardiovascular Rhythm: regular Heart sounds: normal: S1, S2 Abnormal Heart Sounds: no systolic murmur, no diastolic murmur - Gastrointestinal General gastrointestinal: no hepatomegaly, normal bowel sounds, no organomegaly , soft, no splenomegaly, no tenderness - Neurologic BUE weakness right more then then left, RLE weakness Neurologic: CNII-XII intact, focal deficits - Musculoskeletal Musculoskeletal: gait not assessed generalized weakness, no strength equal bilaterally, new right sided weakness - improving , left sided weakness - Labs CBC & Chem 7: 11/16/18 15:30 11/16/18 15:30 Assessment and Plan Plan: 1. Acute left frontal CVA with history of left-sided stroke cause by right frontal and parietal infarction. She'll continue on Plavix 75 mg daily along with aspirin 325 mg daily neurology consulted, cardiology consulted JEAN-CLAUDE failed to reveal any cardiac source of emboli, will have loop recorder placed today. Continue normal saline at 75 mL per hour . 2. Acute on chronic debility secondary to multiple CVAs. Physical therapy consulted, will return to [facility] for physical therapy. 3. Hypertension. Continue Norvasc 5 mg daily losartan 50 mg daily, along with metoprolol 25 mg twice a day. 4. Hyperlipidemia. Atorvastatin 10 mg daily. 5. GERD. Continue Pepcid 20 mg twice a day 6. Diabetes mellitus type 2. On diet control, no medications at this time. 7 depression. Continue Zoloft 50 mg daily. 8. Dysphagia secondary to CVA. Speech evaluation suggests aspiration with thin liquids would recommend thickened diet but family refuses as patient has gastric sleeve surgery and cannot do thickened diet. Pured diet recommended with the IV fluids since patient cannot have sips of water. Patient will need intermittent IV fluids [facility] continue normal saline at 75 mL per hour #9 disposition likely in on Monday
[2018-11-20] MEDS: FOLIC ACID 1 MG TAB PO SCH (17:34)
[2018-11-20] MEDS: SERTRALINE 50 MG TAB PO SCH (20:21)
[2018-11-20] MEDS: ATORVASTATIN 40 MG TAB PO SCH (20:22)
[2018-11-20] MEDS: ACETAMINOPHEN TAB 325 MG TAB PO PRN (20:22)
[2018-11-21 06:52] LABS: HCT 29.3 % (34.0-46.0); HGB 9.5 gm/dL (11.4-16.0); MCH 29.1 pg (25.0-35.0); MCHC 32.4 g/dL (31.0-37.0); MCV 89.7 fL (80.0-100.0); Mean Platelet Volume 7.1; Platelet Count 361 k/uL (150-450); RBC 3.26 m/uL (3.80-5.40); RDW 12.9 % (11.5-15.5); WBC 11.1 k/uL (3.8-10.6)
[2018-11-21 07:16] LABS: Anion Gap 7 mmol/L; Blood Urea Nitrogen 11 mg/dL (7-17); Calcium 8.9 mg/dL (8.4-10.2); Carbon Dioxide 24 mmol/L (22-30); Chloride 108 mmol/L (98-107); Glucose 125 mg/dL (74-99); Sodium 139 mmol/L (137-145)
[2018-11-21] MEDS: amLODIPine 5 MG TAB PO SCH (09:30)
[2018-11-21] MEDS: LOSARTAN 50 MG TAB PO SCH (09:30)
[2018-11-21] MEDS: METOPROLOL TARTRATE 25 MG TAB PO SCH ×2 (09:30→20:39)
[2018-11-21] MEDS: FAMOTIDINE 20 MG TAB PO SCH ×2 (09:30→20:39)
[2018-11-21] MEDS: ASPIRIN 325 MG TAB PO SCH (09:30)
[2018-11-21] MEDS: CLOPIDOGREL 75 MG TAB PO SCH (09:30)
[2018-11-21] MEDS: DEXTROSE 5%-0.9% NACL 1,000 ML IV SCH ×2 (09:31→20:39)
--- NOTE | 2018-11-21 10:29 | P.DS ---
Providers Date of admission: 11/16/18 18:26 Attending physician: Jami Chan MD Consults: 11/16/18 18:26 Consult Physician Routine Consulting Provider: Ken Simpson Consult Reason/Comments: cva Do you want consulting provider notified?: Yes 11/17/18 09:12 Consult Physician Routine Consulting Provider: Michelle Arguello Consult Reason/Comments: recurrent stroke, evaluate for JEAN-CLAUDE Do you want consulting provider notified?: Yes Primary care physician: Samanta Samuel Hospital Course: 73-year-old female with history of CVA with residual left-sided deficits. Patient has a medical history that includes left-sided CVA deficits, TIA, fibromyalgia, GERD, hypertension and hyperlipidemia. Patient is a resident of long-term care facility/rehab facility and is followed by Dr. Samuel in the facility. Patient was hospitalized on 11/09/18 for acute metabolic encephalopathy secondary to UTI with sepsis and also had recent stroke in September 2018. On 11/16/18, patient presented to the ED with new onset right- sided weakness. 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 Patient was not a candidate for TPA. CT of the brain noted age-related atrophy and chronic small vessel ischemic change without acute intracranial process. MRI of the brain was ordered. MRI noteda 1.7 cm focus of acute cortical infarct left precentral gyrus greater than 6 hours in duration. Some gyriform restricted diffusion is also present marginating the patient's prior left frontal lobe infarct suggesting additional area of acute vascular insult. Large area of old right MCA territory infarct. No mass-effect or midline shift. Cardiology was already on consult for JEAN-CLAUDE to rule out cardiac source of emboli. Bedside swallow has been conducted and recommended nothing by mouth status with IV fluids. Speech therapy is also on consult. Interval update 11/18/18: JEAN-CLAUDE did not identify any embolic source for patient's stroke at this time. Family states that cardiology is recommending possible loop recorder placement. Patient is alert and oriented 3, resting in bed in no acute distress. Patient and family report no new neurological status changes. Nursing reports no new neurological status changes since last rounding. 11/19 patient evaluated in the morning. No complaints. Speech evaluated the patient suspect aspiration on thin liquids recommends thickened diet but family refuses as patient had a gastric sleeve surgery. Will be started on pured diet with IV fluids since July water can be aspirated. Patient would need intermittent IV fluids at [facility] facility. She is taking for loop recorder today for possible atrial fibrillation. Patient gets IV fluids until Monday will be discharged to [facility] on Monday 11/19 patient was evaluated at bedside in the morning continues to have some movement in the right upper extremity loop recorder was placed yesterday. Plan to discharge tomorrow to [facility] with continued speech therapy. Discharge diagnosis 1. Acute left frontal CVA with history of left-sided stroke cause by right frontal and parietal infarction. . 2. Acute on chronic debility secondary to multiple CVAs. 3. Hypertension. 4. Hyperlipidemia. 5. GERD. 6. Diabetes mellitus type 2. 7 depression. 8. Dysphagia secondary to CVA. Speech evaluation suggests aspiration with thin liquids would recommend thickened diet but family refuses as patient has gastric sleeve surgery and cannot do thickened diet. Pured diet recommended with the IV fluids since patient cannot have sips of water. Patient will need intermittent IV fluids [facility] [place] [facility] Patient Condition at Discharge: Fair Plan - Discharge Summary Discharge Rx Participant: No New Discharge Prescriptions: New Atorvastatin [Lipitor] 40 mg PO HS tab Continue Nitroglycerin Sl Tabs [Nitrostat] 0.4 mg SUBLINGUAL Q5M PRN PRN Reason: Chest Pain Multivitamins, Thera [Multivitamin (formulary)] 1 tab PO DAILY@1700 Aspirin EC [Ecotrin Low Dose] 81 mg PO DAILY@1700 Na Phos,M-B/Na Phos,Di-Ba [Fleet Adult] 133 ml RECTAL ONCE PRN PRN Reason: Constipation Bisacodyl 10 mg RECTAL DAILY PRN PRN Reason: Constipation Acetaminophen Suppository [Tylenol Suppository] 325 mg RECTAL Q4H PRN PRN Reason: Pain Menthol [Biofreeze] 1 applic TOPICAL BID Lactose-Reduced Food [Ensure Plus] 1 can PO TID Sertraline [Zoloft] 50 mg PO HS@2100 Lansoprazole [Prevacid] 30 mg PO DAILY Cholecalciferol (Vitamin D3) [Vitamin D3] 2,000 unit PO DAILY@1700 Losartan [Cozaar] 50 mg PO DAILY Folic Acid 1 mg PO DAILY@1700 Cyanocobalamin (Vitamin B-12) [Vitamin B-12] 1,000 mcg PO DAILY@1700 Clopidogrel [Plavix] 75 mg PO DAILY amLODIPine BESYLATE 5 mg PO DAILY Magnesium Hydroxide [Milk of Magnesia] 2,400 mg PO DAILY PRN PRN Reason: Constipation Metoprolol Tartrate [Lopressor] 25 mg PO BID #60 tab Thiamine [Vitamin B-1] 100 mg PO DAILY@1700 Discontinued Atorvastatin [Lipitor] 10 mg PO HS Cefuroxime Axetil [Ceftin] 500 mg PO BID 3 Days #6 tab Discharge Medication List Multivitamins, Thera [Multivitamin (formulary)] 1 tab PO DAILY@1700 04/13/16 [ History] Nitroglycerin Sl Tabs [Nitrostat] 0.4 mg SUBLINGUAL Q5M PRN 04/13/16 [History] Aspirin EC [Ecotrin Low Dose] 81 mg PO DAILY@1700 12/09/17 [History] Acetaminophen Suppository [Tylenol Suppository] 325 mg RECTAL Q4H PRN 11/09/18 [ History] Bisacodyl 10 mg RECTAL DAILY PRN 11/09/18 [History] Cholecalciferol (Vitamin D3) [Vitamin D3] 2,000 unit PO DAILY@1700 11/09/18 [ History] Clopidogrel [Plavix] 75 mg PO DAILY 11/09/18 [History] Cyanocobalamin (Vitamin B-12) [Vitamin B-12] 1,000 mcg PO DAILY@1700 11/09/18 [ History] Folic Acid 1 mg PO DAILY@1700 11/09/18 [History] Lactose-Reduced Food [Ensure Plus] 1 can PO TID 11/09/18 [History] Lansoprazole [Prevacid] 30 mg PO DAILY 11/09/18 [History] Losartan [Cozaar] 50 mg PO DAILY 11/09/18 [History] Magnesium Hydroxide [Milk of Magnesia] 2,400 mg PO DAILY PRN 11/09/18 [History] Menthol [Biofreeze] 1 applic TOPICAL BID 11/09/18 [History] Na Phos,M-B/Na Phos,Di-Ba [Fleet Adult] 133 ml RECTAL ONCE PRN 11/09/18 [History ] Sertraline [Zoloft] 50 mg PO HS@2100 11/09/18 [History] amLODIPine BESYLATE 5 mg PO DAILY 11/09/18 [History] Metoprolol Tartrate [Lopressor] 25 mg PO BID #60 tab 11/13/18 [Rx] Thiamine [Vitamin B-1] 100 mg PO DAILY@1700 11/16/18 [History] Atorvastatin [Lipitor] 40 mg PO HS tab 11/20/18 [Rx] Follow up Appointment(s)/Referral(s): Samanta Samuel MD [Primary Care Provider] - 1-2 days Activity/Diet/Wound Care/Special Instructions: [facility] Diet - dysphagia pureed, direct supervision, medicine in apple sauce/ yogurt , sit upright 90 degree when feeding, thin liquids cause cough, need speech therapy at [facility] with intermittent iv fluids for hydration, alternate solid and liquid, small bites of food Speech - laryngeal exercises Discharge Disposition: TRANSFER TO SNF/ECF
[2018-11-21] MEDS: SODIUM CHLORIDE 0.9% 1,000 ML IV SCH (12:23)
--- NOTE | 2018-11-21 14:09 | P.PN ---
Subjective Progress Note Date: 11/21/18 neurology is following in a 73-year-old female with history of CVA with residual left-sided deficits. Patient has a medical history that includes left- sided CVA deficits, TIA, fibromyalgia, GERD, hypertension and hyperlipidemia. Patient is a resident of long-term care facility/rehab facility and is followed by Dr. Samuel in the facility. Patient was hospitalized on 11/09/18 for acute metabolic encephalopathy secondary to UTI with sepsis and also had recent stroke in September 2018. On 11/16/18, patient presented to the ED with new onset right-sided weakness. 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 Patient was not a candidate for TPA. CT of the brain noted age-related atrophy and chronic small vessel ischemic change without acute intracranial process. MRI of the brain was ordered. MRI noteda 1.7 cm focus of acute cortical infarct left precentral gyrus greater than 6 hours in duration. Some gyriform restricted diffusion is also present marginating the patient's prior left frontal lobe infarct suggesting additional area of acute vascular insult. Large area of old right MCA territory infarct. No mass-effect or midline shift. Cardiology was already on consult for JEAN-CLAUDE to rule out cardiac source of emboli. Bedside swallow has been conducted and recommended nothing by mouth status with IV fluids. Speech therapy is also on consult. Interval update 11/18/18: JEAN-CLAUDE did not identify any embolic source for patient's stroke at this time. Family states that cardiology is recommending possible loop recorder placement. Patient is alert and oriented 3, resting in bed in no acute distress. Patient and family report no new neurological status changes. Nursing reports no new neurological status changes since last rounding. 11/19 patient evaluated in the morning. No complaints. Speech evaluated the patient suspect aspiration on thin liquids recommends thickened diet but family refuses as patient had a gastric sleeve surgery. Will be started on pured diet with IV fluids since July water can be aspirated. Patient would need intermittent IV fluids at [facility] facility. She is taking for loop recorder today for possible atrial fibrillation. Patient gets IV fluids until Monday will be discharged to [facility] on Tuesday 11/20 patient was evaluated at bedside in the morning continues to have some movement in the right upper extremity loop recorder was placed yesterday. Plan to discharge tomorrow to [facility] with continued speech therapy. 11/21 patient examined at bedside normal major improvement from yesterday. Speech reevaluate the patient and since patient was choking on solid food recommended getting modified barium swallow. Dr. Coleman consulted for possible placement of PEG tube as patient has a history of gastric bypass is not meeting nutritional needs. Patient is on Plavix and would be elective procedure suzette durán . ROS Constitutional: Denies chills, Denies fever, Denies lethargy, Denies malaise, Denies poor appetite, Denies weakness, Denies weight loss Eyes: denies decreased vision, denies diplopia, denies discharge, denies pain Ears: deny: decreased hearing Ears, nose, mouth and throat: Denies dental pain, Denies headache, Denies nasal discharge, Denies nose pain Cardiovascular: Denies chest pain, Denies decreased exercise tolerance, Denies edema, Denies high blood pressure, Denies irregular heart beat, Denies palpitations, Denies paroxysmal nocturnal dyspnea, Denies rapid heart beat, Denies shortness of breath Respiratory: Denies congestion, Denies cough, Denies cough with sputum, Denies dyspnea, Denies home oxygen, Denies wheezing Gastrointestinal: Denies abdominal pain, Denies change in bowel habits, Denies coffee ground emesis, Denies early satiety, Denies excessive gas, Denies heartburn, Denies hematemesis, Denies hematochezia, Denies loss of appetite, Denies nausea, Denies vomiting Genitourinary: Denies dysuria, Denies flank pain, Denies kidney stones, Denies menorrhagia, Denies urgency, Denies urinary frequency Musculoskeletal: Bedbound, no movement from the left side improvement in the right lower extremity weakness Integumentary: Denies rash, Denies wounds, Denies brittle nails, Denies change in hair/nails, Denies darkening of skin Neurological: Endorses gait dysfunction, Denies loss of vision, motor weakness, Denies numbness, Denies paralysis, Denies paresthesias, Endorses dysphagia improvement in right upper extremity movementeizures Objective - Vital Signs Vital signs: Vital Signs Temp 98.3 F 11/21/18 12:29 Pulse 55 L 11/21/18 12:29 Resp 20 11/21/18 12:29 BP 137/64 11/21/18 12:29 Pulse Ox 97 11/21/18 12:29 Intake & Output 11/20/18 11/21/18 11/21/18 18:59 06:59 18:59 Intake Total 600 0 Output Total 1000 Balance 600 -1000 Weight 46.5 kg Intake: Intake, IV Titration 600 Amount Dextrose 5%-0.9% NaCl 1, 600 000 ml @ 75 mls/hr IV . [id number] CALEB Rx#:[id number] Oral 0 Output: Urine 1000 Other: Voiding Method Incontinent Diaper Incontinent # Voids 1 # Bowel Movements 1 - Exam - Exam - Constitutional General appearance: cooperative, no acute distress - EENT Eyes: PERRLA, normal appearance ENT: hearing grossly normal, normal oropharynx - Neck Neck: no lymphadenopathy, normal ROM, no thyromegaly - Respiratory Respiratory: bilateral: CTA, negative: rales, rhonchi, wheezing - Cardiovascular Rhythm: regular Heart sounds: normal: S1, S2 Abnormal Heart Sounds: no systolic murmur, no diastolic murmur - Gastrointestinal General gastrointestinal: no hepatomegaly, normal bowel sounds, no organomegaly , soft, no splenomegaly, no tenderness - Neurologic BUE weakness right more then then left, RLE weakness right upper extremity movement improved with decreased wrist movement and decrease hold for gripping Neurologic: CNII-XII intact, focal deficits - Musculoskeletal Musculoskeletal: gait not assessed generalized weakness, no strength equal bilaterally, new right sided weakness - improving , left sided weakness - Labs CBC & Chem 7: 11/21/18 06:23 11/21/18 06:23 Labs: Abnormal Lab Results - Last 24 Hours (Table) 11/21/18 11/21/18 Range/Units 06:23 06:23 WBC 11.1 H (3.8-10.6) k/uL RBC 3.26 L (3.80-5.40) m/uL Hgb 9.5 L (11.4-16.0) gm/dL Hct 29.3 L (34.0-46.0) % Chloride 108 H (98-107) mmol/L Creatinine 0.45 L (0.52-1.04) mg/dL Glucose 125 H (74-99) mg/dL Assessment and Plan Plan: 1. Acute left frontal CVA with history of left-sided stroke cause by right frontal and parietal infarction. She'll continue on Plavix 75 mg daily along with aspirin 325 mg daily neurology consulted, cardiology consulted JEAN-CLAUDE failed to reveal any cardiac source of emboli, will have loop recorder placed today. Continue normal saline at 75 mL per hour . 2. Acute on chronic debility secondary to multiple CVAs. Physical therapy consulted, will return to [facility] for physical therapy. 3. Hypertension. Continue Norvasc 5 mg daily losartan 50 mg daily, along with metoprolol 25 mg twice a day. 4. Hyperlipidemia. Atorvastatin 10 mg daily. 5. GERD. Continue Pepcid 20 mg twice a day 6. Diabetes mellitus type 2. On diet control, no medications at this time. 7 depression. Continue Zoloft 50 mg daily. 8. Dysphagia secondary to CVA. Speech evaluation suggests aspiration with thin liquids would recommend thickened diet but family refuses as patient has gastric sleeve surgery and cannot do thickened diet. Pured diet recommended with the IV fluids since patient cannot have sips of water. Patient will need intermittent IV fluids [facility] continue normal saline at 75 mL per hour. Modified barium swallow ordered. Surgery to evaluate for PEG tube #9 disposition likely tomorrow
--- NOTE | 2018-11-21 14:40 | FL ---
EXAMINATION TYPE: FL barium swallow w video DATE OF EXAM: 11/21/2018 MODIFIED SWALLOW / DEGLUTITION STUDY CLINICAL HISTORY: Recent stroke. Coughing and choking when swallowing. TECHNIQUE: Deglutition study is performed utilizing thin liquid barium, honey and nectar thick liqui d barium, and barium thick applesauce. A total of 3 minutes 51 seconds of fluoroscopic time was utili zed during procedure. 0 spot images are saved. COMPARISON: None. FINDINGS: The oral and pharyngeal phases show delay in initiation and propagation with all modalities tested. Spillage of ingested material into hypopharyngeal airway is noted. There is aspiration with thin liquid barium which does not initiate cough reflex. No significant pharyngeal residue was appre ciated. IMPRESSION: Aspiration of thin liquid barium which does not initiate cough reflex. [facility] for further details if necessary.
[2018-11-21 15:04] VITALS: BMI 17.0
--- NOTE | 2018-11-21 16:32 | P.GSCN ---
History of Present Illness Consult date: 11/21/18 Reason for Consult: Dysphagia History of present illness: 73-year-old female has had 4 recent CVA episodes. Last CVA prior to this admission was in September. According to the son and the patient had dysphagia that was transient and gradually was improving. This recent CVA from last Monday has led to additional difficulties with swallowing. She is currently on a pured diet only. She is not able to maintain her liquid intake at this time. We were consulted for PEG tube placement. Patient unfortunately had a previous gastric bypass. This was confirmed on CAT scan from 2016 that I reviewed. Review of Systems The patient denies any acute changes in vision or hearing, no odynophagia, no chest pain or shortness of breath, no dysuria or hematuria, no headache, no runny nose, no rectal bleeding or melena, no unexplained weight loss Past Medical History Past Medical History: Chest Pain / Angina, CVA/TIA, Fibromyalgia, GERD/Reflux, Hyperlipidemia, Hypertension Additional Past Medical History / Comment(s): DIET CONTROLLED DM-NO MEDS AND NOT CURRENTLY CHECKING BS, ANEMIA,MURMUR,STROKE 2000-LT SIDED WEAKNESS, TIA'S, SINUS PROBLEMS,VARICOSE VEINS, LEAKAGE OF URINE WEARS A PAD,ARTHRITIS, pne vaccine few years ago, automobile and property underwriter unable to verify date at time of admit, please f/ u in am with dr office. History of Any Multi-Drug Resistant Organisms: MRSA Year Discovered:: 2012 MDRO Source:: rt knee Past Surgical History: Back Surgery, Cholecystectomy, Heart Catheterization, Hysterectomy, Tonsillectomy Additional Past Surgical History / Comment(s): DEJAN CATARACT LENSES,COLONOSCOPY, GASTRIC BYPASS,ABDOMINALPLASTY,HERNIA REPAIR,FIDEL CARPAL TUNNEL,RT PATELLA REPAIRED. Past Anesthesia/Blood Transfusion Reactions: No Reported Reaction Smoking Status: Current every day smoker - Past Family History Mother Additional Family Medical History / Comment(s): BRAIN TUMOR Father Family Medical History: Myocardial Infarction ([place]) Medications and Allergies Home Medications Medication Instructions Recorded Confirmed Type Multivitamins, Thera [Multivitamin 1 tab PO DAILY@1700 04/13/16 11/16/18 History (formulary)] Nitroglycerin Sl Tabs [Nitrostat] 0.4 mg SUBLINGUAL Q5M PRN 04/13/16 11/16/18 History Aspirin EC [Ecotrin Low Dose] 81 mg PO DAILY@1700 12/09/17 11/16/18 History Acetaminophen Suppository [Tylenol 325 mg RECTAL Q4H PRN 11/09/18 11/16/18 History Suppository] Bisacodyl 10 mg RECTAL DAILY PRN 11/09/18 11/16/18 History Cholecalciferol (Vitamin D3) 2,000 unit PO DAILY@1700 11/09/18 11/16/18 History [Vitamin D3] Clopidogrel [Plavix] 75 mg PO DAILY 11/09/18 11/16/18 History Cyanocobalamin (Vitamin B-12) 1,000 mcg PO DAILY@1700 11/09/18 11/16/18 History [Vitamin B-12] Folic Acid 1 mg PO DAILY@1700 11/09/18 11/16/18 History Lactose-Reduced Food [Ensure Plus] 1 can PO TID 11/09/18 11/16/18 History Lansoprazole [Prevacid] 30 mg PO DAILY 11/09/18 11/16/18 History Losartan [Cozaar] 50 mg PO DAILY 11/09/18 11/16/18 History Magnesium Hydroxide [Milk of 2,400 mg PO DAILY PRN 11/09/18 11/16/18 History Magnesia] Menthol [Biofreeze] 1 applic TOPICAL BID 11/09/18 11/16/18 History Na Phos,M-B/Na Phos,Di-Ba [Fleet 133 ml RECTAL ONCE PRN 11/09/18 11/16/18 History Adult] Sertraline [Zoloft] 50 mg PO HS@2100 11/09/18 11/16/18 History amLODIPine BESYLATE 5 mg PO DAILY 11/09/18 11/16/18 History Metoprolol Tartrate [Lopressor] 25 mg PO BID #60 tab 11/13/18 11/16/18 Rx Thiamine [Vitamin B-1] 100 mg PO DAILY@1700 11/16/18 11/16/18 History Atorvastatin [Lipitor] 40 mg PO HS tab 11/20/18 Rx Allergies Allergy/AdvReac Type Severity Reaction Status Date / Time lisinopril Allergy Unknown Verified 11/16/18 16:25 Penicillins Allergy Rash/Hives Verified 11/16/18 16:25 Sulfa (Sulfonamide Allergy Rash/Hives Verified 11/16/18 16:25 Antibiotics) Surgical - Exam Vital Signs Temp Pulse Resp BP Pulse Ox 99 F 53 L 18 141/69 100 11/16/18 15:10 11/16/18 15:10 11/16/18 15:10 11/16/18 15:10 11/16/18 15:10 Physical exam: General: Well-developed, well-nourished HEENT: Normocephalic, sclerae nonicteric Abdomen: Nontender, nondistended Extremities: No edema Neuro: Alert and oriented Results - Labs 11/21/18 06:23 11/21/18 06:23 Abnormal Lab Results - Last 24 Hours (Table) 11/21/18 11/21/18 Range/Units 06:23 06:23 WBC 11.1 H (3.8-10.6) k/uL RBC 3.26 L (3.80-5.40) m/uL Hgb 9.5 L (11.4-16.0) gm/dL Hct 29.3 L (34.0-46.0) % Chloride 108 H (98-107) mmol/L Creatinine 0.45 L (0.52-1.04) mg/dL Glucose 125 H (74-99) mg/dL Diabetes panel 11/21/18 Range/Units 06:23 Sodium 139 (137-145) mmol/L Potassium 4.0 (3.5-5.1) mmol/L Chloride 108 H (98-107) mmol/L Carbon Dioxide 24 (22-30) mmol/L BUN 11 (7-17) mg/dL Creatinine 0.45 L (0.52-1.04) mg/dL Glucose 125 H (74-99) mg/dL Calcium 8.9 (8.4-10.2) mg/dL Calcium panel 11/21/18 Range/Units 06:23 Calcium 8.9 (8.4-10.2) mg/dL Pituitary panel 11/21/18 Range/Units 06:23 Sodium 139 (137-145) mmol/L Potassium 4.0 (3.5-5.1) mmol/L Chloride 108 H (98-107) mmol/L Carbon Dioxide 24 (22-30) mmol/L BUN 11 (7-17) mg/dL Creatinine 0.45 L (0.52-1.04) mg/dL Glucose 125 H (74-99) mg/dL Calcium 8.9 (8.4-10.2) mg/dL Adrenal panel 11/21/18 Range/Units 06:23 Sodium 139 (137-145) mmol/L Potassium 4.0 (3.5-5.1) mmol/L Chloride 108 H (98-107) mmol/L Carbon Dioxide 24 (22-30) mmol/L BUN 11 (7-17) mg/dL Creatinine 0.45 L (0.52-1.04) mg/dL Glucose 125 H (74-99) mg/dL Calcium 8.9 (8.4-10.2) mg/dL Assessment and Plan (1) Dysphagia Narrative/Plan: Clinical scenario discussed with the patient and her son at the bedside. I also discussed the case with Dr. Anders. The patient is unable to have a traditional PEG tube placement because of her previous surgery. Options would include therefore PICC line/TPN, Dobbhoff feeding tube, percutaneous jejunostomy feeding tube, open jejunostomy feeding tube placement. Gastrostomy either open or minimally invasive into the defunctionalized portion of stomach is likely also an option but would be associated with additional risks than a traditional PEG tube. Patient's family would like to consider these options at this time. We'll reevaluate tomorrow. Current Visit: Yes Status: Acute Code(s): R13.10 - DYSPHAGIA, UNSPECIFIED SNOMED Code(s): 51876249
[2018-11-21] MEDS: FOLIC ACID 1 MG TAB PO SCH (18:54)
[2018-11-21] MEDS: SERTRALINE 50 MG TAB PO SCH (20:39)
[2018-11-21] MEDS: ATORVASTATIN 40 MG TAB PO SCH (20:39)
[2018-11-22 07:17] LABS: Basophils % (A) 0 %; Eosinophils # (A) 0.2 k/uL (0-0.7); Eosinophils % (A) 2 %; HCT 28.8 % (34.0-46.0); HGB 9.3 gm/dL (11.4-16.0); Lymphocytes # (A) 1.9 k/uL (1.0-4.8); Lymphocytes % (A) 19 %; MCH 28.5 pg (25.0-35.0); MCHC 32.1 g/dL (31.0-37.0); MCV 88.6 fL (80.0-100.0); Monocytes # (A) 0.6 k/uL (0-1.0); Monocytes % (A) 6 %; Neutrophils # (A) 6.9 k/uL (1.3-7.7); Neutrophils % (A) 71 %; Platelet Count 382 k/uL (150-450); RBC 3.25 m/uL (3.80-5.40); RDW 12.9 % (11.5-15.5); WBC 9.7 k/uL (3.8-10.6)
[2018-11-22 07:20] LABS: Anion Gap 8 mmol/L; Blood Urea Nitrogen 9 mg/dL (7-17); Calcium 8.7 mg/dL (8.4-10.2); Carbon Dioxide 25 mmol/L (22-30); Chloride 106 mmol/L (98-107); Glucose 136 mg/dL (74-99); Sodium 139 mmol/L (137-145)
[2018-11-22] MEDS: FAMOTIDINE 20 MG TAB PO SCH ×2 (10:29→20:21)
[2018-11-22] MEDS: amLODIPine 5 MG TAB PO SCH (10:29)
[2018-11-22] MEDS: METOPROLOL TARTRATE 25 MG TAB PO SCH ×2 (10:29→20:20)
[2018-11-22] MEDS: CLOPIDOGREL 75 MG TAB PO SCH (10:29)
[2018-11-22] MEDS: ASPIRIN 325 MG TAB PO SCH (10:29)
[2018-11-22] MEDS: SODIUM CHLORIDE 0.9% 1,000 ML IV SCH (11:53)
--- NOTE | 2018-11-22 14:23 | P.DS ---
Providers Date of admission: 11/16/18 18:26 Attending physician: Jami Chan MD Consults: 11/16/18 18:26 Consult Physician Routine Consulting Provider: Ken Simpson Consult Reason/Comments: cva Do you want consulting provider notified?: Yes 11/17/18 09:12 Consult Physician Routine Consulting Provider: Michelle Arguello Consult Reason/Comments: recurrent stroke, evaluate for JEAN-CLAUDE Do you want consulting provider notified?: Yes 11/21/18 12:38 Consult Physician Routine Consulting Provider: Claudia Coleman Consult Reason/Comments: PEG tube vs J tube placement, h/o gastric bypass Do you want consulting provider notified?: Yes Primary care physician: Samanta Samuel Hospital Course: 73-year-old female with history of CVA with residual left-sided deficits. Patient has a medical history that includes left-sided CVA deficits, TIA, fibromyalgia, GERD, hypertension and hyperlipidemia. Patient is a resident of long-term care facility/rehab facility and is followed by Dr. Samuel in the facility. Patient was hospitalized on 11/09/18 for acute metabolic encephalopathy secondary to UTI with sepsis and also had recent stroke in September 2018. On 11/16/18, patient presented to the ED with new onset right- sided weakness. 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 Patient was not a candidate for TPA. CT of the brain noted age-related atrophy and chronic small vessel ischemic change without acute intracranial process. MRI of the brain was ordered. MRI noteda 1.7 cm focus of acute cortical infarct left precentral gyrus greater than 6 hours in duration. Some gyriform restricted diffusion is also present marginating the patient's prior left frontal lobe infarct suggesting additional area of acute vascular insult. Large area of old right MCA territory infarct. No mass-effect or midline shift. Cardiology was already on consult for JEAN-CLAUDE to rule out cardiac source of emboli. Bedside swallow has been conducted and recommended nothing by mouth status with IV fluids. Speech therapy is also on consult. Interval update 11/18/18: JEAN-CLAUDE did not identify any embolic source for patient's stroke at this time. Family states that cardiology is recommending possible loop recorder placement. Patient is alert and oriented 3, resting in bed in no acute distress. Patient and family report no new neurological status changes. Nursing reports no new neurological status changes since last rounding. 11/19 patient evaluated in the morning. No complaints. Speech evaluated the patient suspect aspiration on thin liquids recommends thickened diet but family refuses as patient had a gastric sleeve surgery. Will be started on pured diet with IV fluids since July water can be aspirated. Patient would need intermittent IV fluids at [facility] facility. She is taking for loop recorder today for possible atrial fibrillation. Patient gets IV fluids until Monday will be discharged to [facility] on Tuesday 11/20 patient was evaluated at bedside in the morning continues to have some movement in the right upper extremity loop recorder was placed yesterday. Plan to discharge tomorrow to [facility] with continued speech therapy. patient was evaluated by surgery. Patient has a history of previous gastric bypass and is a poor surgical candidate as per Dr. Hoang for open laparotomy for placement of J-tube though patient is a good candidate for percutaneous J-tube placement for feeding until patient recovers swallowing ability. Currently patient is on pured diet and she is not unable to maintain her liquid intake as she aspirates thin liquid. Thickened diet was suggested by the speech but patient has not tolerated in the past and would not try it. Since [facility] does not offer percutaneous J-tube placement, patient will be transferred to [facility] for further care and transfer back to [facility] once the tube was placed. Discharge diagnosis 1. Acute left frontal CVA with history of left-sided stroke cause by right frontal and parietal infarction. . 2. Acute on chronic debility secondary to multiple CVAs. 3. Hypertension. 4. Hyperlipidemia. 5. GERD. 6. Diabetes mellitus type 2. 7 depression. 8. Dysphagia secondary to CVA. Disposition/ Goal of care/ nutrition Speech evaluation suggests aspiration with thin liquids would recommend thickened diet but family refuses as patient has gastric bypass surgery and cannot do thickened diet. Pured diet recommended with the IV fluids intermittently which is not possible at the group home facility if needed more frequently. Discussed in length with family, family would like patient transferred to [facility] for percutaneous J-tube placement to meet nutritional needs Transferred to tertiary care center Patient Condition at Discharge: Fair Plan - Discharge Summary Discharge Rx Participant: No New Discharge Prescriptions: New Atorvastatin [Lipitor] 40 mg PO HS tab Continue Nitroglycerin Sl Tabs [Nitrostat] 0.4 mg SUBLINGUAL Q5M PRN PRN Reason: Chest Pain Multivitamins, Thera [Multivitamin (formulary)] 1 tab PO DAILY@1700 Aspirin EC [Ecotrin Low Dose] 81 mg PO DAILY@1700 Na Phos,M-B/Na Phos,Di-Ba [Fleet Adult] 133 ml RECTAL ONCE PRN PRN Reason: Constipation Bisacodyl 10 mg RECTAL DAILY PRN PRN Reason: Constipation Acetaminophen Suppository [Tylenol Suppository] 325 mg RECTAL Q4H PRN PRN Reason: Pain Menthol [Biofreeze] 1 applic TOPICAL BID Lactose-Reduced Food [Ensure Plus] 1 can PO TID Sertraline [Zoloft] 50 mg PO HS@2100 Lansoprazole [Prevacid] 30 mg PO DAILY Cholecalciferol (Vitamin D3) [Vitamin D3] 2,000 unit PO DAILY@1700 Losartan [Cozaar] 50 mg PO DAILY Folic Acid 1 mg PO DAILY@1700 Cyanocobalamin (Vitamin B-12) [Vitamin B-12] 1,000 mcg PO DAILY@1700 Clopidogrel [Plavix] 75 mg PO DAILY amLODIPine BESYLATE 5 mg PO DAILY Magnesium Hydroxide [Milk of Magnesia] 2,400 mg PO DAILY PRN PRN Reason: Constipation Metoprolol Tartrate [Lopressor] 25 mg PO BID #60 tab Thiamine [Vitamin B-1] 100 mg PO DAILY@1700 Discontinued Atorvastatin [Lipitor] 10 mg PO HS Cefuroxime Axetil [Ceftin] 500 mg PO BID 3 Days #6 tab Discharge Medication List Multivitamins, Thera [Multivitamin (formulary)] 1 tab PO DAILY@1700 04/13/16 [ History] Nitroglycerin Sl Tabs [Nitrostat] 0.4 mg SUBLINGUAL Q5M PRN 04/13/16 [History] Aspirin EC [Ecotrin Low Dose] 81 mg PO DAILY@1700 12/09/17 [History] Acetaminophen Suppository [Tylenol Suppository] 325 mg RECTAL Q4H PRN 11/09/18 [ History] Bisacodyl 10 mg RECTAL DAILY PRN 11/09/18 [History] Cholecalciferol (Vitamin D3) [Vitamin D3] 2,000 unit PO DAILY@1700 11/09/18 [ History] Clopidogrel [Plavix] 75 mg PO DAILY 11/09/18 [History] Cyanocobalamin (Vitamin B-12) [Vitamin B-12] 1,000 mcg PO DAILY@1700 11/09/18 [ History] Folic Acid 1 mg PO DAILY@1700 11/09/18 [History] Lactose-Reduced Food [Ensure Plus] 1 can PO TID 11/09/18 [History] Lansoprazole [Prevacid] 30 mg PO DAILY 11/09/18 [History] Losartan [Cozaar] 50 mg PO DAILY 11/09/18 [History] Magnesium Hydroxide [Milk of Magnesia] 2,400 mg PO DAILY PRN 11/09/18 [History] Menthol [Biofreeze] 1 applic TOPICAL BID 11/09/18 [History] Na Phos,M-B/Na Phos,Di-Ba [Fleet Adult] 133 ml RECTAL ONCE PRN 11/09/18 [History ] Sertraline [Zoloft] 50 mg PO HS@2100 11/09/18 [History] amLODIPine BESYLATE 5 mg PO DAILY 11/09/18 [History] Metoprolol Tartrate [Lopressor] 25 mg PO BID #60 tab 11/13/18 [Rx] Thiamine [Vitamin B-1] 100 mg PO DAILY@1700 11/16/18 [History] Atorvastatin [Lipitor] 40 mg PO HS tab 11/20/18 [Rx] Follow up Appointment(s)/Referral(s): Jose Blackwood NPC [REFERRING] - 3 Weeks (Office will call [facility] with follow up appointment.) [facility]anta Samuel [facility] Patient Instructions/Handouts: How to Use and Care for Your PEG Tube (DC), Ischemic Stroke (DC) Activity/Diet/Wound Care/Special Instructions: [facility] after J tube insertion Diet - dysphagia pureed, direct supervision, medicine in apple sauce/ yogurt , sit upright 90 degree when feeding, thin liquids cause cough, need speech therapy at [facility] with intermittent iv fluids for hydration, alternate solid and liquid, small bites of food Speech - laryngeal exercises Discharge Disposition: DC/[facility]NS INTERMEDIATE CARE FAC
[2018-11-22] MEDS: DEXTROSE 5%-0.9% NACL 1,000 ML IV SCH (16:55)
[2018-11-22] MEDS: FOLIC ACID 1 MG TAB PO SCH (18:07)
[2018-11-22] MEDS: LOSARTAN 50 MG TAB PO SCH (19:22)
--- NOTE | 2018-11-22 19:51 | P.PN ---
Subjective Progress Note Date: 11/22/18 Principal diagnosis: Malnutrition, dysphagia Patient without new complaints. Still having difficulty tolerating diet. Objective - Vital Signs Vital signs: Vital Signs Temp 98.3 F 11/22/18 16:05 Pulse 54 L 11/22/18 16:05 Resp 18 11/22/18 16:05 BP 145/77 11/22/18 16:05 Pulse Ox 97 11/22/18 16:05 Intake & Output 11/22/18 11/22/18 11/23/18 06:59 18:59 06:59 Intake Total 600 0 Output Total 400 1150 Balance 200 -1150 Weight 46.4 kg Intake: Intake, IV Titration 600 Amount Dextrose 5%-0.9% NaCl 1, 600 000 ml @ 75 mls/hr IV . [id number] CALEB Rx#:[id number] Oral 0 Output: Urine 400 1150 Other: Voiding Method Diaper Diaper Incontinent Incontinent # Voids 2 # Bowel Movements 1 - Exam Abdomen: Soft, nontender, nondistended - Labs CBC & Chem 7: 11/22/18 05:57 11/22/18 05:57 Labs: Abnormal Lab Results - Last 24 Hours (Table) 11/22/18 11/22/18 Range/Units 05:57 05:57 RBC 3.25 L (3.80-5.40) m/uL Hgb 9.3 L (11.4-16.0) gm/dL Hct 28.8 L (34.0-46.0) % Creatinine 0.44 L (0.52-1.04) mg/dL Glucose 136 H (74-99) mg/dL Assessment and Plan (1) Dysphagia Narrative/Plan: Clinical scenario discussed with the patient's son. Apparently they already have plans for transfer to [facility] for percutaneous radiology guided jejunostomy or gastrostomy tube placement. We'll sign off. Please call if needed. Current Visit: Yes Status: Acute Code(s): R13.10 - DYSPHAGIA, UNSPECIFIED SNOMED Code(s): 87621297
[2018-11-22] MEDS: SERTRALINE 50 MG TAB PO SCH (20:21)
[2018-11-22] MEDS: ATORVASTATIN 40 MG TAB PO SCH (20:21)
[2018-11-22 21:10] VITALS: BP 134/71; PULSE 67; RESP 16; TEMP 98.4
[2018-11-23] MEDS ORDERED: LOSARTAN 50 MG TAB PO SCH (09:00)
--- NOTE | 2018-11-26 10:10 | EEG ---
ELECTROENCEPHALOGRAM REPORT DATE OF SERVICE: 11/19/2018 REASON FOR TESTING: Stroke. DESCRIPTION OF THE PROCEDURE: This EEG was performed using a 21 channel digital electroencephalograph, following international 10-20 system. DESCRIPTION OF THE RECORDING: From the beginning of the tracing, and with patient's eyes closed, the background rhythm was mostly consisting of 8-9 Hz alpha frequency in the posterior occipital leads. No obvious asymmetry is seen. Occasional movement artifacts are noticed. Photic stimulation was performed with a minimal driving response seen. No pathological waves were elicited. Hyperventilation was not performed. The patient remains awake throughout the tracing. No epileptiform discharges were seen. Her EKG lead showed a regular rate and rhythm. INTERPRETATION: This awake EEG can be considered within normal limits. There is no asymmetry seen. No epileptiform discharges were noticed. The absence of epileptiform discharges does not rule out the diagnosis of epilepsy; therefore clinical correlation is recommended. TERA / DENNY: [id number] /
== END 2018-11-22 20:20 | disposition short-term general hospital (02) | DRG 41 ==
LOC: EC 15:05 → 3SCARD 18:26
PROVIDERS: ADMIT Internal Medicine; ATTEND Internal Medicine
PROC: B246ZZ4 Ultrasonography of Right and Left Heart, Transesophageal (ICD-10-PCS; principal; 2018-11-16)
PROC: 0JH602Z Insertion of Monitoring Device into Chest Subcutaneous Tissue and Fascia, Open Approach (ICD-10-PCS; 2018-11-19)
DX: I63.232 Cerebral infarction due to unspecified occlusion or stenosis of left carotid arteries (principal); E46 Unspecified protein-calorie malnutrition; G81.94 Hemiplegia, unspecified affecting left nondominant side; R29.704 NIHSS score 4; D72.829 Elevated white blood cell count, unspecified; E11.9 Type 2 diabetes mellitus without complications; E78.00 Pure hypercholesterolemia, unspecified; E78.5 Hyperlipidemia, unspecified; F17.200 Nicotine dependence, unspecified, uncomplicated; F32.9 Major depressive disorder, single episode, unspecified; I08.3 Combined rheumatic disorders of mitral, aortic and tricuspid valves; I10 Essential (primary) hypertension; K21.9 Gastro-esophageal reflux disease without esophagitis; M79.7 Fibromyalgia; I69.321 Dysphasia following cerebral infarction; Z79.02 Long term (current) use of antithrombotics/antiplatelets; Z79.82 Long term (current) use of aspirin; Z79.899 Other long term (current) drug therapy; Z82.49 Family history of ischemic heart disease and other diseases of the circulatory system; Z90.710 Acquired absence of both cervix and uterus; Z98.84 Bariatric surgery status; Z88.0 Allergy status to penicillin; Z88.2 Allergy status to sulfonamides; Z88.8 Allergy status to other drugs, medicaments and biological substances; Z90.49 Acquired absence of other specified parts of digestive tract; Z98.42 Cataract extraction status, left eye; Z98.41 Cataract extraction status, right eye; Z96.1 Presence of intraocular lens
CPT/HCPCS: 33282; 36415; 70450; 70496; 70498; 70551; 71045; 74230; 80048; 80053; 80061; 81003; 82550; 82553; 83090; 84484; 85025; 85027; 85610; 85730; 93005; 93306; 93312; 93320; 93325; 95816; 96360; 99285